=== PATIENT | female | born 1935 | race African-American/Black ===

== ENCOUNTER 2019-04-08 19:20 | Inpatient (IN) | payer MEDICARE, MEDICAID ==
[~2019-04-08] VITALS: Ht 162.6 cm; Wt 68.9 kg
[2019-04-08] MEDS ORDERED: Azithromycin 500 MG in D5W 275 ML IVPB ONE (19:30)
[2019-04-08] MEDS ORDERED: Vancomycin 1.25gm/NS Premix 275 ML IVPB SCH (19:30)
[2019-04-08 19:45] VITALS: BP 149/87
[2019-04-08 20:19] LABS: APPEARANCE,URINE SLIGHTLY CLOUDY; BILIRUBIN, URINE 1+ (NEGATIVE); GLUCOSE, URINE (UA) NEGATIVE (NEGATIVE); HEMATOCRIT 39.5 % (37.0-47.0); HEMOGLOBIN 12.3 G/DL (12.0-16.0); KETONES,URINE NEGATIVE (NEGATIVE); LEUKOCYTE ESTERASE ,URINE 1+ (NEGATIVE); MEAN CORPUSCULAR VOLUME 70 FL (80-99); NITRITE,URINE NEGATIVE (NEGATIVE); PH,URINE 5 (4.5-8.0); PLATELET COUNT 131 K/UL (150-450); PROTEIN,URINE 3+ (NEGATIVE); RED BLOOD COUNT 5.62 M/UL (4.20-5.40); RED CELL DISTRIBUTION WIDTH 14.2 % (11.6-14.8); UROBILINOGEN,URINE 4 MG/DL (0.0-1.0); WHITE BLOOD COUNT 17.7 K/UL (4.8-10.8)
[2019-04-08 20:20] LABS: COLOR,URINE AMBER
[2019-04-08 20:29] LABS: ANION GAP 7 mmol/L (5-15); BLOOD UREA NITROGEN 37 mg/dL (7-18); CALCIUM 8.3 MG/DL (8.5-10.1); CARBON DIOXIDE 27 MMOL/L (21-32); CHLORIDE 102 MMOL/L (98-107); CREATININE 1.6 MG/DL (0.55-1.30); POTASSIUM 3.7 MMOL/L (3.5-5.1); SODIUM 136 MMOL/L (136-145)
[2019-04-08] MEDS ORDERED: ALBUTEROL SULF8.5 GM INH (20:38)
[2019-04-08] MEDS ORDERED: DIPHENHYDRAMINE25 M1 ORAL (20:39)
[2019-04-08] MEDS ORDERED: DEPAKOTE250 MG PO (20:39)
[2019-04-08] MEDS ORDERED: METOPROLOL TART25 MG ORAL (20:40)
[2019-04-08] MEDS ORDERED: HYDRALAZINE HCL25 M1 ORAL (20:40)
[2019-04-08] MEDS ORDERED: FUROSEMIDE20 M1 ORAL (20:40)
[2019-04-08 20:42] LABS: ALANINE AMINOTRANSFERASE 43 U/L (12-78); ALBUMIN 2.6 G/DL (3.4-5.0); ALBUMIN/GLOBULIN RATIO 0.5 (1.0-2.7); ALKALINE PHOSPHATASE 86 U/L (46-116); ASPARTATE AMINO TRANSFERASE 70 U/L (15-37); CKMB < 0.5 NG/ML (0.0-3.6)
[2019-04-08] MEDS ORDERED: TRAMADOL HCL50 MG ORAL (20:42)
[2019-04-08] MEDS ORDERED: TYLENOL325 MG ORAL (20:42)
[2019-04-08] MEDS ORDERED: Pantoprazole Inj IVP ONE (20:45)
--- NOTE | 2019-04-08 20:54 | Emergency Room Report ---
History of Present Illness General Chief Complaint: Fever Present Illness HPI patient is an 84-year-old female presents after increased fever from senior living. Patient had prior history of dementia as well as increased debilitation. Patient had been given antipyretic at her facility. Patient was noted to have increased work of breathing as well as increased confusion compared to baseline. Patient had been sent in for further evaluation of fever. She had previous episodes of GI bleeding in the past. Patient was sent by Dr. Mchugh Allergies: Coded Allergies: PENICILLINS (Verified Allergy, Unknown, 04/08/19) Patient History Past Medical History: see triage record Reviewed Nursing Documentation: PMH: Agreed; PSxH: Agreed Review of Systems All Other Systems: negative except mentioned in HPI Physical Exam Vital Signs Date Time Temp Pulse Resp B/P (MAP) Pulse Ox O2 Delivery O2 Flow Rate FiO2 04/08/19 19:16 99.7 155 18 149/87 (107) 94 Room Air Sp02 EP Interpretation: reviewed, normal General Appearance: normal inspection, no apparent distress, non-toxic Head: atraumatic ENT: normal ENT inspection, hearing grossly normal, normal voice Neck: normal inspection, full range of motion, supple, no bony tend Respiratory: normal inspection, lungs clear, normal breath sounds, no respiratory distress, no retraction, no wheezing Cardiovascular #1: regular rate, rhythm, no edema Gastrointestinal: normal inspection, normal bowel sounds, non tender, soft, no guarding, no hernia Genitourinary: no CVA tenderness Musculoskeletal: normal inspection, back normal, normal range of motion Neurologic: normal inspection, alert, responsive, speech normal Psychiatric: normal inspection, judgement/insight normal, mood/affect normal Medical Decision Making Diagnostic Impression: Primary Impression: Severe sepsis Additional Impression: Urinary tract infection ER Course Patient presented for increased generalized weakness and fever. Differential diagnosis include was not limited to pneumonia, urinary tract infection, dehydration, among others. Because of complexity of patient's case laboratory tests and imaging studies were ordered. Patient was noted to have compos medical condition and appears to have some evidence of severe sepsis as she is markedly tachycardic. Left her testing showed elevated white blood count as well as elevated lactic acid level. Patient was empirically started on IV antibiotics as well as IV fluids. Per discussion with the patient's family as well as the patient's pulse patient is a DNR. She was noted to have some improvement in tachycardia after IV hydration. Dr. Braydon Mchugh was contacted for inpatient management. Labs Test 04/08/19 19:55 White Blood Count 17.7 K/UL (4.8-10.8) Red Blood Count 5.62 M/UL (4.20-5.40) Hemoglobin 12.3 G/DL (12.0-16.0) Hematocrit 39.5 % (37.0-47.0) Mean Corpuscular Volume 70 FL (80-99) Mean Corpuscular Hemoglobin 21.9 PG (27.0-31.0) Mean Corpuscular Hemoglobin Concent 31.2 G/DL (32.0-36.0) Red Cell Distribution Width 14.2 % (11.6-14.8) Platelet Count 131 K/UL (150-450) Mean Platelet Volume 6.5 FL (6.5-10.1) Neutrophils (%) (Auto) % (45.0-75.0) Lymphocytes (%) (Auto) % (20.0-45.0) Monocytes (%) (Auto) % (1.0-10.0) Eosinophils (%) (Auto) % (0.0-3.0) Basophils (%) (Auto) % (0.0-2.0) Urine Color [place] Urine Appearance Slightly cloudy Urine pH 5 (4.5-8.0) Urine Specific [place] 1.020 (1.005-1.035) Urine Protein 3+ (NEGATIVE) Urine Glucose (UA) Negative (NEGATIVE) Urine Ketones Negative (NEGATIVE) Urine Blood 3+ (NEGATIVE) Urine Nitrite Negative (NEGATIVE) Urine Bilirubin 1+ (NEGATIVE) Urine Ictotest Negative (NEGATIVE) Urine Urobilinogen 4 MG/DL (0.0-1.0) Urine Leukocyte Esterase 1+ (NEGATIVE) Urine RBC 10-15 /HPF (0 - 2) Urine WBC 5-10 /HPF (0 - 2) Urine Squamous Epithelial Cells Many /LPF (NONE/OCC) Urine Bacteria Moderate /HPF (NONE) Sodium Level 136 MMOL/L (136-145) Potassium Level 3.7 MMOL/L (3.5-5.1) Chloride Level 102 MMOL/L (98-107) Carbon Dioxide Level 27 MMOL/L (21-32) Anion Gap 7 mmol/L (5-15) Blood Urea Nitrogen 37 mg/dL (7-18) Creatinine 1.6 MG/DL (0.55-1.30) Estimat Glomerular Filtration Rate mL/min (>60) Glucose Level 108 MG/DL (74-106) Lactic Acid Level 3.30 mmol/L (0.4-2.0) Calcium Level 8.3 MG/DL (8.5-10.1) Aspartate Amino Transf (AST/SGOT) 70 U/L (15-37) Alanine Aminotransferase (ALT/SGPT) 43 U/L (12-78) Alkaline Phosphatase 86 U/L (46-116) Creatine Kinase MB < 0.5 NG/ML (0.0-3.6) Troponin I 0.037 ng/mL (0.000-0.056) Total Protein 8.0 G/DL (6.4-8.2) Albumin 2.6 G/DL (3.4-5.0) Globulin 5.4 g/dL Albumin/Globulin Ratio 0.5 (1.0-2.7) EKG Diagnostic Results Rate: tachycardiac Rhythm: NSR ST Segments: no acute changes Reevaluation Time: 20:52 Last Vital Signs Date Time Temp Pulse Resp B/P (MAP) Pulse Ox O2 Delivery O2 Flow Rate FiO2 04/08/19 19:45 155 18 Room Air 04/08/19 19:45 99.7 149/87 94 Status: unchanged Reevaluation Impression Slightly improved heart rate as well as mental status. Patient's tachycardia had somewhat improved. Continued respiratory difficulty. Disposition: ADMITTED INPATIENT Condition: Serious Lionel Zepeda MD Apr 08, 2019 20:54
[2019-04-08 21:04] LABS: BILIRUBIN,DIRECT 0.8 MG/DL (0.0-0.3)
[2019-04-08] MEDS ORDERED: Vancomycin 1 GM in NS 275 ML IVPB ONE (21:15)
[2019-04-08] MEDS ORDERED: Acetaminophen 650 MG SUPP RECTAL ONE (21:45)
[2019-04-08] MEDS ORDERED: D5 1/2NS 1,000 ML IV SCH (23:30)
[2019-04-08] MEDS ORDERED: Albuterol/Ipratropium 3ml neb HHN PRN (23:30)
[2019-04-09] VITALS: BP 130/57
[2019-04-09 04:00] VITALS: BP 158/76
[2019-04-09] MEDS ORDERED: traMADol 50mg tab ORAL PRN (04:00)
[2019-04-09 05:46] LABS: HEMATOCRIT 37.2 % (37.0-47.0); HEMOGLOBIN 11.7 G/DL (12.0-16.0); MEAN CORPUSCULAR VOLUME 71 FL (80-99); PLATELET COUNT 113 K/UL (150-450); RED BLOOD COUNT 5.23 M/UL (4.20-5.40); RED CELL DISTRIBUTION WIDTH 16.2 % (11.6-14.8)
[2019-04-09 05:56] LABS: WHITE BLOOD COUNT 25.9 K/UL (4.8-10.8)
[2019-04-09] MEDS ORDERED: Metoprolol Succinate XL 50mg tab ORAL SCH (06:30)
[2019-04-09] MEDS ORDERED: TRAMADOL HCL50 MG ORAL (07:51)
[2019-04-09] MEDS ORDERED: ACETAMINOPHEN325 M1 ORAL (07:51)
[2019-04-09] MEDS ORDERED: HYDRALAZINE HCL25 M1 ORAL (07:51)
[2019-04-09] MEDS ORDERED: MELATONIN3 MG ORAL (07:51)
[2019-04-09] MEDS ORDERED: COLACE100 MG ORAL (07:51)
[2019-04-09] MEDS ORDERED: DEPAKOTE250 MG PO (07:51)
[2019-04-09 09:00] VITALS: BP 134/76
[2019-04-09] MEDS ORDERED: Docusate 100mg cap ORAL SCH (09:00)
[2019-04-09] MEDS ORDERED: Depakote 500mg tab ORAL SCH (09:00)
[2019-04-09] MEDS ORDERED: Heparin 5000 units/ml inj SUBQ SCH (09:00)
[2019-04-09] MEDS: Heparin 5000 units/ml inj SUBQ SCH ×2 (09:35→21:00)
[2019-04-09] MEDS: D5 1/2NS 1,000 ML IV SCH ×2 (09:36→19:13)
--- NOTE | 2019-04-09 09:58 | Consultation ---
Consult Note Assessment/Plan HPI: 84yo woman with PMH below [facility], worsened confusion, refusal to eat, vomiting. [facility] 102 [facility]. Per [facility] staff, pt was vomiting for one day. Pt currently unable to provide history. She states yes to every question. Cannot follow commands. ID consulted for fever. ROS: per HPI PMH: HTN Dementia Seizure HF Anxiety Anemia MDD Hearing loss COPD Asthma GERD OA Hep C Meds: reviewed All: PCN SHx: [facility] resident FHx: noncontributory VS: reviewed Gen: NAD HEENT: anicteric sclera CV: RRR Resp: RRR. no wheezes Abd: normoactive Bs+. Soft. no TTP Ext: no LE edema Labs: reviewed Assessment: Tmax 102 [facility] Leukocytosis, uptrending Lactic acidosis Influenza flu A positive On 2L NC CXR: No definite infiltrate or pulmonary vascular congestion identified. The heart is borderline enlarged. The aorta is mildly enlarged consistent with atherosclerotic vascular disease. The bones are osteopenic. r/o bacteremia 04/08 BCx: P Possible UTI UA 5-10WBC UCx: P 03/25/19 HIV Abt negative Plan: Oseltamivir #1 Continue Azithromycin #2 04/08 SP Vancomycin and Azithromycin #1 f/u bcx f/u ucx elevate HOB, aspiration precaution Thank you for this consult. [facility] will continue to follow the patient with you. Tana Steinberg MD Apr 09, 2019 09:58
[2019-04-09 10:18] LABS: HEMATOCRIT 31.9 % (37.0-47.0); MEAN CORPUSCULAR VOLUME 71 FL (80-99); PLATELET COUNT 100 K/UL (150-450); RED BLOOD COUNT 4.51 M/UL (4.20-5.40); RED CELL DISTRIBUTION WIDTH 14.3 % (11.6-14.8)
[2019-04-09 10:23] LABS: WHITE BLOOD COUNT 23.9 K/UL (4.8-10.8)
[2019-04-09 10:29] LABS: ANION GAP 7 mmol/L (5-15); BLOOD UREA NITROGEN 42 mg/dL (7-18); CALCIUM 7.5 MG/DL (8.5-10.1); CARBON DIOXIDE 23 MMOL/L (21-32); CHLORIDE 104 MMOL/L (98-107); CREATININE 1.8 MG/DL (0.55-1.30); POTASSIUM 4.3 MMOL/L (3.5-5.1); SODIUM 134 MMOL/L (136-145)
--- NOTE | 2019-04-09 11:01 | Diagnostic Imaging Report ---
Indication: Dyspnea Comparison: None A single view chest radiograph was obtained. Findings: No definite infiltrate or pulmonary vascular congestion identified. The heart is borderline enlarged. The aorta is mildly enlarged consistent with atherosclerotic vascular disease. The bones are osteopenic. Impression: No acute disease
--- NOTE | 2019-04-09 11:23 | General Progress Note ---
Progress Note Progress Note [id number] full consult dictated Yael Giang MD Apr 09, 2019 11:23
[2019-04-09 11:26] LABS: APPEARANCE,URINE SLIGHTLY CLOUDY; BILIRUBIN, URINE 1+ (NEGATIVE); COLOR,URINE BROWN; GLUCOSE, URINE (UA) NEGATIVE (NEGATIVE); KETONES,URINE 1+ (NEGATIVE); LEUKOCYTE ESTERASE ,URINE 1+ (NEGATIVE); NITRITE,URINE NEGATIVE (NEGATIVE); PH,URINE 5 (4.5-8.0); PROTEIN,URINE 2+ (NEGATIVE); UROBILINOGEN,URINE 4 MG/DL (0.0-1.0)
[2019-04-09 12:00] VITALS: BP 138/70
[2019-04-09] MEDS: Azithromycin 250mg tab ORAL SCH (12:57)
--- NOTE | 2019-04-09 15:09 | Cardiology Report ---
APPROVED REPORT EXAM: Two-dimensional and M-mode echocardiogram with Doppler and color Doppler. INDICATION Other M-Mode DIMENSIONS IVSd1.4 (0.7-1.1cm)Left Atrium (MM)3.3 (1.6-4.0cm) LVDd3.9 (3.5-5.6cm)Aortic Root2.7 (2.0-3.7cm) PWd1.2 (0.7-1.1cm)Aortic Cusp Exc.1.6 (1.5-2.0cm) LVDs2.0 (2.5-4.0cm) PWs1.3 cm Normal left ventricular chamber size and systolic function. Dyskinetic septal motion. Left ventricular ejection fraction estimated to be 55-60 %. Mild left ventricular hypertrophy. Anterior Echo-free space, may be due to pericardial fat or effusion. All other cardiac chamber sizes are within normal limits. Focal aortic valve sclerosis with adequate cusp excursion. Thickened mitral valve leaflets with normal excursion. Mild mitral annulus and aortic root calcification. Pulmonic valve not well visualized. Normal tricuspid valve structure. IVC is normal in size without physiological collapse. A color flow and spectral Doppler study was performed and revealed: No aortic regurgitation. Mild mitral regurgitation. Mitral diastolic velocities suggest mild left ventricular diastolic dysfunction (Grade I). Mild tricuspid regurgitation. Tricuspid systolic velocities suggests peak right ventricular systolic pressure of 43 mmHg, consistent with mild pulmonary hypertension. No pulmonic regurgitation present.
--- NOTE | 2019-04-09 15:45 | History and Physical Report ---
DATE OF ADMISSION: 04/08/2019 DATE AND TIME SEEN: 04/09/2019 at 9 a.m. CONSULTANTS: 1. Brennan Barnett M.D. 2. Yael Giang M.D. 3. Maikel Garrett M.D. 4. Ferny Lawton M.D. 5. Richie Payne M.D. CHIEF COMPLAINT: UTI, sepsis, tachycardia, confusion. BRIEF HISTORY: This is an 84-year-old female from [facility], who presented with above-mentioned diagnoses, admitted to step-down for further care. Currently, O2 NC, slight short of breath in bed. Not talking much. REVIEW OF SYSTEMS: Unavailable due to confusion. PAST MEDICAL HISTORY: Include confusion, renal insufficiency. PAST SURGICAL HISTORY: Unknown. ALLERGIES: Penicillin. MEDICATIONS: Include mirtazapine, heparin, furosemide, divalproex, Tylenol, hydralazine, tramadol, albuterol, magnesium, vancomycin, and . SOCIAL HISTORY: Unable to obtain secondary to the patient's condition. PHYSICAL EXAMINATION: GENERAL: Calm, O2 NC, slight short of breath in bed. Disoriented x3, in no acute distress. VITAL SIGNS: Temperature is 99, pulse 107, respirations 22, and blood pressure 134/76. CARDIOVASCULAR: No murmur. LUNGS: Poor air exchange. ABDOMEN: Bowel sounds distant. EXTREMITIES: No cyanosis, clubbing, or edema. NEUROLOGIC: The patient moves all extremities, slightly weak. LABORATORY AND DIAGNOSTIC DATA: Labs at this time show white count 25, H and H 11/37, and platelets 113,000. BMP shows BUN and creatinine 37/1.6. Lactic acid 3.3. Troponin 0.037. Albumin 2.6. Urinalysis showed 1+ leukocyte esterase. ASSESSMENT: 1. Urinary tract infection. 2. Sepsis. 3. Tachycardia. 4. Renal insufficiency. 5. Malnutrition. 6. Confusion. PLAN: 1. O2 and pulmonary treatment. 2. Antibiotics per Infectious Disease. 3. PT and dietary evaluation. 4. Resume home medications. 5. CBC and BMP in the morning. Braydon Mchugh D.O. DR: CRISTHIAN JOB#: [id number] CC:
[2019-04-09 16:00] VITALS: BP 140/89
--- NOTE | 2019-04-09 17:00 | Consultation ---
DATE OF CONSULTATION: 04/09/2019 NEPHROLOGY CONSULTATION CONSULTING PHYSICIAN: Yael Giang M.D. REFERRING PHYSICIAN: Braydon Mchugh M.D. REASON FOR CONSULTATION: Acute renal failure. HISTORY OF PRESENT ILLNESS: The patient is an 84-year-old female with extensive medical history including COPD, hypertension, history of dementia, schizophrenia who found to have fever of 102 at [facility]. Subsequently, the patient was sent to ER. In the ER, the patient found to be severely dehydrated, hypotensive. Upon ER evaluation, the patient received multiple doses of . The patient did not have any urine output this morning. A Hansen catheter was placed and the patient had more than 500 mL of of urine via Hansen catheter. The patient found to have an acute renal failure. I was called for management of renal disease and electrolyte imbalance. PAST MEDICAL HISTORY: 1. Hypertension. 2. COPD. 3. GERD. 4. Hepatitis C. 5. Dementia. 6. Schizophrenia. ALLERGIES: She is allergic to penicillin. MEDICATIONS: List was reviewed. REVIEW OF SYSTEMS: Unable to obtain due to patient's condition. The patient opened her eyes with verbal stimuli and not following commands. PHYSICAL EXAMINATION: VITAL SIGNS: The patient has a temperature of 99.7, pulse rate of 107, blood pressure 134/76, and respiratory rate of 22. HEAD AND NECK: Bitemporal wasting. Extraocular movement intact. Pupils are reactive to light and accommodation. Very dry mucous membranes. LUNGS: Clear to auscultation. CARDIAC: Regular rate and rhythm. S1 and S2 normal. No rub. ABDOMEN: Soft, nontender, and nondistended. EXTREMITIES: A 2+ edema. No clubbing. No cyanosis. LABORATORY AND DIAGNOSTIC DATA: Sodium 136, potassium 3.7, chloride 102, bicarb 24, BUN 36, creatinine 1.6, glucose of 108, calcium of 8.3. Total bilirubin of 2, AST of 70, ALT of 43. Troponin is less than 0.5. Total protein of 8 and albumin of 2.6. UA revealed specific gravity of 1.020, protein 3+, blood 3+, leukocyte esterase 1, wbc's count of 5 to 10, rbc's 10 to 15, bacteria many. CBC revealed WBC count of 23,000, hemoglobin of 10, hematocrit of 31, and platelet count of 100. ASSESSMENT: 1. Acute renal failure, the etiology of acute renal failure is ATN due to unstable hemodynamics. 2. Hypocalcemia, correct for albumin. The patient may have normal albumin. 3. Failure to thrive. 4. Fever. 5. Urinary tract infection. 6. Hematuria. PLAN: 1. We will obtain UA. 2. Check the random urine sodium and creatinine to calculate fractional excretion of sodium. 3. Check proteinuria. 4. Check microalbuminuria. 5. Ultrasound of the kidney. 6. IV hydration. 7. Check prealbumin level for evaluation of nutritional status. 8. Check vitamin D level for hypocalcemia. At the end, I would like to thank, Dr. Braydon Mchugh, for allowing me to participate in the care of this patient. Yael Giang M.D. DR: Lele JOB#: [id number] CC:
--- NOTE | 2019-04-09 18:01 | Consultation ---
DATE OF CONSULTATION: 04/09/2019 NOTE: CANCELED DICTATION HISTORY OF PRESENT ILLNESS: The patient is an 84-year-old female. This is a female patient who came into the hospital should she . Wyatt Payne M.D. DR: RICHMOND JOB#: [id number] CC:
--- NOTE | 2019-04-09 18:30 | Consultation ---
DATE OF CONSULTATION: 04/09/2019 INITIAL PSYCHIATRIC CONSULTATION CONSULTING PHYSICIAN: Wyatt Payne M.D. HISTORY OF PRESENT ILLNESS: This is an 84-year-old female patient. She was admitted to the hospital because she had [facility] affect, but she also has increased altered mental status, confusion, decline in cognition below baseline. She has got feelings of helplessness, hopelessness, low energy, poor appetite, loss of interest in activity. She has got dehydration and that is why she does require inpatient treatment at this time. at bedside, very confused, disorganized, poor historian. MEDICAL HISTORY: This patient has a medical history significant for sepsis and some problems breathing before and also she has hypertension as well for. ALLERGIES: To penicillin. PSYCHOTROPIC MEDICATIONS ON ADMISSION: The patient takes Depakote 500 mg daily per chart. SUBSTANCE ABUSE HISTORY: No history of any drug and alcohol use. FAMILY PSYCHIATRIC HISTORY: Denies. PAIN ASSESSMENT: 08/02 pain. DEVELOPMENTAL PROBLEMS: Denies. SOCIAL HISTORY: This patient is financially supported by [employer] and Medicare. . PSYCHIATRIC HISTORY: History of major depression with psychotic features, rule out dementia with psychosis. STRENGTHS: She is motivated to get better, has a place to live. WEAKNESSES: Minimal support system. MENTAL STATUS EXAMINATION: This is an 84-year-old female. Appearance is disheveled. Attitude, irritable and agitated. Affect, guarded and restricted. Intellect poor, she does not know current events, does not know last four presidents. Mood, depressed and anxious. Motor activity, psychomotor agitation. Attention span is poor because she cannot do serial sevens or spell world backwards. Orientation x2. She is oriented to person and place, not to time and situation. Speech is low volume and slurred. Thought process, disorganized and illogical. Thought content, auditory hallucinations and paranoia. Perception is poor because she has perceptual disturbances such as auditory hallucinations and paranoid delusions. Abstract reasoning is poor because she does not understand proverbs, only has concrete thinking. Insight is poor because she does not recognize having psych disorder. Judgment is poor because she does not accept consequences to her actions. She is not able to make clear decisions for herself. Short-term memory 0/3 of a 3-word recall. Long-term memory is poor because she has difficulty to recall any long-term events in her life such as high school that she went to. DIAGNOSES: 1. Major depressive disorder, mild, recurrent with psychotic features, rule out dementia with psychosis. 2. No secondary. 3. Medical, sepsis and fever. 4. Psychosocial stressors financial. 5. Function impairment is mild. PLAN: For this patient is, I am going to start the patient on Namenda at a dose of 5 mg daily to prevent any further decline in cognition. She will continue to be followed by Psychiatry throughout hospital course. 20 minutes of insight-oriented psychotherapy was provided to help this patient recognize her psychiatric symptoms and cognitive deficits, so she has better understanding and good impulse control on the unit. 20 minutes of supportive psychotherapy. Chart reviewed. Discussed with staff. The patient is seen and assessed at bedside. I would like to thank, Dr. Braydon Mchugh, for this interesting consultation. Wyatt Payne M.D. DR: GENE JOB#: [id number] CC:
--- NOTE | 2019-04-09 18:45 | Consultation ---
DATE OF CONSULTATION: 04/09/2019 NEPHROLOGY CONSULTATION CONSULTING PHYSICIAN: Yael Giang M.D. REFERRING PHYSICIAN: Braydon Mchugh M.D. REASON FOR CONSULTATION: Acute renal failure. HISTORY OF PRESENT ILLNESS: The patient is an 84-year-old female with extensive medical history including COPD, hypertension, history of dementia, schizophrenia who found to have a fever [facility] 102 [facility] the [facility]. Subsequently, the patient was sent to ER. In the ER, the patient found to be severely dehydrated, hypotensive. Upon ER evaluation, the patient received multiple doses of bolus . The patient did not have any urine output this morning. A Hansen catheter was placed and the patient had more than 500 mL of of urine via Hansen catheter. The patient found to have an acute renal failure. I was called for management of renal disease and electrolyte imbalance. PAST MEDICAL HISTORY: 1. Hypertension. 2. COPD. 3. GERD. 4. Hepatitis C. 5. Dementia. 6. Schizophrenia. ALLERGIES: She is allergic to penicillin. MEDICATIONS: List was reviewed. REVIEW OF SYSTEMS: Unable to obtain due to patient's condition. The patient opened her eyes with verbal stimuli and not following commands. PHYSICAL EXAMINATION: VITAL SIGNS: The patient has a temperature of 99.7, pulse rate of 107, blood pressure 134/76, and respiratory rate of 22. HEAD AND NECK: Bitemporal wasting. Extraocular movement intact. Pupils are reactive to light and accommodation. Very dry mucous membranes. LUNGS: Clear to auscultation. CARDIAC: Regular rate and rhythm. S1 and S2. No murmur. No rub. ABDOMEN: Soft, nontender, and nondistended. EXTREMITIES: A 2+ edema. No clubbing. No cyanosis. LABORATORY AND DIAGNOSTIC DATA: Sodium 136, potassium 3.7, chloride 102, bicarb 24, BUN 36, creatinine 1.6, glucose of 108, calcium of 8.3. Total bilirubin of 2, AST of 70, ALT of 43. Troponin is less than 0.5. Total protein of 8 and albumin of 2.6. UA revealed specific gravity of 1.020, protein 3+, blood 3+, leukocyte esterase 1, wbc count of 5 to 10, rbc's 10 to 15, bacteria many. CBC revealed WBC count of 23,000, hemoglobin of 10, hematocrit of 31, and platelet count of 100. ASSESSMENT: 1. Acute renal failure, the etiology of acute renal failure is ATN due to unstable hemodynamics. 2. Hypocalcemia, correct hypocalcemia for albumin. The patient may have normal albumin. 3. Failure to thrive. 4. Fever. 5. Urinary tract infection. 6. Hematuria. PLAN: 1. We will obtain UA. 2. Check the random urine sodium and creatinine to calculate fractional excretion of sodium. 3. Check proteinuria. 4. Check microalbuminuria. 5. Ultrasound of the kidney. 6. IV hydration. 7. Check prealbumin level for evaluation of nutritional status. 8. Check vitamin D level for hypocalcemia. At the end, I would like to thank, Dr. Braydon Mchugh, for allowing me to participate in the care of this patient. Yael Giang M.D. DR: Lele JOB#: [id number] CC:
[2019-04-09 20:00] VITALS: BP 126/72
--- NOTE | 2019-04-09 22:15 | Consultation ---
DATE OF CONSULTATION: 04/09/2019 PULMONARY CONSULTATION CONSULTING PHYSICIAN: Ferny Lawton M.D. REFERRING PHYSICIAN: Braydon Mchugh D.O. HISTORY OF PRESENT ILLNESS: This is an 84-year-old female, who was brought to the hospital with fever. She is a longterm resident with dementia. She was also found to be short of breath. The patient reports a previous history of GI bleeding. This is per review of medical records. PAST MEDICAL HISTORY: Notable for hypertension, dementia, seizure disorder, anxiety, anemia, hearing loss, COPD, GERD, and hep C. ALLERGIES: Penicillin. HOME MEDICATIONS: Reviewed and reconciled in the chart. REVIEW OF SYSTEMS: . PHYSICAL EXAMINATION: GENERAL: Reveals an elderly female. VITAL SIGNS: Blood pressure is 110/70, heart rate is 94, T-max 99.1, previously was 100. HEENT: Unremarkable. LUNGS: Clear breath sounds. ABDOMEN: Soft. EXTREMITIES: There is no edema. NEUROLOGIC: Nonfocal. LABORATORY DATA: Lab testing shows white count 23,000, hemoglobin of 10, creatinine 1.8. Urinalysis shows few wbc's, serology is negative. So far, blood cultures are negative. Urine culture, no growth. IMAGING STUDIES: The patient underwent a chest x-ray yesterday, which showed . IMPRESSION: 1. Sepsis, source unknown. 2. Hypertension. 3. COPD. 4. Dementia. 5. . DISCUSSION: Agree with admission and care. The patient has been started on broad-spectrum antibiotics, with which I concur. We will order pulmonary hygiene and oxygen. We will follow as apron operator. Ferny Lawton M.D. DR: TRACY JOB#: [id number] CC:
[2019-04-10] VITALS: BP 136/58
[2019-04-10 04:00] VITALS: BP 143/53
[2019-04-10] MEDS: D5 1/2NS 1,000 ML IV SCH ×2 (05:14→13:32)
[2019-04-10 06:03] LABS: HEMATOCRIT 31.4 % (37.0-47.0); HEMOGLOBIN 9.7 G/DL (12.0-16.0); MEAN CORPUSCULAR VOLUME 71 FL (80-99); PLATELET COUNT 106 K/UL (150-450); RED BLOOD COUNT 4.39 M/UL (4.20-5.40); RED CELL DISTRIBUTION WIDTH 17.4 % (11.6-14.8)
[2019-04-10 06:10] LABS: WHITE BLOOD COUNT 22.5 K/UL (4.8-10.8)
--- NOTE | 2019-04-10 06:58 | Pulmonology Progress Note ---
Assessment/Plan Assessment/Plan IMPRESSION: 1. Sepsis, source unknown. 2. Hypertension. 3. COPD. 4. Dementia. DISCUSSION: Agree with admission and care. Continue abx. Continue pulmonary hygiene and oxygen. I will follow as hosted services analyst. Subjective Interval Events: WBC high (26K); no new complaints Constitutional: Reports: no symptoms HEENT: Repors: no symptoms Respiratory: Reports: no symptoms Cardiovascular: Reports: no symptoms Gastrointestinal/Abdominal: Reports: no symptoms Genitourinary: Reports: no symptoms Allergies: Coded Allergies: PENICILLINS (Verified Allergy, Unknown, 04/08/19) Objective Last 24 Hour Vital Signs Date Time Temp Pulse Resp B/P (MAP) Pulse Ox O2 Delivery O2 Flow Rate FiO2 04/10/19 04:00 98.7 92 19 143/53 (83) 98 04/10/19 04:00 Nasal Cannula 2.0 04/10/19 04:00 2.0 04/10/19 03:41 103 04/10/19 00:00 98.8 93 20 136/58 (84) 98 04/10/19 00:00 Nasal Cannula 2.0 04/09/19 23:56 86 04/09/19 20:00 100.8 98 18 126/72 (90) 98 04/09/19 20:00 2.0 04/09/19 20:00 Nasal Cannula 2.0 04/09/19 19:23 87 04/09/19 17:20 98.6 04/09/19 16:00 2.0 04/09/19 16:00 100.9 94 20 140/89 (106) 99 04/09/19 16:00 99 04/09/19 16:00 Nasal Cannula 2.0 04/09/19 12:00 94 04/09/19 12:00 Nasal Cannula 2.0 04/09/19 12:00 100.4 95 20 138/70 (92) 99 04/09/19 12:00 2.0 04/09/19 10:30 Nasal Cannula 2.0 04/09/19 09:00 99.1 107 22 134/76 (95) 100 04/09/19 08:00 Nasal Cannula 2.0 04/09/19 08:00 2.0 04/09/19 08:00 133 04/09/19 07:45 115 20 95 Nasal Cannula 2.0 28 04/09/19 07:40 95 Nasal Cannula 2.0 28 Intake and Output 04/09/19 04/10/19 19:00 07:00 Intake Total 1068 ml 1019.999 ml Output Total 250 ml 300 ml Balance 818 ml 719.999 ml Intake Oral 50 ml 15 ml IV Total 1018 ml 1004.999 ml Output Urine Total 250 ml 300 ml General Appearance: no acute distress HEENT: normocephalic Respiratory/Chest: chest wall non-tender, lungs clear Cardiovascular: normal peripheral pulses Abdomen: normal bowel sounds Microbiology Date/Time Source Procedure Growth Status 04/08/19 19:45 Blood Blood Culture - Preliminary NO GROWTH AFTER 24 HOURS Resulted 04/08/19 19:40 Blood Blood Culture - Preliminary NO GROWTH AFTER 24 HOURS Resulted 04/09/19 10:00 Nose - Final Complete 04/09/19 10:00 Nose - Final Complete 04/09/19 10:00 Indwelling Cath Urine Culture - Preliminary NO GROWTH Resulted 04/08/19 19:55 Urine,Clean Catch Urine Culture - Preliminary NO GROWTH AFTER 24 HOURS Resulted Laboratory Tests 04/09/19 08:20: Lactic Acid Level 2.80H 04/09/19 09:40: White Blood Count 23.9*H, Red Blood Count 4.51, Hemoglobin 10.0L, Hematocrit 31.9L, Mean Corpuscular Volume 71L, Mean Corpuscular Hemoglobin 22.1L, Mean Corpuscular Hemoglobin Concent 31.3L, Red Cell Distribution Width 14.3, Platelet Count 100L, Mean Platelet Volume 7.5, Neutrophils (%) (Auto) , Lymphocytes (%) (Auto) , Monocytes (%) (Auto) , Eosinophils (%) (Auto) , Basophils (%) (Auto) , Differential Total Cells Counted 100, Neutrophils % ( Manual) 84H, Lymphocytes % (Manual) 2L, Monocytes % (Manual) 3, Eosinophils % ( Manual) 0, Basophils % (Manual) 0, Band Neutrophils 11H, Platelet Estimate DecreasedL, Platelet Morphology Normal, Sodium Level 134L, Potassium Level 4.3, Chloride Level 104, Carbon Dioxide Level 23, Anion Gap 7, Blood Urea Nitrogen 42H, Creatinine 1.8H, Estimat Glomerular Filtration Rate , Glucose Level 80, Calcium Level 7.5L, Magnesium Level 1.8, Troponin I 0.040 04/09/19 10:00: Urine Color Brown, Urine Appearance Slightly cloudy, Urine pH 5, Urine Specific [place] 1.020, Urine Protein 2+H, Urine Glucose (UA) Negative, Urine Ketones 1+H , Urine Blood 2+H, Urine Nitrite Negative, Urine Bilirubin 1+H, Urine Ictotest Negative, Urine Urobilinogen 4H, Urine Leukocyte Esterase 1+H, Urine RBC 5-10H, Urine WBC 0-2, Urine Squamous Epithelial Cells Occasional, Urine Amorphous Sediment ModerateH, Urine Bacteria Few, Urine Mucus FewH, Urine Eosinophils None seen, Urine Random Creatinine [Pending], Urine Random Microalbumin [Pending ], Urine Random Total Protein 82H, Urine Creatinine 198.7H, Urine Microalbumin/ Creatinine Ratio [Pending], Urine Legionella Antigen [Pending] 04/09/19 14:05: Lactic Acid Level 1.90 04/10/19 03:40: White Blood Count 22.5*H, Red Blood Count 4.39, Hemoglobin 9.7L, Hematocrit 31.4L, Mean Corpuscular Volume 71L, Mean Corpuscular Hemoglobin 22.2L, Mean Corpuscular Hemoglobin Concent 31.0L, Red Cell Distribution Width 17.4H, Platelet Count 106L, Mean Platelet Volume 9.3, Neutrophils (%) (Auto) , Lymphocytes (%) (Auto) , Monocytes (%) (Auto) , Eosinophils (%) (Auto) , Basophils (%) (Auto) , Neutrophils % (Manual) [Pending], Lymphocytes % (Manual) [Pending], Platelet Estimate [Pending], Platelet Morphology [Pending], Sodium Level [Pending], Potassium Level [Pending], Chloride Level [Pending], Carbon Dioxide Level [Pending], Blood Urea Nitrogen [Pending], Creatinine [Pending], Estimat Glomerular Filtration Rate [Pending], Glucose Level [Pending], Calcium Level [Pending] Current Medications Medications (Trade) Dose Ordered Sig/Brady Route PRN Reason Start Time Stop Time Status Last Admin Dose Admin Acetaminophen (Tylenol) 650 mg Q4H PRN RECTAL Mild Pain (Pain Scale 1-3) 04/08/19 23:30 05/08/19 23:29 Acetaminophen (Tylenol) 650 mg Q6H PRN ORAL Mild Pain/Temp > 100.5 04/09/19 04:00 05/09/19 03:59 04/09/19 16:19 Albuterol/ Ipratropium (Albuterol/ Ipratropium) 3 ml Q6H PRN HHN Shortness of Breath 04/08/19 23:30 04/13/19 23:29 Azithromycin (Zithromax) 250 mg DAILY ORAL 04/09/19 12:00 04/16/19 11:59 04/09/19 12:57 Dextrose/Sodium Chloride 1,000 ml @ 100 mls/hr Q10H IV 04/09/19 10:00 05/09/19 09:59 04/10/19 05:14 Divalproex Sodium (Depakote Sprinkles) 125 mg EVERY 6 HOURS ORAL 04/10/19 12:00 05/10/19 11:59 Docusate Sodium (Colace) 100 mg DAILY ORAL 04/10/19 09:00 05/09/19 08:59 Furosemide (Lasix) 20 mg DAILY ORAL 04/09/19 09:00 05/09/19 08:59 04/09/19 09:33 Heparin Sodium (Porcine) (Heparin 5000 units/ml) 5,000 units EVERY 12 HOURS SUBQ 04/09/19 09:30 05/09/19 09:29 04/09/19 09:35 Hydralazine HCl (Apresoline) 25 mg Q6H PRN ORAL For High Blood Pressure 04/09/19 04:00 05/09/19 03:59 Oseltamivir Phosphate (Tamiflu) 30 mg DAILY ORAL 04/09/19 13:00 04/14/19 12:59 04/09/19 13:03 Tramadol HCl (Ultram) 50 mg Q8H PRN ORAL Severe Pain (Pain Scale 7-10) 04/09/19 04:00 04/16/19 03:59 Ferny Lawton MD Apr 10, 2019 06:58
[2019-04-10 07:22] LABS: ANION GAP 12 mmol/L (5-15); BLOOD UREA NITROGEN 47 mg/dL (7-18); CALCIUM 7.7 MG/DL (8.5-10.1); CARBON DIOXIDE 22 MMOL/L (21-32); CHLORIDE 108 MMOL/L (98-107); CREATININE 1.7 MG/DL (0.55-1.30); POTASSIUM 3.9 MMOL/L (3.5-5.1); SODIUM 142 MMOL/L (136-145)
[2019-04-10 08:00] VITALS: BP 129/60
[2019-04-10] MEDS: Heparin 5000 units/ml inj SUBQ SCH ×2 (09:00→20:14)
[2019-04-10] MEDS: Docusate 100mg/10ml Liq ORAL SCH (09:24)
[2019-04-10] MEDS: Azithromycin 250mg tab ORAL SCH (09:25)
--- NOTE | 2019-04-10 10:11 | General Progress Note ---
Assessment/Plan Problem List: (1) Malnutrition ICD Codes: E46 - Unspecified protein-calorie malnutrition SNOMED: 08308054 (2) Confusion ICD Codes: R41.0 - Disorientation, unspecified SNOMED: 262523518 (3) Renal insufficiency ICD Codes: N28.9 - Disorder of kidney and ureter, unspecified SNOMED: 099179614, 002156678 (4) Urinary tract infection ICD Codes: N39.0 - Urinary tract infection, site not specified SNOMED: 42012254 (5) Severe sepsis ICD Codes: A41.9 - Sepsis, unspecified organism; R65.20 - Severe sepsis without septic shock SNOMED: 31942793 Status: unchanged Assessment/Plan: o2 pulm tx abx pt diet eval cbc bmp am ltach eval Subjective Constitutional: Reports: weakness Allergies: Coded Allergies: PENICILLINS (Verified Allergy, Unknown, 04/08/19) All Systems: reviewed and negative except above Subjective o2nc sleepy Objective Last 24 Hour Vital Signs Date Time Temp Pulse Resp B/P (MAP) Pulse Ox O2 Delivery O2 Flow Rate FiO2 04/10/19 04:00 98.7 92 19 143/53 (83) 98 04/10/19 04:00 Nasal Cannula 2.0 04/10/19 04:00 2.0 04/10/19 03:41 103 04/10/19 00:00 98.8 93 20 136/58 (84) 98 04/10/19 00:00 Nasal Cannula 2.0 04/09/19 23:56 86 04/09/19 20:00 100.8 98 18 126/72 (90) 98 04/09/19 20:00 2.0 04/09/19 20:00 Nasal Cannula 2.0 04/09/19 19:23 87 04/09/19 17:20 98.6 04/09/19 16:00 2.0 04/09/19 16:00 100.9 94 20 140/89 (106) 99 04/09/19 16:00 99 04/09/19 16:00 Nasal Cannula 2.0 04/09/19 12:00 94 04/09/19 12:00 Nasal Cannula 2.0 04/09/19 12:00 100.4 95 20 138/70 (92) 99 04/09/19 12:00 2.0 04/09/19 10:30 Nasal Cannula 2.0 Intake and Output 04/09/19 04/10/19 18:59 06:59 Intake Total 1128 ml 1019.999 ml Output Total 250 ml 300 ml Balance 878 ml 719.999 ml Intake Oral 50 ml 15 ml IV Total 1078 ml 1004.999 ml Output Urine Total 250 ml 300 ml Laboratory Tests 04/09/19 14:05: Lactic Acid Level 1.90 04/10/19 03:40: White Blood Count 22.5*H, Red Blood Count 4.39, Hemoglobin 9.7L, Hematocrit 31.4L, Mean Corpuscular Volume 71L, Mean Corpuscular Hemoglobin 22.2L, Mean Corpuscular Hemoglobin Concent 31.0L, Red Cell Distribution Width 17.4H, Platelet Count 106L, Mean Platelet Volume 9.3, Neutrophils (%) (Auto) , Lymphocytes (%) (Auto) , Monocytes (%) (Auto) , Eosinophils (%) (Auto) , Basophils (%) (Auto) , Neutrophils % (Manual) [Pending], Lymphocytes % (Manual) [Pending], Platelet Estimate [Pending], Platelet Morphology [Pending], Sodium Level 142, Potassium Level 3.9, Chloride Level 108H, Carbon Dioxide Level 22, Anion Gap 12, Blood Urea Nitrogen 47H, Creatinine 1.7H, Estimat Glomerular Filtration Rate , Glucose Level 79, Calcium Level 7.7L Height (Feet): 5 Height (Inches): 4.00 Weight (Pounds): 126 General Appearance: lethargic EENT: normal ENT inspection Neck: normal alignment Cardiovascular: normal peripheral pulses, normal rate, regular rhythm Respiratory/Chest: chest wall non-tender, lungs clear, normal breath sounds Abdomen: normal bowel sounds, non tender, soft Extremities: normal inspection Edema: no edema noted Arm (L), no edema noted Arm (R), no edema noted Leg (L), no edema noted Leg (R), no edema noted Pedal (L), no edema noted Pedal (R), no edema noted Generalized Neurologic: motor weakness Skin: normal pigmentation, warm/dry Braydon Mchugh DO Apr 10, 2019 10:11
[2019-04-10 12:00] VITALS: BP 139/66
[2019-04-10] MEDS: Depakote 125mg Sprinkles ORAL SCH ×3 (12:42→23:18)
--- NOTE | 2019-04-10 14:46 | Nephrology Progress Note ---
Assessment/Plan Assessment 1. Hypertension. 2. COPD. 3. GERD. 4. Hepatitis C. 5. Dementia. 6. Schizophrenia. 7.positive flu Plan plan continue current iv check vit d nutritional support monitoring renal function avoid NSAID Replace electrolyte as need it Subjective Constitutional: Reports: no symptoms HEENT: Reports: no symptoms Genitourinary: Reports: no symptoms Neurologic/Psychiatric: Reports: no symptoms Objective Objective Last 24 Hour Vital Signs Date Time Temp Pulse Resp B/P (MAP) Pulse Ox O2 Delivery O2 Flow Rate FiO2 04/10/19 12:00 Nasal Cannula 2.0 04/10/19 12:00 117 04/10/19 12:00 2.0 04/10/19 12:00 98.6 116 24 139/66 (90) 94 04/10/19 08:00 Nasal Cannula 2.0 04/10/19 08:00 101 04/10/19 08:00 2.0 04/10/19 08:00 99.3 110 20 129/60 (83) 99 04/10/19 04:00 98.7 92 19 143/53 (83) 98 04/10/19 04:00 Nasal Cannula 2.0 04/10/19 04:00 2.0 04/10/19 03:41 103 04/10/19 00:00 98.8 93 20 136/58 (84) 98 04/10/19 00:00 Nasal Cannula 2.0 04/09/19 23:56 86 04/09/19 20:00 100.8 98 18 126/72 (90) 98 04/09/19 20:00 2.0 04/09/19 20:00 Nasal Cannula 2.0 04/09/19 19:23 87 04/09/19 17:20 98.6 04/09/19 16:00 2.0 04/09/19 16:00 100.9 94 20 140/89 (106) 99 04/09/19 16:00 99 04/09/19 16:00 Nasal Cannula 2.0 Intake and Output 04/09/19 04/10/19 19:00 07:00 Intake Total 1068 ml 1119.999 ml Output Total 250 ml 300 ml Balance 818 ml 819.999 ml Intake Oral 50 ml 15 ml IV Total 1018 ml 1104.999 ml Output Urine Total 250 ml 300 ml Laboratory Tests 04/10/19 03:40: White Blood Count 22.5*H, Red Blood Count 4.39, Hemoglobin 9.7L, Hematocrit 31.4L, Mean Corpuscular Volume 71L, Mean Corpuscular Hemoglobin 22.2L, Mean Corpuscular Hemoglobin Concent 31.0L, Red Cell Distribution Width 17.4H, Platelet Count 106L, Mean Platelet Volume 9.3, Neutrophils (%) (Auto) , Lymphocytes (%) (Auto) , Monocytes (%) (Auto) , Eosinophils (%) (Auto) , Basophils (%) (Auto) , Differential Total Cells Counted 100, Neutrophils % ( Manual) 77H, Lymphocytes % (Manual) 4L, Monocytes % (Manual) 7, Eosinophils % ( Manual) 0, Basophils % (Manual) 0, Band Neutrophils 12H, Platelet Estimate DecreasedL, Platelet Morphology Normal, Polychromasia 1+, Hypochromasia 1+, Anisocytosis 1+, Microcytosis 1+, Sodium Level 142, Potassium Level 3.9, Chloride Level 108H, Carbon Dioxide Level 22, Anion Gap 12, Blood Urea Nitrogen 47H, Creatinine 1.7H, Estimat Glomerular Filtration Rate , Glucose Level 79, Calcium Level 7.7L Height (Feet): 5 Height (Inches): 4.00 Weight (Pounds): 126 Objective HEAD AND NECK: Bitemporal wasting. Extraocular movement intact. Pupils are reactive to light and accommodation. Very dry mucous membranes. LUNGS: Clear to auscultation. CARDIAC: Regular rate and rhythm. S1 and S2. No murmur. No rub. ABDOMEN: Soft, nontender, and nondistended. EXTREMITIES: A 2+ edema. No clubbing. No cyanosis. Yael Giang MD Apr 10, 2019 14:46
--- NOTE | 2019-04-10 14:55 | Cardiology Report ---
APPROVED REPORT EKG Measurement Heart [id number] MS 130P12 [id number] Sinus tachycardia with PACs Minimal voltage criteria for LVH, may be normal variant Nonspecific ST and T wave abnormality Abnormal ECG
[2019-04-10 16:00] VITALS: BP 133/71
--- NOTE | 2019-04-10 16:00 | Consultation ---
DATE OF CONSULTATION: 04/09/2019 CARDIOLOGY CONSULTATION CONSULTING PHYSICIAN: Maikel Garrett M.D. REFERRING PHYSICIAN: Braydon Mchugh D.O. REASON FOR CONSULTATION: Management of hypotension, management of tachycardia. HISTORY OF PRESENT ILLNESS: The patient is a very unfortunate 84-year-old female, who is a resident of a nursing facility and was brought in to the [facility] Emergency Department with increased debilitation, fever, and altered mental status. The patient also was noted to have increased work of breathing. The patient was sent to this facility at the request of Dr. Mchugh, the primary care physician. At the time of arrival to this facility, the patient's blood pressure was 149/87 mmHg and heart rate was 155. A 12-lead electrocardiogram showed sinus tachycardia with no acute ischemic features. Initial white blood cell obtained in the emergency department was 17.7, with evidence of UTI. BUN and creatinine was 37 and 1.6 respectively. Troponin I level was within normal limits at 0.037. The patient was admitted to [facility] for further evaluation and management of sepsis/UTI. Cardiology consultation was made for evaluation and management of tachycardia. PAST MEDICAL HISTORY: History of hypertension, history of chronic obstructive pulmonary disease, history of gastroesophageal reflux disease, history of hepatitis C virus infection, history of dementia, history of schizophrenia, and history of GI bleed in the past. ALLERGIES: Penicillin. MEDICATIONS: List of medications in the nursing facility includes acetaminophen 650 q.6 hours p.r.n. pain, albuterol two puff inhaler every 4 to 6 hours as needed, Benadryl 25 mg q.6 hours p.r.n. pruritus, Depakote 500 mg daily, Colace 100 mg daily, Lasix 20 mg p.o. daily, hydralazine 25 mg q.6 hours p.r.n. blood pressure above 160, melatonin 3 mg nightly, metoprolol 25 mg twice daily, and Ultram 50 mg q.8 hours p.r.n. pain. PAST SURGICAL HISTORY: None. FAMILY HISTORY: No premature coronary artery disease in first-degree relatives. HABITS: No history of tobacco, alcohol, or illicit drug use. REVIEW OF SYSTEMS: HEENT: Denies any headache, diplopia, or blurred vision. CONSTITUTIONAL: Positive for fever and generalized weakness. CARDIOVASCULAR: Denies any chest pain, PND, orthopnea, leg swelling, or syncope. PULMONARY: Denies any cough, hemoptysis, or wheezing. Positive for shortness of breath. GASTROINTESTINAL: Denies any nausea, vomiting, diarrhea, constipation, abdominal pain, or GI bleed. GENITOURINARY: Denies any hematuria, dysuria, or incontinence. NEUROLOGIC: Altered mental status, but no signs of lateralization. PHYSICAL EXAMINATION: VITAL SIGNS: Blood pressure is 149/87, pulse of 155, respiration of 18, temperature 99.7 degrees Fahrenheit, and O2 saturation 94% on room air. GENERAL: The patient is a very unfortunate 84-year-old female, in no apparent respiratory distress. HEENT: Atraumatic and normocephalic. Anicteric. Pupils are equal, round, and reactive to light and accommodation. Extraocular muscles intact. NECK: JVP less than 5 cm. No carotid bruit. Carotid upstrokes 2+ bilaterally. CARDIOVASCULAR SYSTEM: Normal S1 and S2. Regular rate and rhythm. Tachycardic. No murmurs, gallops, or rubs. LUNGS: Clear to auscultation bilaterally. ABDOMEN: Soft, nontender, and nondistended. No hepatosplenomegaly. Positive bowel sounds. EXTREMITIES: No evidence of edema, clubbing, or cyanosis. LABORATORY FINDINGS: WBC was 17.7, hemoglobin was 12.3, hematocrit of 39.5, and platelet count is 131,000 with left shift; neutrophils 81% and 11% bandemia. Chemistry showed sodium 136, potassium 3.7, chloride 102, bicarbonate 27, BUN 37, creatinine 1.6, and glucose is 108. Lactic acid 3.3. Calcium is 8.3. Troponin I was 0.037. Albumin is 2.6. Magnesium 1.8. Chest x-ray showed no infiltration or pulmonary edema, borderline cardiomegaly, mildly enlarged aorta with atherosclerotic vascular disease, and osteopenic bones. A 2D echocardiography was done, which showed normal LV systolic function with LVEF of approximately 55% to 60%, mild LVH, mild mitral regurgitation, grade 1 LV diastolic dysfunction, mild tricuspid regurgitation with right ventricular systolic pressure calculated at 43 mmHg consistent with mild pulmonary hypertension. ASSESSMENT AND PLAN: The patient is a very unfortunate 84-year-old female, who was seen in Cardiology consultation. 1. Sinus tachycardia. This is most likely due to sepsis. The patient was seen by Infectious Disease and is on IV antibiotics. I would suggest to continue increasing the IV fluid to 75 mL per hour. A Hansen catheter was instructed to the nurse to be placed as she had 250 mL of urine in the bladder. 2D echocardiography had shown normal LV systolic function with normal intracardiac filling pressure. Therefore, there is no risk for congestive heart failure by giving fluid to this patient. 2. Acute kidney injury, most likely prerenal azotemia. The patient will be continued on IV fluid. 3. History of GI bleeding in the past. 4. History of hypertension. I would like to put a hold on all the blood pressure medication. We will use the hydralazine as needed. I would discontinue furosemide. 5. Mild pulmonary hypertension. The right ventricular systolic pressure measured at 43 mmHg. I would like to thank, Dr. Mchugh, for allowing me to participate in the care of this patient. Maikel Garrett M.D. DR: Kalin JOB#: [id number] CC:
--- NOTE | 2019-04-10 16:15 | Progress Note ---
DATE: 04/10/2019 SUBJECTIVE: This is a female patient who is 84 years old. She has increased altered mental status and confusion worsened by stress of her medical illness, sepsis, and fever as well. That is why, she does require inpatient treatment at this time, as she has altered mental status as a result. DIAGNOSIS: Major depressive disorder, mild, recurrent with psychotic features, rule out dementia with psychosis. PLAN: Treat her with a medication regimen of Namenda 5 mg daily. A 20 minutes of reality-based supportive psychotherapy provided. Chart reviewed. Discussed with staff. Seen and assessed at bedside. Wyatt Payne M.D. DR: STEPHEN JOB#: [id number] CC:
[2019-04-10] MEDS: Metoprolol 25mg tab ORAL SCH (18:17)
[2019-04-10 20:00] VITALS: BP 149/72
[2019-04-10] MEDS ORDERED: Digoxin 0.5mg/2ml Inj IVP SCH (20:45)
[2019-04-10] MEDS ORDERED: QUETIAPINE FUM100 MG ORAL (22:27)
[2019-04-10] MEDS ORDERED: CRANBERRY450 M4 PO (22:27)
[2019-04-10] MEDS ORDERED: ATIVAN1 MG ORAL (22:27)
[2019-04-10] MEDS ORDERED: QUETIAPINE FUMA50 MG ORAL (22:27)
--- NOTE | 2019-04-10 23:51 | Cardiology Progress Note ---
Assessment/Plan Assessment/Plan 1. Sinus tachycardia. This is most likely due to sepsis. Treat with IV ABx and hydration. 2D echocardiography had shown normal LV systolic function with normal intracardiac filling pressure. 2. Acute kidney injury, most likely prerenal azotemia, continue on IV fluid. 3. History of GI bleeding in the past. 4. History of hypertension. 5. Mild pulmonary hypertension. Subjective Subjective Sinus tachycardia at rate of 105, with frequent APCs and VPCs. Objective Last 24 Hour Vital Signs Date Time Temp Pulse Resp B/P (MAP) Pulse Ox O2 Delivery O2 Flow Rate FiO2 04/10/19 20:59 105 04/10/19 20:00 Nasal Cannula 2.0 04/10/19 20:00 2.0 04/10/19 20:00 98.6 110 20 149/72 (97) 100 04/10/19 20:00 120 04/10/19 19:54 94 Nasal Cannula 2.0 28 04/10/19 19:30 120 18 93 Nasal Cannula 2.0 28 04/10/19 18:17 130 133/71 04/10/19 18:12 99.0 04/10/19 16:43 100.9 04/10/19 16:00 Nasal Cannula 2.0 04/10/19 16:00 139 04/10/19 16:00 2.0 04/10/19 16:00 101.8 120 20 133/71 (91) 96 04/10/19 12:00 Nasal Cannula 2.0 04/10/19 12:00 117 04/10/19 12:00 2.0 04/10/19 12:00 98.6 116 24 139/66 (90) 94 04/10/19 08:00 Nasal Cannula 2.0 04/10/19 08:00 101 04/10/19 08:00 2.0 04/10/19 08:00 99.3 110 20 129/60 (83) 99 04/10/19 04:00 98.7 92 19 143/53 (83) 98 04/10/19 04:00 Nasal Cannula 2.0 04/10/19 04:00 2.0 04/10/19 03:41 103 04/10/19 00:00 98.8 93 20 136/58 (84) 98 04/10/19 00:00 Nasal Cannula 2.0 04/09/19 23:56 86 Intake and Output 04/09/19 04/10/19 19:00 07:00 Intake Total 1068 ml 1119.999 ml Output Total 250 ml 300 ml Balance 818 ml 819.999 ml Intake Oral 50 ml 15 ml IV Total 1018 ml 1104.999 ml Output Urine Total 250 ml 300 ml 2D Echo: LVEF 55-60%, MIld LVH, Grade LVDD, Mild MR, RVSP 43 mmHg Laboratory Tests Test 04/10/19 03:40 White Blood Count 22.5 K/UL (4.8-10.8) *H Red Blood Count 4.39 M/UL (4.20-5.40) Hemoglobin 9.7 G/DL (12.0-16.0) L Hematocrit 31.4 % (37.0-47.0) L Mean Corpuscular Volume 71 FL (80-99) L Mean Corpuscular Hemoglobin 22.2 PG (27.0-31.0) L Mean Corpuscular Hemoglobin Concent 31.0 G/DL (32.0-36.0) L Red Cell Distribution Width 17.4 % (11.6-14.8) H Platelet Count 106 K/UL (150-450) L Mean Platelet Volume 9.3 FL (6.5-10.1) Neutrophils (%) (Auto) % (45.0-75.0) Lymphocytes (%) (Auto) % (20.0-45.0) Monocytes (%) (Auto) % (1.0-10.0) Eosinophils (%) (Auto) % (0.0-3.0) Basophils (%) (Auto) % (0.0-2.0) Differential Total Cells Counted 100 Neutrophils % (Manual) 77 % (45-75) H Lymphocytes % (Manual) 4 % (20-45) L Monocytes % (Manual) 7 % (1-10) Eosinophils % (Manual) 0 % (0-3) Basophils % (Manual) 0 % (0-2) Band Neutrophils 12 % (0-8) H Platelet Estimate Decreased L Platelet Morphology Normal Polychromasia 1+ Hypochromasia 1+ Anisocytosis 1+ Microcytosis 1+ Sodium Level 142 MMOL/L (136-145) Potassium Level 3.9 MMOL/L (3.5-5.1) Chloride Level 108 MMOL/L (98-107) H Carbon Dioxide Level 22 MMOL/L (21-32) Anion Gap 12 mmol/L (5-15) Blood Urea Nitrogen 47 mg/dL (7-18) H Creatinine 1.7 MG/DL (0.55-1.30) H Estimat Glomerular Filtration Rate mL/min (>60) Glucose Level 79 MG/DL (74-106) Calcium Level 7.7 MG/DL (8.5-10.1) L Microbiology Date/Time Source Procedure Growth Status 04/08/19 19:45 Blood Blood Culture - Preliminary NO GROWTH AFTER 24 HOURS Resulted 04/08/19 19:40 Blood Blood Culture - Preliminary NO GROWTH AFTER 24 HOURS Resulted 04/09/19 10:00 Nose - Final Complete 04/09/19 10:00 Nose - Final Complete 04/09/19 10:00 Indwelling Cath Urine Culture - Preliminary NO GROWTH Resulted 04/08/19 19:55 Urine,Clean Catch Urine Culture - Preliminary NO GROWTH AFTER 24 HOURS Resulted Objective HEENT: Atraumatic and normocephalic. Anicteric. Pupils are equal, round, and reactive to light and accommodation. Extraocular muscles intact. NECK: JVP less than 5 cm. No carotid bruit. Carotid upstrokes 2+ bilaterally. CARDIOVASCULAR SYSTEM: Normal S1 and S2. Regular rate and rhythm. Tachycardic. No murmurs, gallops, or rubs. LUNGS: Clear to auscultation bilaterally. ABDOMEN: Soft, nontender, and nondistended. No hepatosplenomegaly. Positive bowel sounds. EXTREMITIES: No evidence of edema, clubbing, or cyanosis. Maikel Garrett MD Apr 10, 2019 23:51
[2019-04-11] VITALS: BP 148/76
[2019-04-11] MEDS: D5 1/2NS 1,000 ML IV SCH ×3 (02:59→23:41)
[2019-04-11 04:00] VITALS: BP 134/64
[2019-04-11] MEDS: Depakote 125mg Sprinkles ORAL SCH ×4 (05:45→23:22)
--- NOTE | 2019-04-11 07:53 | Infectious Diseases Prog Note ---
Assessment/Plan Assessment/Plan 84yo woman with PMH below presents from detention with fever, worsened confusion, refusal to eat, vomiting. Temp 102 at detention. Per detention staff, pt was vomiting for one day. Pt currently unable to provide history. She states yes to every question. Cannot follow commands. ID consulted for fever. Tmax 102 at detention Leukocytosis, improving Lactic acidosis Influenza flu A positive On 2L NC CXR: No definite infiltrate or pulmonary vascular congestion identified. The heart is borderline enlarged. The aorta is mildly enlarged consistent with atherosclerotic vascular disease. The bones are osteopenic. r/o bacteremia 04/08 BCx: ngtd Possible UTI UA 5-10WBC UCx: NG 03/25/19 HIV Abt negative PCN Allergy has tolerated Ceftriaxone and Cefepime in the past per detention records Plan: Oseltamivir #3/10 Continue Azithromycin #4 04/08 SP Vancomycin and Azithromycin #1 f/u bcx f/u ucx elevate HOB, aspiration precaution discussed with RN Thank you for this consult. [facility] will continue to follow the patient with you. Subjective Allergies: Coded Allergies: PENICILLINS (Verified Allergy, Unknown, 04/08/19) Subjective Tmax 101.8 Tachycardia better Stable on 2L Confused Very good appetite Objective Vital Signs Last 24 Hour Vital Signs Date Time Temp Pulse Resp B/P (MAP) Pulse Ox O2 Delivery O2 Flow Rate FiO2 04/11/19 04:00 2.0 04/11/19 04:00 97.9 73 18 134/64 (87) 99 04/11/19 04:00 74 04/11/19 04:00 Nasal Cannula 2.0 04/11/19 00:00 2.0 04/11/19 00:00 Nasal Cannula 2.0 04/11/19 00:00 79 04/11/19 00:00 97.8 73 20 148/76 (100) 100 04/10/19 20:59 105 04/10/19 20:00 Nasal Cannula 2.0 04/10/19 20:00 2.0 04/10/19 20:00 98.6 110 20 149/72 (97) 100 04/10/19 20:00 120 04/10/19 19:54 94 Nasal Cannula 2.0 28 04/10/19 19:30 120 18 93 Nasal Cannula 2.0 28 04/10/19 18:17 130 133/71 04/10/19 18:12 99.0 04/10/19 16:43 100.9 04/10/19 16:00 Nasal Cannula 2.0 04/10/19 16:00 139 04/10/19 16:00 2.0 04/10/19 16:00 101.8 120 20 133/71 (91) 96 04/10/19 12:00 Nasal Cannula 2.0 04/10/19 12:00 117 04/10/19 12:00 2.0 04/10/19 12:00 98.6 116 24 139/66 (90) 94 04/10/19 08:00 Nasal Cannula 2.0 04/10/19 08:00 101 04/10/19 08:00 2.0 04/10/19 08:00 99.3 110 20 129/60 (83) 99 Height (Feet): 5 Height (Inches): 4.00 Weight (Pounds): 126 Objective Gen: NAD HEENT: anicteric sclera CV: RRR Resp: RRR. no wheezes Abd: normoactive Bs+. Soft. no TTP Ext: no LE edema Microbiology Date/Time Source Procedure Growth Status 04/08/19 19:45 Blood Blood Culture - Preliminary NO GROWTH AFTER 48 HOURS Resulted 04/08/19 19:40 Blood Blood Culture - Preliminary NO GROWTH AFTER 48 HOURS Resulted 04/09/19 10:00 Nose - Final Complete 04/09/19 10:00 Nose - Final Complete 04/09/19 10:00 Indwelling Cath Urine Culture - Preliminary NO GROWTH Resulted 04/08/19 19:55 Urine,Clean Catch Urine Culture - Final NO GROWTH AFTER 48 HOURS Complete 04/08/19 20:50 Rectum - Final NO CARBAPENEM-RESISTANT ENTEROBACTERI... Complete 04/08/19 20:50 Rectum VRE Culture - Final NO VANCOMYCIN RESISTANT ENTEROCOCCUS ... Complete Current Medications Medications (Trade) Dose Ordered Sig/Brady Route PRN Reason Start Time Stop Time Status Last Admin Dose Admin Acetaminophen (Tylenol) 650 mg Q4H PRN RECTAL Mild Pain (Pain Scale 1-3) 04/08/19 23:30 05/08/19 23:29 Acetaminophen (Tylenol) 650 mg Q6H PRN ORAL Mild Pain/Temp > 100.5 04/09/19 04:00 05/09/19 03:59 04/10/19 16:01 Albuterol/ Ipratropium (Albuterol/ Ipratropium) 3 ml Q6H PRN HHN Shortness of Breath 04/08/19 23:30 04/13/19 23:29 Azithromycin (Zithromax) 250 mg DAILY ORAL 04/09/19 12:00 04/16/19 11:59 04/10/19 09:25 Dextrose/Sodium Chloride 1,000 ml @ 75 mls/hr [id number] IV 04/10/19 13:28 05/10/19 13:27 04/11/19 02:59 Divalproex Sodium (Depakote Sprinkles) 125 mg EVERY 6 HOURS ORAL 04/10/19 12:00 05/10/19 11:59 04/11/19 05:45 Docusate Sodium (Colace) 100 mg DAILY ORAL 04/10/19 09:00 05/09/19 08:59 04/10/19 09:24 Heparin Sodium (Porcine) (Heparin 5000 units/ml) 5,000 units EVERY 12 HOURS SUBQ 04/09/19 09:30 05/09/19 09:29 04/09/19 09:35 Hydralazine HCl (Apresoline) 25 mg Q6H PRN ORAL For High Blood Pressure 04/09/19 04:00 05/09/19 03:59 Metoprolol Tartrate (Lopressor) 25 mg BID ORAL 04/10/19 18:15 05/10/19 18:14 04/10/19 18:17 Oseltamivir Phosphate (Tamiflu) 30 mg DAILY ORAL 04/09/19 13:00 04/14/19 12:59 04/10/19 09:25 Tramadol HCl (Ultram) 50 mg Q8H PRN ORAL Severe Pain (Pain Scale 7-10) 04/09/19 04:00 04/16/19 03:59 04/10/19 17:19 Tana Steinberg MD Apr 11, 2019 07:53
[2019-04-11 08:00] VITALS: BP 153/62
[2019-04-11] MEDS: Docusate 100mg/10ml Liq ORAL SCH (08:33)
[2019-04-11] MEDS: Azithromycin 250mg tab ORAL SCH (08:33)
[2019-04-11] MEDS: Metoprolol 25mg tab ORAL SCH ×2 (08:33→18:03)
[2019-04-11] MEDS: Heparin 5000 units/ml inj SUBQ SCH ×2 (08:34→21:00)
--- NOTE | 2019-04-11 09:02 | Pulmonology Progress Note ---
Assessment/Plan Assessment/Plan IMPRESSION: 1. Influenza. 2. Hypertension. 3. COPD. 4. Dementia. DISCUSSION: Agree with admission and care. Continue abx. Continue pulmonary hygiene and oxygen. 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 Npw DNR, DNI Subjective Interval Events: None new; now DNI Constitutional: Reports: no symptoms HEENT: Repors: no symptoms Respiratory: Reports: no symptoms Cardiovascular: Reports: no symptoms Gastrointestinal/Abdominal: Reports: no symptoms Allergies: Coded Allergies: PENICILLINS (Verified Allergy, Unknown, 04/08/19) Objective Last 24 Hour Vital Signs Date Time Temp Pulse Resp B/P (MAP) Pulse Ox O2 Delivery O2 Flow Rate FiO2 04/11/19 08:33 77 153/62 04/11/19 08:00 98.1 77 16 153/62 (92) 100 04/11/19 04:00 2.0 04/11/19 04:00 97.9 73 18 134/64 (87) 99 04/11/19 04:00 74 04/11/19 04:00 Nasal Cannula 2.0 04/11/19 00:00 2.0 04/11/19 00:00 Nasal Cannula 2.0 04/11/19 00:00 79 04/11/19 00:00 97.8 73 20 148/76 (100) 100 04/10/19 20:59 105 04/10/19 20:00 Nasal Cannula 2.0 04/10/19 20:00 2.0 04/10/19 20:00 98.6 110 20 149/72 (97) 100 04/10/19 20:00 120 04/10/19 19:54 94 Nasal Cannula 2.0 28 04/10/19 19:30 120 18 93 Nasal Cannula 2.0 28 04/10/19 18:17 130 133/71 04/10/19 18:12 99.0 04/10/19 16:43 100.9 04/10/19 16:00 Nasal Cannula 2.0 04/10/19 16:00 139 04/10/19 16:00 2.0 04/10/19 16:00 101.8 120 20 133/71 (91) 96 04/10/19 12:00 Nasal Cannula 2.0 04/10/19 12:00 117 04/10/19 12:00 2.0 04/10/19 12:00 98.6 116 24 139/66 (90) 94 Intake and Output 04/10/19 04/11/19 19:00 07:00 Intake Total 1860 ml 1020 ml Output Total 400 ml 400 ml Balance 1460 ml 620 ml Intake Oral 800 ml 120 ml IV Total 1060 ml 900 ml Output Urine Total 400 ml 400 ml # Bowel Movements 2 General Appearance: no acute distress HEENT: normocephalic Respiratory/Chest: chest wall non-tender, lungs clear Cardiovascular: normal peripheral pulses Microbiology Date/Time Source Procedure Growth Status 04/08/19 19:45 Blood Blood Culture - Preliminary NO GROWTH AFTER 48 HOURS Resulted 04/08/19 19:40 Blood Blood Culture - Preliminary NO GROWTH AFTER 48 HOURS Resulted 04/09/19 10:00 Nose - Final Complete 04/09/19 10:00 Nose - Final Complete 04/09/19 10:00 Indwelling Cath Urine Culture - Preliminary NO GROWTH AFTER 24 HOURS Resulted 04/08/19 19:55 Urine,Clean Catch Urine Culture - Final NO GROWTH AFTER 48 HOURS Complete 04/08/19 20:50 Rectum - Final NO CARBAPENEM-RESISTANT ENTEROBACTERI... Complete 04/08/19 20:50 Rectum VRE Culture - Final NO VANCOMYCIN RESISTANT ENTEROCOCCUS ... Complete Current Medications Medications (Trade) Dose Ordered Sig/Brady Route PRN Reason Start Time Stop Time Status Last Admin Dose Admin Acetaminophen (Tylenol) 650 mg Q4H PRN RECTAL Mild Pain (Pain Scale 1-3) 04/08/19 23:30 05/08/19 23:29 Acetaminophen (Tylenol) 650 mg Q6H PRN ORAL Mild Pain/Temp > 100.5 04/09/19 04:00 05/09/19 03:59 04/10/19 16:01 Albuterol/ Ipratropium (Albuterol/ Ipratropium) 3 ml Q6H PRN HHN Shortness of Breath 04/08/19 23:30 04/13/19 23:29 Azithromycin (Zithromax) 250 mg DAILY ORAL 04/09/19 12:00 04/16/19 11:59 04/11/19 08:33 Dextrose/Sodium Chloride 1,000 ml @ 75 mls/hr [id number] IV 04/10/19 13:28 05/10/19 13:27 04/11/19 02:59 Divalproex Sodium (Depakote Sprinkles) 125 mg EVERY 6 HOURS ORAL 04/10/19 12:00 05/10/19 11:59 04/11/19 05:45 Docusate Sodium (Colace) 100 mg DAILY ORAL 04/10/19 09:00 05/09/19 08:59 04/11/19 08:33 Heparin Sodium (Porcine) (Heparin 5000 units/ml) 5,000 units EVERY 12 HOURS SUBQ 04/09/19 09:30 05/09/19 09:29 04/09/19 09:35 Hydralazine HCl (Apresoline) 25 mg Q6H PRN ORAL For High Blood Pressure 04/09/19 04:00 05/09/19 03:59 Metoprolol Tartrate (Lopressor) 25 mg BID ORAL 04/10/19 18:15 05/10/19 18:14 04/11/19 08:33 Oseltamivir Phosphate (Tamiflu) 30 mg DAILY ORAL 04/09/19 13:00 04/14/19 12:59 04/11/19 08:33 Tramadol HCl (Ultram) 50 mg Q8H PRN ORAL Severe Pain (Pain Scale 7-10) 04/09/19 04:00 04/16/19 03:59 04/10/19 17:19 Ferny Lawton MD Apr 11, 2019 09:02
--- NOTE | 2019-04-11 09:05 | General Progress Note ---
Assessment/Plan Problem List: (1) Malnutrition ICD Codes: E46 - Unspecified protein-calorie malnutrition SNOMED: 16221554 (2) Confusion ICD Codes: R41.0 - Disorientation, unspecified SNOMED: 844332652 (3) Renal insufficiency ICD Codes: N28.9 - Disorder of kidney and ureter, unspecified SNOMED: 764530939, 602591652 (4) Urinary tract infection ICD Codes: N39.0 - Urinary tract infection, site not specified SNOMED: 26709975 (5) Severe sepsis ICD Codes: A41.9 - Sepsis, unspecified organism; R65.20 - Severe sepsis without septic shock SNOMED: 43985437 Status: unchanged Assessment/Plan: o2 pulm tx abx pt diet eval cbc bmp am ltach eval Subjective Constitutional: Reports: weakness Allergies: Coded Allergies: PENICILLINS (Verified Allergy, Unknown, 04/08/19) All Systems: reviewed and negative except above Subjective o2nc sleepy Objective Last 24 Hour Vital Signs Date Time Temp Pulse Resp B/P (MAP) Pulse Ox O2 Delivery O2 Flow Rate FiO2 04/11/19 08:33 77 153/62 04/11/19 08:00 98.1 77 16 153/62 (92) 100 04/11/19 04:00 2.0 04/11/19 04:00 97.9 73 18 134/64 (87) 99 04/11/19 04:00 74 04/11/19 04:00 Nasal Cannula 2.0 04/11/19 00:00 2.0 04/11/19 00:00 Nasal Cannula 2.0 04/11/19 00:00 79 04/11/19 00:00 97.8 73 20 148/76 (100) 100 04/10/19 20:59 105 04/10/19 20:00 Nasal Cannula 2.0 04/10/19 20:00 2.0 04/10/19 20:00 98.6 110 20 149/72 (97) 100 04/10/19 20:00 120 04/10/19 19:54 94 Nasal Cannula 2.0 28 04/10/19 19:30 120 18 93 Nasal Cannula 2.0 28 04/10/19 18:17 130 133/71 04/10/19 18:12 99.0 04/10/19 16:43 100.9 04/10/19 16:00 Nasal Cannula 2.0 04/10/19 16:00 139 04/10/19 16:00 2.0 04/10/19 16:00 101.8 120 20 133/71 (91) 96 04/10/19 12:00 Nasal Cannula 2.0 04/10/19 12:00 117 04/10/19 12:00 2.0 04/10/19 12:00 98.6 116 24 139/66 (90) 94 Intake and Output 04/10/19 04/11/19 19:00 07:00 Intake Total 1860 ml 1020 ml Output Total 400 ml 400 ml Balance 1460 ml 620 ml Intake Oral 800 ml 120 ml IV Total 1060 ml 900 ml Output Urine Total 400 ml 400 ml # Bowel Movements 2 Height (Feet): 5 Height (Inches): 4.00 Weight (Pounds): 126 General Appearance: lethargic EENT: normal ENT inspection Neck: normal alignment Cardiovascular: normal peripheral pulses, normal rate, regular rhythm Respiratory/Chest: chest wall non-tender, lungs clear, normal breath sounds Abdomen: normal bowel sounds, non tender, soft Extremities: normal inspection Edema: no edema noted Arm (L), no edema noted Arm (R), no edema noted Leg (L), no edema noted Leg (R), no edema noted Pedal (L), no edema noted Pedal (R), no edema noted Generalized Neurologic: motor weakness Skin: normal pigmentation, warm/dry Braydon Mchugh DO Apr 11, 2019 09:05
[2019-04-11 09:30] LABS: HEMATOCRIT 27.7 % (37.0-47.0); HEMOGLOBIN 8.6 G/DL (12.0-16.0); MEAN CORPUSCULAR VOLUME 71 FL (80-99); PLATELET COUNT 98 K/UL (150-450); RED BLOOD COUNT 3.92 M/UL (4.20-5.40); RED CELL DISTRIBUTION WIDTH 16.7 % (11.6-14.8); WHITE BLOOD COUNT 18.4 K/UL (4.8-10.8)
[2019-04-11 09:58] LABS: ANION GAP 7 mmol/L (5-15); BLOOD UREA NITROGEN 39 mg/dL (7-18); CALCIUM 7.5 MG/DL (8.5-10.1); CARBON DIOXIDE 25 MMOL/L (21-32); CHLORIDE 108 MMOL/L (98-107); CREATININE 1.2 MG/DL (0.55-1.30); POTASSIUM 4.3 MMOL/L (3.5-5.1); SODIUM 140 MMOL/L (136-145)
[2019-04-11] MEDS ORDERED: NS 275ml ONE (10:02)
[2019-04-11] MEDS ORDERED: D5 1/2NS 1000ml IV ONE (10:02)
--- NOTE | 2019-04-11 10:45 | Progress Note ---
DATE: 04/11/2019 SUBJECTIVE: This patient is an 84-year-old female patient. The patient still has some confusion, disorganized thought process, and mood lability. That is why, she does require daily psychiatric consultation. DIAGNOSIS: Major depressive disorder, mild, recurrent with psychotic features, rule out dementia with psychosis. PLAN: Treat her with Namenda 5 mg daily. A 20 minutes of reality-based supportive psychotherapy. Chart reviewed. Discussed with staff. Seen and assessed at bedside. A 20 minutes of cognitive behavioral therapy will help identify automatic negative thoughts to convert negative thoughts to more positive thoughts to reduce depression, anxiety, mood lability and also to have a more adaptive behavioral pattern. Chart reviewed. Discussed with staff. Seen and assessed at bedside. Wyatt Payne M.D. DR: CADY JOB#: [id number] CC:
[2019-04-11 12:00] VITALS: BP 136/68
--- NOTE | 2019-04-11 13:49 | Nephrology Progress Note ---
Assessment/Plan Assessment 1. Hypertension. 2. COPD. 3. GERD. 4. Hepatitis C. 5. Dementia. 6. Schizophrenia. 7.positive flu Plan plan continue current iv check vit d nutritional support monitoring renal function avoid NSAID Replace electrolyte as need it Subjective ROS Limited/Unobtainable: Yes Constitutional: Reports: no symptoms HEENT: Reports: no symptoms Genitourinary: Reports: no symptoms Neurologic/Psychiatric: Reports: no symptoms Objective Objective Last 24 Hour Vital Signs Date Time Temp Pulse Resp B/P (MAP) Pulse Ox O2 Delivery O2 Flow Rate FiO2 04/11/19 12:00 Nasal Cannula 2.0 04/11/19 12:00 99.0 88 16 136/68 (90) 98 04/11/19 12:00 86 04/11/19 08:33 77 153/62 04/11/19 08:00 67 04/11/19 08:00 Nasal Cannula 2.0 04/11/19 08:00 98.1 77 16 153/62 (92) 100 04/11/19 04:00 2.0 04/11/19 04:00 97.9 73 18 134/64 (87) 99 04/11/19 04:00 74 04/11/19 04:00 Nasal Cannula 2.0 04/11/19 00:00 2.0 04/11/19 00:00 Nasal Cannula 2.0 04/11/19 00:00 79 04/11/19 00:00 97.8 73 20 148/76 (100) 100 04/10/19 20:59 105 04/10/19 20:00 Nasal Cannula 2.0 04/10/19 20:00 2.0 04/10/19 20:00 98.6 110 20 149/72 (97) 100 04/10/19 20:00 120 04/10/19 19:54 94 Nasal Cannula 2.0 28 04/10/19 19:30 120 18 93 Nasal Cannula 2.0 28 04/10/19 18:17 130 133/71 04/10/19 18:12 99.0 04/10/19 16:43 100.9 04/10/19 16:00 Nasal Cannula 2.0 04/10/19 16:00 139 04/10/19 16:00 2.0 04/10/19 16:00 101.8 120 20 133/71 (91) 96 Intake and Output 04/10/19 04/11/19 18:59 06:59 Intake Total 1925 ml 980 ml Output Total 400 ml 400 ml Balance 1525 ml 580 ml Intake Oral 800 ml 120 ml IV Total 1125 ml 860 ml Output Urine Total 400 ml 400 ml # Bowel Movements 2 Laboratory Tests 04/11/19 08:50: White Blood Count 18.4H, Red Blood Count 3.92L, Hemoglobin 8.6L, Hematocrit 27.7L, Mean Corpuscular Volume 71L, Mean Corpuscular Hemoglobin 22.0L, Mean Corpuscular Hemoglobin Concent 31.1L, Red Cell Distribution Width 16.7H, Platelet Count 98L, Mean Platelet Volume 8.4, Neutrophils (%) (Auto) , Lymphocytes (%) (Auto) , Monocytes (%) (Auto) , Eosinophils (%) (Auto) , Basophils (%) (Auto) , Differential Total Cells Counted 100, Neutrophils % ( Manual) 82H, Lymphocytes % (Manual) 9L, Monocytes % (Manual) 6, Eosinophils % ( Manual) 0, Basophils % (Manual) 0, Band Neutrophils 3, Platelet Estimate DecreasedL, Platelet Morphology Normal, Hypochromasia 1+, Anisocytosis 1+, Microcytosis 1+, Sodium Level 140, Potassium Level 4.3, Chloride Level 108H, Carbon Dioxide Level 25, Anion Gap 7, Blood Urea Nitrogen 39H, Creatinine 1.2, Estimat Glomerular Filtration Rate , Glucose Level 122H, Calcium Level 7.5L Height (Feet): 5 Height (Inches): 4.00 Weight (Pounds): 126 Objective HEAD AND NECK: Bitemporal wasting. Extraocular movement intact. Pupils are reactive to light and accommodation. Very dry mucous membranes. LUNGS: Clear to auscultation. CARDIAC: Regular rate and rhythm. S1 and S2. No murmur. No rub. ABDOMEN: Soft, nontender, and nondistended. EXTREMITIES: A 2+ edema. No clubbing. No cyanosis. Yael Giang MD Apr 11, 2019 13:49
[2019-04-11 16:00] VITALS: BP 152/71
--- NOTE | 2019-04-11 18:33 | Cardiology Progress Note ---
Assessment/Plan Assessment/Plan 1. Sinus tachycardia, resolved, most likely due to sepsis. Continue IV ABx and hydration. 2D echocardiography had shown normal LV systolic function with normal intracardiac filling pressure. 2. Acute kidney injury, most likely prerenal azotemia, continue on IV fluid. 3. History of GI bleeding in the past. 4. History of hypertension. 5. Mild pulmonary hypertension. Subjective Subjective Sinus rhythm at rate of 84, with frequent APCs and VPCs. Objective Last 24 Hour Vital Signs Date Time Temp Pulse Resp B/P (MAP) Pulse Ox O2 Delivery O2 Flow Rate FiO2 04/11/19 18:03 84 152/71 04/11/19 16:39 100.9 04/11/19 16:00 101.8 80 16 152/71 (98) 100 04/11/19 16:00 84 04/11/19 16:00 Nasal Cannula 2.0 04/11/19 12:00 Nasal Cannula 2.0 04/11/19 12:00 99.0 88 16 136/68 (90) 98 04/11/19 12:00 86 04/11/19 08:33 77 153/62 04/11/19 08:00 67 04/11/19 08:00 Nasal Cannula 2.0 04/11/19 08:00 98.1 77 16 153/62 (92) 100 04/11/19 04:00 2.0 04/11/19 04:00 97.9 73 18 134/64 (87) 99 04/11/19 04:00 74 04/11/19 04:00 Nasal Cannula 2.0 04/11/19 00:00 2.0 04/11/19 00:00 Nasal Cannula 2.0 04/11/19 00:00 79 04/11/19 00:00 97.8 73 20 148/76 (100) 100 04/10/19 20:59 105 04/10/19 20:00 Nasal Cannula 2.0 04/10/19 20:00 2.0 04/10/19 20:00 98.6 110 20 149/72 (97) 100 04/10/19 20:00 120 04/10/19 19:54 94 Nasal Cannula 2.0 28 04/10/19 19:30 120 18 93 Nasal Cannula 2.0 28 Intake and Output 04/10/19 04/11/19 19:00 07:00 Intake Total 1860 ml 1020 ml Output Total 400 ml 400 ml Balance 1460 ml 620 ml Intake Oral 800 ml 120 ml IV Total 1060 ml 900 ml Output Urine Total 400 ml 400 ml # Bowel Movements 2 2D Echo: LVEF 55-60%, MIld LVH, Grade LVDD, Mild MR, RVSP 43 mmHg Laboratory Tests Test 04/11/19 08:50 White Blood Count 18.4 K/UL (4.8-10.8) H Red Blood Count 3.92 M/UL (4.20-5.40) L Hemoglobin 8.6 G/DL (12.0-16.0) L Hematocrit 27.7 % (37.0-47.0) L Mean Corpuscular Volume 71 FL (80-99) L Mean Corpuscular Hemoglobin 22.0 PG (27.0-31.0) L Mean Corpuscular Hemoglobin Concent 31.1 G/DL (32.0-36.0) L Red Cell Distribution Width 16.7 % (11.6-14.8) H Platelet Count 98 K/UL (150-450) L Mean Platelet Volume 8.4 FL (6.5-10.1) Neutrophils (%) (Auto) % (45.0-75.0) Lymphocytes (%) (Auto) % (20.0-45.0) Monocytes (%) (Auto) % (1.0-10.0) Eosinophils (%) (Auto) % (0.0-3.0) Basophils (%) (Auto) % (0.0-2.0) Differential Total Cells Counted 100 Neutrophils % (Manual) 82 % (45-75) H Lymphocytes % (Manual) 9 % (20-45) L Monocytes % (Manual) 6 % (1-10) Eosinophils % (Manual) 0 % (0-3) Basophils % (Manual) 0 % (0-2) Band Neutrophils 3 % (0-8) Platelet Estimate Decreased L Platelet Morphology Normal Hypochromasia 1+ Anisocytosis 1+ Microcytosis 1+ Sodium Level 140 MMOL/L (136-145) Potassium Level 4.3 MMOL/L (3.5-5.1) Chloride Level 108 MMOL/L (98-107) H Carbon Dioxide Level 25 MMOL/L (21-32) Anion Gap 7 mmol/L (5-15) Blood Urea Nitrogen 39 mg/dL (7-18) H Creatinine 1.2 MG/DL (0.55-1.30) Estimat Glomerular Filtration Rate mL/min (>60) Glucose Level 122 MG/DL (74-106) H Calcium Level 7.5 MG/DL (8.5-10.1) L Microbiology Date/Time Source Procedure Growth Status 04/08/19 19:45 Blood Blood Culture - Preliminary NO GROWTH AFTER 48 HOURS Resulted 04/08/19 19:40 Blood Blood Culture - Preliminary NO GROWTH AFTER 48 HOURS Resulted 04/09/19 10:00 Nose - Final Complete 04/09/19 10:00 Nose - Final Complete 04/08/19 20:50 Nasal Nares MRSA Culture - Final NO METHICILLIN RESISTANT STAPH AUREUS... Complete 04/09/19 10:00 Indwelling Cath Urine Culture - Preliminary NO GROWTH AFTER 24 HOURS Resulted 04/08/19 19:55 Urine,Clean Catch Urine Culture - Final NO GROWTH AFTER 48 HOURS Complete 04/08/19 20:50 Rectum - Final NO CARBAPENEM-RESISTANT ENTEROBACTERI... Complete 04/08/19 20:50 Rectum VRE Culture - Final NO VANCOMYCIN RESISTANT ENTEROCOCCUS ... Complete Objective HEENT: Atraumatic and normocephalic. Anicteric. Pupils are equal, round, and reactive to light and accommodation. Extraocular muscles intact. NECK: JVP less than 5 cm. No carotid bruit. Carotid upstrokes 2+ bilaterally. CARDIOVASCULAR SYSTEM: Normal S1 and S2. Regular rate and rhythm. No murmurs, gallops, or rubs. LUNGS: Clear to auscultation bilaterally. ABDOMEN: Soft, nontender, and nondistended. No hepatosplenomegaly. Positive bowel sounds. EXTREMITIES: No evidence of edema, clubbing, or cyanosis. Maikel Garrett MD Apr 11, 2019 18:33
[2019-04-11 20:00] VITALS: BP 134/57
[2019-04-12] VITALS: BP 139/65
[2019-04-12 04:00] VITALS: BP 152/54
[2019-04-12 05:11] LABS: HEMATOCRIT 25.7 % (37.0-47.0); HEMOGLOBIN 8.2 G/DL (12.0-16.0); MEAN CORPUSCULAR VOLUME 70 FL (80-99); PLATELET COUNT 88 K/UL (150-450); RED BLOOD COUNT 3.69 M/UL (4.20-5.40); WHITE BLOOD COUNT 13.1 K/UL (4.8-10.8)
[2019-04-12] MEDS: Depakote 125mg Sprinkles ORAL SCH ×4 (05:26→23:53)
[2019-04-12 05:34] LABS: ANION GAP 7 mmol/L (5-15); BLOOD UREA NITROGEN 42 mg/dL (7-18); CALCIUM 8.1 MG/DL (8.5-10.1); CARBON DIOXIDE 25 MMOL/L (21-32); CHLORIDE 108 MMOL/L (98-107); CREATININE 1.2 MG/DL (0.55-1.30); POTASSIUM 4.3 MMOL/L (3.5-5.1); SODIUM 140 MMOL/L (136-145)
[2019-04-12 08:00] VITALS: BP 151/71
--- NOTE | 2019-04-12 08:06 | Infectious Diseases Prog Note ---
Assessment/Plan Assessment/Plan 84yo woman with PMH below [facility] with fever, worsened confusion, refusal to eat, vomiting. Temp 102 at [facility]. Per [facility] staff, pt was vomiting for one day. Pt currently unable to provide history. She states yes to every question. Cannot follow commands. ID consulted for fever. fever, persistent Leukocytosis, improving Lactic acidosis, SP Influenza flu A positive On 2L NC CXR: No definite infiltrate or pulmonary vascular congestion identified. The heart is borderline enlarged. The aorta is mildly enlarged consistent with atherosclerotic vascular disease. The bones are osteopenic. r/o bacteremia 04/08 BCx: ngtd Possible UTI UA 5-10WBC UCx: NG 03/25/19 HIV Abt negative PCN Allergy has tolerated Ceftriaxone and Cefepime in the past per [facility] records Plan: Oseltamivir #/ Levaquin #1 DC Azithromycin #5/5 04/08 SP Vancomycin and Azithromycin #1 f/u bcx f/u ucx elevate HOB, aspiration precaution discussed with RN Thank you for this consult. [facility] will continue to follow the patient with you. Subjective Allergies: Coded Allergies: PENICILLINS (Verified Allergy, Unknown, 04/08/19) Subjective tmax 101.8 2L NC WBC better Objective Vital Signs Last 24 Hour Vital Signs Date Time Temp Pulse Resp B/P (MAP) Pulse Ox O2 Delivery O2 Flow Rate FiO2 04/12/19 07:07 83 18 92 Nasal Cannula 2.0 28 04/12/19 07:07 92 Nasal Cannula 2.0 28 04/12/19 04:00 Nasal Cannula 2.0 04/12/19 04:00 98.2 88 19 152/54 (86) 100 04/12/19 03:28 94 04/12/19 00:00 98.4 100 18 139/65 (89) 100 04/12/19 00:00 Nasal Cannula 2.0 04/12/19 00:00 88 04/11/19 20:00 Nasal Cannula 2.0 04/11/19 20:00 99.3 92 17 134/57 (82) 100 04/11/19 19:53 81 18 99 Nasal Cannula 2.0 28 04/11/19 19:52 99 Nasal Cannula 2.0 28 04/11/19 19:45 83 20 100 Nasal Cannula 4.0 36 81 20 99 11/17/19 19:23 83 04/11/19 18:03 84 152/71 04/11/19 16:39 100.9 04/11/19 16:00 101.8 80 16 152/71 (98) 100 04/11/19 16:00 84 04/11/19 16:00 Nasal Cannula 2.0 04/11/19 12:00 Nasal Cannula 2.0 04/11/19 12:00 99.0 88 16 136/68 (90) 98 04/11/19 12:00 86 04/11/19 08:33 77 153/62 Height (Feet): 5 Height (Inches): 4.00 Weight (Pounds): 126 Objective Gen: NAD HEENT: anicteric sclera CV: RRR Resp: RRR. no wheezes Abd: normoactive Bs+. Soft. no TTP Ext: no LE edema Microbiology Date/Time Source Procedure Growth Status 04/09/19 10:00 Nose - Final Complete 04/09/19 10:00 Nose - Final Complete 04/09/19 10:00 Indwelling Cath Urine Culture - Final NO GROWTH AFTER 48 HOURS Complete Laboratory Tests Test 04/11/19 08:50 04/12/19 03:27 White Blood Count 18.4 K/UL (4.8-10.8) H 13.1 K/UL (4.8-10.8) H Red Blood Count 3.92 M/UL (4.20-5.40) L 3.69 M/UL (4.20-5.40) L Hemoglobin 8.6 G/DL (12.0-16.0) L 8.2 G/DL (12.0-16.0) L Hematocrit 27.7 % (37.0-47.0) L 25.7 % (37.0-47.0) L Mean Corpuscular Volume 71 FL (80-99) L 70 FL (80-99) L Mean Corpuscular Hemoglobin 22.0 PG (27.0-31.0) L 22.2 PG (27.0-31.0) L Mean Corpuscular Hemoglobin Concent 31.1 G/DL (32.0-36.0) L 31.9 G/DL (32.0-36.0) L Red Cell Distribution Width 16.7 % (11.6-14.8) H 14.0 % (11.6-14.8) Platelet Count 98 K/UL (150-450) L 88 K/UL (150-450) L Mean Platelet Volume 8.4 FL (6.5-10.1) 8.3 FL (6.5-10.1) Neutrophils (%) (Auto) % (45.0-75.0) % (45.0-75.0) Lymphocytes (%) (Auto) % (20.0-45.0) % (20.0-45.0) Monocytes (%) (Auto) % (1.0-10.0) % (1.0-10.0) Eosinophils (%) (Auto) % (0.0-3.0) % (0.0-3.0) Basophils (%) (Auto) % (0.0-2.0) % (0.0-2.0) Differential Total Cells Counted 100 Neutrophils % (Manual) 82 % (45-75) H Lymphocytes % (Manual) 9 % (20-45) L Monocytes % (Manual) 6 % (1-10) Eosinophils % (Manual) 0 % (0-3) Basophils % (Manual) 0 % (0-2) Band Neutrophils 3 % (0-8) Platelet Estimate Decreased L Platelet Morphology Normal Hypochromasia 1+ Anisocytosis 1+ Microcytosis 1+ Sodium Level 140 MMOL/L (136-145) 140 MMOL/L (136-145) Potassium Level 4.3 MMOL/L (3.5-5.1) 4.3 MMOL/L (3.5-5.1) Chloride Level 108 MMOL/L (98-107) H 108 MMOL/L (98-107) H Carbon Dioxide Level 25 MMOL/L (21-32) 25 MMOL/L (21-32) Anion Gap 7 mmol/L (5-15) 7 mmol/L (5-15) Blood Urea Nitrogen 39 mg/dL (7-18) H 42 mg/dL (7-18) H Creatinine 1.2 MG/DL (0.55-1.30) 1.2 MG/DL (0.55-1.30) Estimat Glomerular Filtration Rate mL/min (>60) mL/min (>60) Glucose Level 122 MG/DL (74-106) H 108 MG/DL (74-106) H Calcium Level 7.5 MG/DL (8.5-10.1) L 8.1 MG/DL (8.5-10.1) L Current Medications Medications (Trade) Dose Ordered Sig/Brady Route PRN Reason Start Time Stop Time Status Last Admin Dose Admin Acetaminophen (Tylenol) 650 mg Q4H PRN RECTAL Mild Pain (Pain Scale 1-3) 04/08/19 23:30 05/08/19 23:29 Acetaminophen (Tylenol) 650 mg Q6H PRN ORAL Mild Pain/Temp > 100.5 04/09/19 04:00 05/09/19 03:59 04/11/19 16:09 Albuterol/ Ipratropium (Albuterol/ Ipratropium) 3 ml Q6H PRN HHN Shortness of Breath 04/08/19 23:30 04/13/19 23:29 04/11/19 19:45 Azithromycin (Zithromax) 250 mg DAILY ORAL 04/09/19 12:00 04/16/19 11:59 04/11/19 08:33 Dextrose/Sodium Chloride 1,000 ml @ 75 mls/hr [id number] IV 04/10/19 13:28 05/10/19 13:27 04/11/19 23:41 Divalproex Sodium (Depakote Sprinkles) 125 mg EVERY 6 HOURS ORAL 04/10/19 12:00 05/10/19 11:59 04/12/19 05:26 Docusate Sodium (Colace) 100 mg DAILY ORAL 04/10/19 09:00 05/09/19 08:59 04/11/19 08:33 Heparin Sodium (Porcine) (Heparin 5000 units/ml) 5,000 units EVERY 12 HOURS SUBQ 04/09/19 09:30 05/09/19 09:29 04/09/19 09:35 Hydralazine HCl (Apresoline) 25 mg Q6H PRN ORAL For High Blood Pressure 04/09/19 04:00 05/09/19 03:59 Metoprolol Tartrate (Lopressor) 25 mg BID ORAL 04/10/19 18:15 05/10/19 18:14 04/11/19 18:03 Oseltamivir Phosphate (Tamiflu) 30 mg DAILY ORAL 04/09/19 13:00 04/14/19 12:59 04/11/19 08:33 Tramadol HCl (Ultram) 50 mg Q8H PRN ORAL Severe Pain (Pain Scale 7-10) 04/09/19 04:00 04/16/19 03:59 04/10/19 17:19 Tana Steinberg MD Apr 12, 2019 08:05
--- NOTE | 2019-04-12 08:33 | Nephrology Progress Note ---
Assessment/Plan Assessment 1. Hypertension. 2. COPD. 3. GERD. 4. Hepatitis C. 5. Dementia. 6. Schizophrenia. Plan plan continue current iv check vit d nutritional support monitoring renal function avoid NSAID Replace electrolyte as need it Subjective Constitutional: Reports: no symptoms HEENT: Reports: no symptoms Genitourinary: Reports: no symptoms Neurologic/Psychiatric: Reports: no symptoms Objective Objective Last 24 Hour Vital Signs Date Time Temp Pulse Resp B/P (MAP) Pulse Ox O2 Delivery O2 Flow Rate FiO2 04/12/19 07:07 83 18 92 Nasal Cannula 2.0 28 04/12/19 07:07 92 Nasal Cannula 2.0 28 04/12/19 04:00 Nasal Cannula 2.0 04/12/19 04:00 98.2 88 19 152/54 (86) 100 04/12/19 03:28 94 04/12/19 00:00 98.4 100 18 139/65 (89) 100 04/12/19 00:00 Nasal Cannula 2.0 04/12/19 00:00 88 04/11/19 20:00 Nasal Cannula 2.0 04/11/19 20:00 99.3 92 17 134/57 (82) 100 04/11/19 19:53 81 18 99 Nasal Cannula 2.0 28 04/11/19 19:52 99 Nasal Cannula 2.0 28 04/11/19 19:45 83 20 100 Nasal Cannula 4.0 36 81 20 99 04/11/19 19:23 83 04/11/19 18:03 84 152/71 04/11/19 16:39 100.9 04/11/19 16:00 101.8 80 16 152/71 (98) 100 04/11/19 16:00 84 04/11/19 16:00 Nasal Cannula 2.0 04/11/19 12:00 Nasal Cannula 2.0 04/11/19 12:00 99.0 88 16 136/68 (90) 98 04/11/19 12:00 86 04/11/19 08:33 77 153/62 Intake and Output 04/11/19 04/12/19 19:00 07:00 Intake Total 1400 ml 675 ml Output Total 500 ml 400 ml Balance 900 ml 275 ml Intake Oral 800 ml IV Total 600 ml 675 ml Output Urine Total 500 ml 400 ml Laboratory Tests 04/11/19 08:50: White Blood Count 18.4H, Red Blood Count 3.92L, Hemoglobin 8.6L, Hematocrit 27.7L, Mean Corpuscular Volume 71L, Mean Corpuscular Hemoglobin 22.0L, Mean Corpuscular Hemoglobin Concent 31.1L, Red Cell Distribution Width 16.7H, Platelet Count 98L, Mean Platelet Volume 8.4, Neutrophils (%) (Auto) , Lymphocytes (%) (Auto) , Monocytes (%) (Auto) , Eosinophils (%) (Auto) , Basophils (%) (Auto) , Differential Total Cells Counted 100, Neutrophils % ( Manual) 82H, Lymphocytes % (Manual) 9L, Monocytes % (Manual) 6, Eosinophils % ( Manual) 0, Basophils % (Manual) 0, Band Neutrophils 3, Platelet Estimate DecreasedL, Platelet Morphology Normal, Hypochromasia 1+, Anisocytosis 1+, Microcytosis 1+, Sodium Level 140, Potassium Level 4.3, Chloride Level 108H, Carbon Dioxide Level 25, Anion Gap 7, Blood Urea Nitrogen 39H, Creatinine 1.2, Estimat Glomerular Filtration Rate , Glucose Level 122H, Calcium Level 7.5L 04/12/19 03:27: White Blood Count 13.1H, Red Blood Count 3.69L, Hemoglobin 8.2L, Hematocrit 25.7L, Mean Corpuscular Volume 70L, Mean Corpuscular Hemoglobin 22.2L, Mean Corpuscular Hemoglobin Concent 31.9L, Red Cell Distribution Width 14.0, Platelet Count 88L, Mean Platelet Volume 8.3, Neutrophils (%) (Auto) , Lymphocytes (%) (Auto) , Monocytes (%) (Auto) , Eosinophils (%) (Auto) , Basophils (%) (Auto) , Sodium Level 140, Potassium Level 4.3, Chloride Level 108H, Carbon Dioxide Level 25, Anion Gap 7, Blood Urea Nitrogen 42H, Creatinine 1.2, Estimat Glomerular Filtration Rate , Glucose Level 108H, Calcium Level 8.1L Height (Feet): 5 Height (Inches): 4.00 Weight (Pounds): 126 Objective HEAD AND NECK: Bitemporal wasting. Extraocular movement intact. Pupils are reactive to light and accommodation. Very dry mucous membranes. LUNGS: Clear to auscultation. CARDIAC: Regular rate and rhythm. S1 and S2. No murmur. No rub. ABDOMEN: Soft, nontender, and nondistended. EXTREMITIES: A 2+ edema. No clubbing. No cyanosis. Yael Giang MD Apr 12, 2019 08:33
[2019-04-12] MEDS: Heparin 5000 units/ml inj SUBQ SCH ×2 (09:00→20:26)
--- NOTE | 2019-04-12 09:44 | General Progress Note ---
Assessment/Plan Problem List: (1) Malnutrition ICD Codes: E46 - Unspecified protein-calorie malnutrition SNOMED: 92600178 (2) Confusion ICD Codes: R41.0 - Disorientation, unspecified SNOMED: 378486948 (3) Renal insufficiency ICD Codes: N28.9 - Disorder of kidney and ureter, unspecified SNOMED: 703764096, 989043640 (4) Urinary tract infection ICD Codes: N39.0 - Urinary tract infection, site not specified SNOMED: 03683622 (5) Severe sepsis ICD Codes: A41.9 - Sepsis, unspecified organism; R65.20 - Severe sepsis without septic shock SNOMED: 34244205 Status: unchanged Assessment/Plan: o2 pulm tx abx pt diet eval cbc bmp am ltach eval Subjective Constitutional: Reports: weakness Allergies: Coded Allergies: PENICILLINS (Verified Allergy, Unknown, 04/08/19) All Systems: reviewed and negative except above Subjective o2nc sleepy Objective Last 24 Hour Vital Signs Date Time Temp Pulse Resp B/P (MAP) Pulse Ox O2 Delivery O2 Flow Rate FiO2 04/12/19 08:00 98.2 92 20 151/71 (97) 97 04/12/19 07:07 83 18 92 Nasal Cannula 2.0 28 04/12/19 07:07 92 Nasal Cannula 2.0 28 04/12/19 04:00 Nasal Cannula 2.0 04/12/19 04:00 98.2 88 19 152/54 (86) 100 04/12/19 03:28 94 04/12/19 00:00 98.4 100 18 139/65 (89) 100 04/12/19 00:00 Nasal Cannula 2.0 04/12/19 00:00 88 04/11/19 20:00 Nasal Cannula 2.0 04/11/19 20:00 99.3 92 17 134/57 (82) 100 04/11/19 19:53 81 18 99 Nasal Cannula 2.0 28 04/11/19 19:52 99 Nasal Cannula 2.0 28 04/11/19 19:45 83 20 100 Nasal Cannula 4.0 36 81 20 99 04/11/19 19:23 83 04/11/19 18:03 84 152/71 04/11/19 16:39 100.9 04/11/19 16:00 101.8 80 16 152/71 (98) 100 04/11/19 16:00 84 04/11/19 16:00 Nasal Cannula 2.0 04/11/19 12:00 Nasal Cannula 2.0 04/11/19 12:00 99.0 88 16 136/68 (90) 98 04/11/19 12:00 86 Intake and Output 04/11/19 04/12/19 19:00 07:00 Intake Total 1400 ml 675 ml Output Total 500 ml 400 ml Balance 900 ml 275 ml Intake Oral 800 ml IV Total 600 ml 675 ml Output Urine Total 500 ml 400 ml Laboratory Tests 04/12/19 03:27: White Blood Count 13.1H, Red Blood Count 3.69L, Hemoglobin 8.2L, Hematocrit 25.7L, Mean Corpuscular Volume 70L, Mean Corpuscular Hemoglobin 22.2L, Mean Corpuscular Hemoglobin Concent 31.9L, Red Cell Distribution Width 14.0, Platelet Count 88L, Mean Platelet Volume 8.3, Neutrophils (%) (Auto) , Lymphocytes (%) (Auto) , Monocytes (%) (Auto) , Eosinophils (%) (Auto) , Basophils (%) (Auto) , Sodium Level 140, Potassium Level 4.3, Chloride Level 108H, Carbon Dioxide Level 25, Anion Gap 7, Blood Urea Nitrogen 42H, Creatinine 1.2, Estimat Glomerular Filtration Rate , Glucose Level 108H, Calcium Level 8.1L Height (Feet): 5 Height (Inches): 4.00 Weight (Pounds): 126 General Appearance: lethargic EENT: normal ENT inspection Neck: normal alignment Cardiovascular: normal peripheral pulses, normal rate, regular rhythm Respiratory/Chest: chest wall non-tender, lungs clear, normal breath sounds Abdomen: normal bowel sounds, non tender, soft Extremities: normal inspection Edema: no edema noted Arm (L), no edema noted Arm (R), no edema noted Leg (L), no edema noted Leg (R), no edema noted Pedal (L), no edema noted Pedal (R), no edema noted Generalized Neurologic: motor weakness Skin: normal pigmentation, warm/dry Braydon Mchugh DO Apr 12, 2019 09:44
[2019-04-12] MEDS: Docusate 100mg/10ml Liq ORAL SCH (09:47)
[2019-04-12] MEDS: Metoprolol 25mg tab ORAL SCH ×2 (09:47→17:10)
[2019-04-12] MEDS ORDERED: Cefepime HCl 2 GM in D5W 55 ML IVPB SCH (10:00)
--- NOTE | 2019-04-12 10:12 | Diagnostic Imaging Report ---
Indication: Acute renal failure, hematuria, urinary tract infection Technique: Grayscale and duplex images of the kidneys, retroperitoneum, and bladder were obtained. Comparison: none Findings: Right kidney measures 10.7 cm in length. Left kidney measures 9.3 cm in length. Both kidneys demonstrate normal echogenicity. No hydronephrosis. There are multiple cysts bilaterally.. Normal inferior vena cava. Bladder is empty, contains a Hansen catheter. The gallbladder demonstrates sludge, stones, and wall thickening. There is a small amount of free fluid in Morison's pouch. 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 Wall thickening of the gallbladder could indicate acute cholecystitis, but is more likely related to the derangements causing the free intraperitoneal fluid and perisplenic varices.
--- NOTE | 2019-04-12 11:30 | Progress Note ---
DATE: 04/12/2019 SUBJECTIVE: This is an 84-year-old female patient with confusion, disorganized thought process, and mood lability. Cognition has declined below baseline. That is why, her attending physician has requested daily psychiatric consultation, but she also has sepsis and respiratory insufficiency. MENTAL STATUS EXAMINATION: This is an 84-year-old female. Appearance is disheveled. Attitude, irritable and agitated. Affect, guarded and restricted. Intellect poor. Mood, depressed and anxious. Motor activity, psychomotor agitation. Insight and judgment is poor. DIAGNOSIS: Major depressive disorder, mild, recurrent with psychotic features, rule out dementia with psychosis. PLAN: A 20 minutes of reality-based supportive psychotherapy. A 20 minutes of cognitive behavioral therapy to help identify automatic negative thoughts and help her convert negative thoughts to more positive thoughts to reduce depression, anxiety, mood lability. Also treat this patient with a medication regimen of Namenda 5 mg daily to prevent any further decline in her cognition and Depakote Sprinkle 125 mg every six hours. She will continue to be followed by Psychiatry throughout hospital course. Chart reviewed. Discussed with staff. Seen and assessed in her room. Wyatt Payne M.D. DR: CADY JOB#: [id number] CC:
[2019-04-12 12:00] VITALS: BP 141/62
--- NOTE | 2019-04-12 12:04 | Diagnostic Imaging Report ---
Indication: Shortness of breath, cough Technique: One view of the chest Comparison: 04/08/2019 Findings: Suboptimal inspiration currently. There may be some retrocardiac consolidation. There may be a small amount of pleural fluid on the left. The remainder the lungs and pleural spaces are grossly clear. The heart size is upper limits of normal. There are degenerative changes of both shoulders noted. Impression: Hypoventilatory exam Possible retrocardiac consolidation Possible left pleural effusion
--- NOTE | 2019-04-12 12:13 | Pulmonology Progress Note ---
Assessment/Plan Assessment/Plan IMPRESSION: 1. Influenza. 2. Hypertension. 3. COPD. 4. Dementia. DISCUSSION: Agree with admission and care. Continue abx. Continue pulmonary hygiene and oxygen. 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 Now DNR, DNI Subjective Interval Events: None new reported Constitutional: Reports: no symptoms HEENT: Repors: no symptoms Respiratory: Reports: no symptoms Cardiovascular: Reports: no symptoms Gastrointestinal/Abdominal: Reports: no symptoms Allergies: Coded Allergies: PENICILLINS (Verified Allergy, Unknown, 04/08/19) Objective Last 24 Hour Vital Signs Date Time Temp Pulse Resp B/P (MAP) Pulse Ox O2 Delivery O2 Flow Rate FiO2 04/12/19 09:47 92 151/71 04/12/19 08:00 98.2 92 20 151/71 (97) 97 04/12/19 08:00 Nasal Cannula 2.0 04/12/19 08:00 91 04/12/19 07:07 83 18 92 Nasal Cannula 2.0 28 04/12/19 07:07 92 Nasal Cannula 2.0 28 04/12/19 04:00 Nasal Cannula 2.0 04/12/19 04:00 98.2 88 19 152/54 (86) 100 04/12/19 03:28 94 04/12/19 00:00 98.4 100 18 139/65 (89) 100 04/12/19 00:00 Nasal Cannula 2.0 04/12/19 00:00 88 04/11/19 20:00 Nasal Cannula 2.0 04/11/19 20:00 99.3 92 17 134/57 (82) 100 04/11/19 19:53 81 18 99 Nasal Cannula 2.0 28 04/11/19 19:52 99 Nasal Cannula 2.0 28 04/11/19 19:45 83 20 100 Nasal Cannula 4.0 36 81 20 99 04/11/19 19:23 83 04/11/19 18:03 84 152/71 04/11/19 16:39 100.9 04/11/19 16:00 101.8 80 16 152/71 (98) 100 04/11/19 16:00 84 04/11/19 16:00 Nasal Cannula 2.0 Intake and Output 04/11/19 04/12/19 19:00 07:00 Intake Total 1400 ml 675 ml Output Total 500 ml 400 ml Balance 900 ml 275 ml Intake Oral 800 ml IV Total 600 ml 675 ml Output Urine Total 500 ml 400 ml General Appearance: no acute distress HEENT: normocephalic Respiratory/Chest: chest wall non-tender, lungs clear Cardiovascular: normal peripheral pulses, normal rate Abdomen: normal bowel sounds Laboratory Tests 04/12/19 03:27: White Blood Count 13.1H, Red Blood Count 3.69L, Hemoglobin 8.2L, Hematocrit 25.7L, Mean Corpuscular Volume 70L, Mean Corpuscular Hemoglobin 22.2L, Mean Corpuscular Hemoglobin Concent 31.9L, Red Cell Distribution Width 14.0, Platelet Count 88L, Mean Platelet Volume 8.3, Neutrophils (%) (Auto) , Lymphocytes (%) (Auto) , Monocytes (%) (Auto) , Eosinophils (%) (Auto) , Basophils (%) (Auto) , Sodium Level 140, Potassium Level 4.3, Chloride Level 108H, Carbon Dioxide Level 25, Anion Gap 7, Blood Urea Nitrogen 42H, Creatinine 1.2, Estimat Glomerular Filtration Rate , Glucose Level 108H, Calcium Level 8.1L Current Medications Medications (Trade) Dose Ordered Sig/Brady Route PRN Reason Start Time Stop Time Status Last Admin Dose Admin Acetaminophen (Tylenol) 650 mg Q4H PRN RECTAL Mild Pain (Pain Scale 1-3) 04/08/19 23:30 05/08/19 23:29 Acetaminophen (Tylenol) 650 mg Q6H PRN ORAL Mild Pain/Temp > 100.5 04/09/19 04:00 05/09/19 03:59 04/11/19 16:09 Albuterol/ Ipratropium (Albuterol/ Ipratropium) 3 ml Q6H PRN HHN Shortness of Breath 04/08/19 23:30 04/13/19 23:29 04/11/19 19:45 Dextrose/Sodium Chloride 1,000 ml @ 75 mls/hr [id number] IV 04/10/19 13:28 05/10/19 13:27 04/11/19 23:41 Divalproex Sodium (Depakote Sprinkles) 125 mg EVERY 6 HOURS ORAL 04/10/19 12:00 05/10/19 11:59 04/12/19 05:26 Docusate Sodium (Colace) 100 mg DAILY ORAL 04/10/19 09:00 05/09/19 08:59 04/12/19 09:47 Heparin Sodium (Porcine) (Heparin 5000 units/ml) 5,000 units EVERY 12 HOURS SUBQ 04/09/19 09:30 05/09/19 09:29 04/09/19 09:35 Hydralazine HCl (Apresoline) 25 mg Q6H PRN ORAL For High Blood Pressure 04/09/19 04:00 05/09/19 03:59 Levofloxacin (Levaquin) 250 mg DAILY ORAL 04/14/19 09:00 04/21/19 08:59 Levofloxacin (Levaquin) 500 mg ONCE ORAL 04/13/19 09:00 04/20/19 08:59 Metoprolol Tartrate (Lopressor) 25 mg BID ORAL 04/10/19 18:15 05/10/19 18:14 04/12/19 09:47 Oseltamivir Phosphate (Tamiflu) 30 mg DAILY ORAL 04/09/19 13:00 04/14/19 12:59 04/12/19 09:47 Tramadol HCl (Ultram) 50 mg Q8H PRN ORAL Severe Pain (Pain Scale 7-10) 04/09/19 04:00 04/16/19 03:59 04/10/19 17:19 Ferny Lawton MD Apr 12, 2019 12:13
[2019-04-12] MEDS ORDERED: Levofloxacin 500mg tab ORAL SCH (15:00)
[2019-04-12 16:00] VITALS: BP 146/66
[2019-04-12] MEDS: D5 1/2NS 1,000 ML IV SCH (19:16)
[2019-04-12 20:00] VITALS: BP 158/71
[2019-04-12] MEDS ORDERED: HydrALAZINE 25mg tab ORAL PRN (22:15)
--- NOTE | 2019-04-12 23:12 | Cardiology Progress Note ---
Assessment/Plan Assessment/Plan 1. Sinus tachycardia, resolved, most likely due to sepsis. Continue IV ABx and hydration. 2D echocardiography had shown normal LV systolic function with normal intracardiac filling pressure. 2. Acute kidney injury, most likely prerenal azotemia, continue on IV fluid. 3. History of GI bleeding in the past. 4. History of hypertension. 5. Mild pulmonary hypertension. Subjective Subjective Sinus rhythm at rate of 86, with frequent APCs and VPCs. Objective Last 24 Hour Vital Signs Date Time Temp Pulse Resp B/P (MAP) Pulse Ox O2 Delivery O2 Flow Rate FiO2 04/12/19 20:00 98.2 86 18 158/71 (100) 99 04/12/19 20:00 Nasal Cannula 2.0 04/12/19 19:18 95 18 98 Nasal Cannula 2.0 28 04/12/19 19:18 98 Nasal Cannula 2.0 28 04/12/19 19:01 99 04/12/19 17:10 89 146/66 04/12/19 16:00 Nasal Cannula 2.0 04/12/19 16:00 98.8 89 19 146/66 (92) 100 04/12/19 16:00 85 04/12/19 12:00 98.2 82 19 141/62 (88) 100 04/12/19 12:00 78 04/12/19 12:00 Nasal Cannula 2.0 04/12/19 09:47 92 151/71 04/12/19 08:00 98.2 92 20 151/71 (97) 97 04/12/19 08:00 Nasal Cannula 2.0 04/12/19 08:00 91 04/12/19 07:07 83 18 92 Nasal Cannula 2.0 28 04/12/19 07:07 92 Nasal Cannula 2.0 28 04/12/19 04:00 Nasal Cannula 2.0 04/12/19 04:00 98.2 88 19 152/54 (86) 100 04/12/19 03:28 94 04/12/19 00:00 98.4 100 18 139/65 (89) 100 04/12/19 00:00 Nasal Cannula 2.0 04/12/19 00:00 88 Intake and Output 04/11/19 04/12/19 19:00 07:00 Intake Total 1400 ml 675 ml Output Total 500 ml 400 ml Balance 900 ml 275 ml Intake Oral 800 ml IV Total 600 ml 675 ml Output Urine Total 500 ml 400 ml 2D Echo: LVEF 55-60%, MIld LVH, Grade LVDD, Mild MR, RVSP 43 mmHg Laboratory Tests Test 04/12/19 03:27 White Blood Count 13.1 K/UL (4.8-10.8) H Red Blood Count 3.69 M/UL (4.20-5.40) L Hemoglobin 8.2 G/DL (12.0-16.0) L Hematocrit 25.7 % (37.0-47.0) L Mean Corpuscular Volume 70 FL (80-99) L Mean Corpuscular Hemoglobin 22.2 PG (27.0-31.0) L Mean Corpuscular Hemoglobin Concent 31.9 G/DL (32.0-36.0) L Red Cell Distribution Width 14.0 % (11.6-14.8) Platelet Count 88 K/UL (150-450) L Mean Platelet Volume 8.3 FL (6.5-10.1) Neutrophils (%) (Auto) % (45.0-75.0) Lymphocytes (%) (Auto) % (20.0-45.0) Monocytes (%) (Auto) % (1.0-10.0) Eosinophils (%) (Auto) % (0.0-3.0) Basophils (%) (Auto) % (0.0-2.0) Sodium Level 140 MMOL/L (136-145) Potassium Level 4.3 MMOL/L (3.5-5.1) Chloride Level 108 MMOL/L (98-107) H Carbon Dioxide Level 25 MMOL/L (21-32) Anion Gap 7 mmol/L (5-15) Blood Urea Nitrogen 42 mg/dL (7-18) H Creatinine 1.2 MG/DL (0.55-1.30) Estimat Glomerular Filtration Rate mL/min (>60) Glucose Level 108 MG/DL (74-106) H Calcium Level 8.1 MG/DL (8.5-10.1) L Objective HEENT: Atraumatic and normocephalic. Anicteric. Pupils are equal, round, and reactive to light and accommodation. Extraocular muscles intact. NECK: JVP less than 5 cm. No carotid bruit. Carotid upstrokes 2+ bilaterally. CARDIOVASCULAR SYSTEM: Normal S1 and S2. Regular rate and rhythm. No murmurs, gallops, or rubs. LUNGS: Clear to auscultation bilaterally. ABDOMEN: Soft, nontender, and nondistended. No hepatosplenomegaly. Positive bowel sounds. EXTREMITIES: No evidence of edema, clubbing, or cyanosis. Maikel Garrett MD Apr 12, 2019 23:12
[2019-04-12] MEDS: HydrALAZINE 25mg tab ORAL PRN (23:53)
[2019-04-13] VITALS: BP 159/70
[2019-04-13 04:00] VITALS: BP 148/76
[2019-04-13 04:36] LABS: HEMATOCRIT 22.9 % (37.0-47.0); HEMOGLOBIN 7.2 G/DL (12.0-16.0); MEAN CORPUSCULAR VOLUME 70 FL (80-99); PLATELET COUNT 74 K/UL (150-450); RED BLOOD COUNT 3.28 M/UL (4.20-5.40); RED CELL DISTRIBUTION WIDTH 14.2 % (11.6-14.8); WHITE BLOOD COUNT 10.5 K/UL (4.8-10.8)
[2019-04-13 04:55] LABS: ANION GAP 6 mmol/L (5-15); BLOOD UREA NITROGEN 34 mg/dL (7-18); CALCIUM 7.8 MG/DL (8.5-10.1); CARBON DIOXIDE 26 MMOL/L (21-32); CHLORIDE 110 MMOL/L (98-107); CREATININE 1.1 MG/DL (0.55-1.30); POTASSIUM 4.5 MMOL/L (3.5-5.1); SODIUM 141 MMOL/L (136-145)
[2019-04-13] MEDS: Depakote 125mg Sprinkles ORAL SCH ×3 (05:23→17:42)
[2019-04-13 08:00] VITALS: BP 154/65
[2019-04-13] MEDS: Heparin 5000 units/ml inj SUBQ SCH ×2 (09:00→21:00)
[2019-04-13] MEDS: D5 1/2NS 1,000 ML IV SCH ×2 (09:44→21:48)
[2019-04-13] MEDS: Docusate 100mg/10ml Liq ORAL SCH (09:45)
[2019-04-13] MEDS: Metoprolol 25mg tab ORAL SCH ×2 (09:45→17:41)
--- NOTE | 2019-04-13 10:19 | Pulmonology Progress Note ---
Assessment/Plan Assessment/Plan IMPRESSION: 1. Influenza. 2. Hypertension. 3. COPD. 4. Dementia. DISCUSSION: Continue abx. Continue pulmonary hygiene and oxygen. I will follow as scratcher. Now DNR, DNI Subjective Interval Events: None new Constitutional: Reports: no symptoms HEENT: Repors: no symptoms Respiratory: Reports: no symptoms Cardiovascular: Reports: no symptoms Allergies: Coded Allergies: PENICILLINS (Verified Allergy, Unknown, 04/08/19) Objective Last 24 Hour Vital Signs Date Time Temp Pulse Resp B/P (MAP) Pulse Ox O2 Delivery O2 Flow Rate FiO2 04/13/19 09:45 96 154/85 04/13/19 08:00 97.7 96 20 154/65 (94) 100 04/13/19 08:00 Nasal Cannula 2.0 04/13/19 04:00 Nasal Cannula 2.0 04/13/19 04:00 97.7 89 20 148/76 (100) 98 04/13/19 03:48 98 04/13/19 00:00 98.0 86 18 159/70 (99) 100 04/13/19 00:00 Nasal Cannula 2.0 04/12/19 23:53 158/71 04/12/19 23:24 95 04/12/19 20:00 98.2 86 18 158/71 (100) 99 04/12/19 20:00 Nasal Cannula 2.0 04/12/19 19:18 95 18 98 Nasal Cannula 2.0 28 04/12/19 19:18 98 Nasal Cannula 2.0 28 04/12/19 19:01 99 04/12/19 17:10 89 146/66 04/12/19 16:00 Nasal Cannula 2.0 04/12/19 16:00 98.8 89 19 146/66 (92) 100 04/12/19 16:00 85 04/12/19 12:00 98.2 82 19 141/62 (88) 100 04/12/19 12:00 78 04/12/19 12:00 Nasal Cannula 2.0 Intake and Output 04/12/19 04/13/19 19:00 07:00 Intake Total 500 ml 880 ml Output Total 550 ml 450 ml Balance -50 ml 430 ml Intake Oral 500 ml IV Total 880 ml Output Urine Total 550 ml 450 ml # Bowel Movements 1 General Appearance: no acute distress HEENT: normocephalic Respiratory/Chest: chest wall non-tender, lungs clear Cardiovascular: normal peripheral pulses Laboratory Tests 04/13/19 03:37: White Blood Count 10.5, Red Blood Count 3.28L, Hemoglobin 7.2L, Hematocrit 22.9L , Mean Corpuscular Volume 70L, Mean Corpuscular Hemoglobin 22.0L, Mean Corpuscular Hemoglobin Concent 31.6L, Red Cell Distribution Width 14.2, Platelet Count 74L, Mean Platelet Volume 6.5, Neutrophils (%) (Auto) , Lymphocytes (%) (Auto) , Monocytes (%) (Auto) , Eosinophils (%) (Auto) , Basophils (%) (Auto) , Differential Total Cells Counted 100, Neutrophils % ( Manual) 69, Lymphocytes % (Manual) 20, Monocytes % (Manual) 10, Eosinophils % ( Manual) 1, Basophils % (Manual) 0, Band Neutrophils 0, Platelet Estimate DecreasedL, Platelet Morphology Normal, Hypochromasia 2+, Anisocytosis 1+, Microcytosis 1+, Sodium Level 141, Potassium Level 4.5, Chloride Level 110H, Carbon Dioxide Level 26, Anion Gap 6, Blood Urea Nitrogen 34H, Creatinine 1.1, Estimat Glomerular Filtration Rate , Glucose Level 98, Calcium Level 7.8L, Valproic Acid (Depakene) Level 36L Current Medications Medications (Trade) Dose Ordered Sig/Brady Route PRN Reason Start Time Stop Time Status Last Admin Dose Admin Acetaminophen (Tylenol) 650 mg Q4H PRN RECTAL Mild Pain (Pain Scale 1-3) 04/08/19 23:30 05/08/19 23:29 Acetaminophen (Tylenol) 650 mg Q6H PRN ORAL Mild Pain/Temp > 100.5 04/09/19 04:00 05/09/19 03:59 04/11/19 16:09 Albuterol/ Ipratropium (Albuterol/ Ipratropium) 3 ml Q6H PRN HHN Shortness of Breath 04/08/19 23:30 04/13/19 23:29 04/11/19 19:45 Dextrose/Sodium Chloride 1,000 ml @ 75 mls/hr [id number] IV 04/10/19 13:28 05/10/19 13:27 04/13/19 09:44 Divalproex Sodium (Depakote Sprinkles) 125 mg EVERY 6 HOURS ORAL 04/10/19 12:00 05/10/19 11:59 04/13/19 05:23 Docusate Sodium (Colace) 100 mg DAILY ORAL 04/10/19 09:00 05/09/19 08:59 04/13/19 09:45 Heparin Sodium (Porcine) (Heparin 5000 units/ml) 5,000 units EVERY 12 HOURS SUBQ 04/09/19 09:30 05/09/19 09:29 04/09/19 09:35 Hydralazine HCl (Apresoline) 25 mg Q6H PRN ORAL For High Blood Pressure 04/09/19 04:00 05/09/19 03:59 04/12/19 23:53 Hydralazine HCl (Apresoline) 25 mg Q6H PRN ORAL For High Blood Pressure 04/12/19 22:15 05/12/19 22:14 Levofloxacin 50 ml @ 50 mls/hr DAILY IVPB 04/13/19 09:00 04/20/19 08:59 04/13/19 09:50 Metoprolol Tartrate (Lopressor) 25 mg BID ORAL 04/10/19 18:15 05/10/19 18:14 04/13/19 09:45 Oseltamivir Phosphate (Tamiflu) 30 mg BID ORAL 04/13/19 09:00 04/18/19 23:59 04/13/19 09:44 Tramadol HCl (Ultram) 50 mg Q8H PRN ORAL Severe Pain (Pain Scale 7-10) 04/09/19 04:00 04/16/19 03:59 04/10/19 17:19 Ferny Lawton MD Apr 13, 2019 10:19
--- NOTE | 2019-04-13 11:45 | Progress Note ---
DATE: 04/13/2019 SUBJECTIVE: This is an 84-year-old female patient. The patient was admitted to the hospital sepsis, urinary tract infection. She also has decline in cognition below her baseline. She still has confusion, disorganized thought process, and that is why her attending physician has requested daily psychiatric consultation. She also has respiratory insufficiency. MENTAL STATUS EXAMINATION: This is an 84-year-old female. Appearance is disheveled. Attitude, irritable and agitated. Affect, guarded and restricted. Intellect poor. Mood, depressed and anxious. Motor activity, psychomotor agitation. Attention span is poor. Orientation x2. Speech is disorganized, nonsensical. Thought process, disorganized and illogical. Insight and judgment is poor. DIAGNOSIS: Major depressive disorder, mild, recurrent with psychotic features, rule out dementia with psychosis. PLAN: A 20 minutes of cognitive behavioral therapy to help identify automatic negative thoughts and help her convert negative thoughts to more positive thoughts to reduce depression, anxiety, mood lability. Also treat with Namenda 5 mg daily, Depakote Sprinkles 125 mg every 6 hours. She will continued to be followed by Psychiatry throughout the hospital course. Chart reviewed. Discussed with staff. Seen and assessed in her room. Wyatt Payne M.D. DR: CADY JOB#: [id number] CC:
[2019-04-13 12:00] VITALS: BP 149/95
--- NOTE | 2019-04-13 12:34 | Infectious Diseases Prog Note ---
Assessment/Plan Assessment/Plan 84yo woman with PMH below presents from long term with fever, worsened confusion, refusal to eat, vomiting. Temp 102 at long term. Per long term staff, pt was vomiting for one day. Pt currently unable to provide history. She states yes to every question. Cannot follow commands. ID consulted for fever. fever, persistent Leukocytosis, SP Lactic acidosis, SP Influenza with possible superimposed bacterial PNA flu A positive On 2L NC CXR: No definite infiltrate or pulmonary vascular congestion identified. The heart is borderline enlarged. The aorta is mildly enlarged consistent with atherosclerotic vascular disease. The bones are osteopenic. 04/12 CXR: Suboptimal inspiration currently. There may be some retrocardiac consolidation. There may be a small amount of pleural fluid on the left. The remainder the lungs and pleural spaces are grossly clear. The heart size is upper limits of normal. There are degenerative changes of both shoulders noted. r/o bacteremia 04/08 BCx: ngtd Possible UTI UA 5-10WBC UCx: NG 03/25/19 HIV Abt negative MRSA screen negative CRE screen negative VRE screen negative PCN Allergy has tolerated Ceftriaxone and Cefepime in the past per long term records Plan: Oseltamivir #5/10 Levaquin #2 04/12 DC Azithromycin #5/5 04/08 SP Vancomycin and Azithromycin #1 f/u bcx f/u ucx elevate HOB, aspiration precaution discussed with RN Thank you for this consult. [facility] will continue to follow the patient with you. Subjective Allergies: Coded Allergies: PENICILLINS (Verified Allergy, Unknown, 04/08/19) Subjective Nurse reported temp of 100.5 that resolved without intervention. Pt was not in any acute distress. Objective Vital Signs Last 24 Hour Vital Signs Date Time Temp Pulse Resp B/P (MAP) Pulse Ox O2 Delivery O2 Flow Rate FiO2 04/13/19 09:45 96 154/85 04/13/19 08:00 97.7 96 20 154/65 (94) 100 04/13/19 08:00 Nasal Cannula 2.0 04/13/19 08:00 110 04/13/19 04:00 Nasal Cannula 2.0 04/13/19 04:00 97.7 89 20 148/76 (100) 98 04/13/19 03:48 98 04/13/19 00:00 98.0 86 18 159/70 (99) 100 04/13/19 00:00 Nasal Cannula 2.0 04/12/19 23:53 158/71 04/12/19 23:24 95 04/12/19 20:00 98.2 86 18 158/71 (100) 99 04/12/19 20:00 Nasal Cannula 2.0 04/12/19 19:18 95 18 98 Nasal Cannula 2.0 28 04/12/19 19:18 98 Nasal Cannula 2.0 28 04/12/19 19:01 99 04/12/19 17:10 89 146/66 04/12/19 16:00 Nasal Cannula 2.0 04/12/19 16:00 98.8 89 19 146/66 (92) 100 04/12/19 16:00 85 Height (Feet): 5 Height (Inches): 4.00 Weight (Pounds): 152 Objective Gen: NAD HEENT: anicteric sclera CV: RRR Resp: RRR. no wheezes Abd: normoactive Bs+. Soft. no TTP Ext: no LE edema Laboratory Tests Test 04/13/19 03:37 White Blood Count 10.5 K/UL (4.8-10.8) Red Blood Count 3.28 M/UL (4.20-5.40) L Hemoglobin 7.2 G/DL (12.0-16.0) L Hematocrit 22.9 % (37.0-47.0) L Mean Corpuscular Volume 70 FL (80-99) L Mean Corpuscular Hemoglobin 22.0 PG (27.0-31.0) L Mean Corpuscular Hemoglobin Concent 31.6 G/DL (32.0-36.0) L Red Cell Distribution Width 14.2 % (11.6-14.8) Platelet Count 74 K/UL (150-450) L Mean Platelet Volume 6.5 FL (6.5-10.1) Neutrophils (%) (Auto) % (45.0-75.0) Lymphocytes (%) (Auto) % (20.0-45.0) Monocytes (%) (Auto) % (1.0-10.0) Eosinophils (%) (Auto) % (0.0-3.0) Basophils (%) (Auto) % (0.0-2.0) Differential Total Cells Counted 100 Neutrophils % (Manual) 69 % (45-75) Lymphocytes % (Manual) 20 % (20-45) Monocytes % (Manual) 10 % (1-10) Eosinophils % (Manual) 1 % (0-3) Basophils % (Manual) 0 % (0-2) Band Neutrophils 0 % (0-8) Platelet Estimate Decreased L Platelet Morphology Normal Hypochromasia 2+ Anisocytosis 1+ Microcytosis 1+ Sodium Level 141 MMOL/L (136-145) Potassium Level 4.5 MMOL/L (3.5-5.1) Chloride Level 110 MMOL/L (98-107) H Carbon Dioxide Level 26 MMOL/L (21-32) Anion Gap 6 mmol/L (5-15) Blood Urea Nitrogen 34 mg/dL (7-18) H Creatinine 1.1 MG/DL (0.55-1.30) Estimat Glomerular Filtration Rate mL/min (>60) Glucose Level 98 MG/DL (74-106) Calcium Level 7.8 MG/DL (8.5-10.1) L Valproic Acid (Depakene) Level 36 MCG/ML (50-100) L Current Medications Medications (Trade) Dose Ordered Sig/Brady Route PRN Reason Start Time Stop Time Status Last Admin Dose Admin Acetaminophen (Tylenol) 650 mg Q4H PRN RECTAL Mild Pain (Pain Scale 1-3) 04/08/19 23:30 05/08/19 23:29 Acetaminophen (Tylenol) 650 mg Q6H PRN ORAL Mild Pain/Temp > 100.5 04/09/19 04:00 05/09/19 03:59 04/11/19 16:09 Albuterol/ Ipratropium (Albuterol/ Ipratropium) 3 ml Q6H PRN HHN Shortness of Breath 04/08/19 23:30 04/13/19 23:29 04/11/19 19:45 Dextrose/Sodium Chloride 1,000 ml @ 75 mls/hr [id number] IV 04/10/19 13:28 05/10/19 13:27 04/13/19 09:44 Divalproex Sodium (Depakote Sprinkles) 125 mg EVERY 6 HOURS ORAL 04/10/19 12:00 05/10/19 11:59 04/13/19 11:56 Docusate Sodium (Colace) 100 mg DAILY ORAL 04/10/19 09:00 05/09/19 08:59 04/13/19 09:45 Heparin Sodium (Porcine) (Heparin 5000 units/ml) 5,000 units EVERY 12 HOURS SUBQ 04/09/19 09:30 05/09/19 09:29 04/09/19 09:35 Hydralazine HCl (Apresoline) 25 mg Q6H PRN ORAL For High Blood Pressure 04/09/19 04:00 05/09/19 03:59 04/12/19 23:53 Hydralazine HCl (Apresoline) 25 mg Q6H PRN ORAL For High Blood Pressure 04/12/19 22:15 05/12/19 22:14 Levofloxacin 50 ml @ 50 mls/hr DAILY IVPB 04/13/19 09:00 04/20/19 08:59 04/13/19 09:50 Metoprolol Tartrate (Lopressor) 25 mg BID ORAL 04/10/19 18:15 05/10/19 18:14 04/13/19 09:45 Oseltamivir Phosphate (Tamiflu) 30 mg BID ORAL 04/13/19 09:00 04/18/19 23:59 04/13/19 09:44 Tramadol HCl (Ultram) 50 mg Q8H PRN ORAL Severe Pain (Pain Scale 7-10) 04/09/19 04:00 04/16/19 03:59 04/10/19 17:19 Tana Steinberg MD Apr 13, 2019 12:34
--- NOTE | 2019-04-13 13:31 | Hematology/Onc Progress Note ---
Assessment/Plan Assessment/Plan # Thrombocytopenia - potential causes multifactorial, evaluate liver and viral etiologies to begin, also could be related to underlying medications patient has received. ++ with spesis initially and with hepatitis C++ --> Hep panel and HIV ordered --> US abd to evaluate for cirrhosis and hsm ordered --> Peripheral smear ordered to evaluate for blasts /schistocytes --> abx and other meds have been reviewed --> ok for ppx if plt >50k w/ either heparin or lovenox --> Transfuse if Plt < 20k and fever, or if Plt < 10k without fever --> plt count 106-->88k-->74k # Anemia of chronic disease (or of iron deficiency) due to underlying chronic medical issues, multifactorial --> Anemia workup has been ordered, rule out gi bleed --> No evidence of hemolysis is noted, peripheral smear has been reviewed. --> Hgb goal >7. Transfuse prn. --> Epogen or iron at this time is not particularly indicated --> Medications have been reviewed --> low threshold for gi evaluation in case has occult + --> bone marrow biopsy is not indicated given the other more likely causes --> hgb trend 10-->9-->8.6-->8.2-->7.2 # Leukocytosis due to sepsis --> as abx per id for pna/influenza # Hypertension. --> sbp goal <140 # COPD. # GERD. # Hepatitis C. # Dementia. # Schizophrenia. # RACHEL The timing of this note does not necessarily reflect the time of the patient was seen. Greatly appreciate consultation. Subjective Constitutional: Denies: no symptoms, chills, fever, malaise, weakness, other HEENT: Denies: no symptoms, eye pain, blurred vision, tearing, double vision, ear pain, ear discharge, nose pain, nose congestion, throat pain, throat swelling, mouth pain, mouth swelling, other Cardiovascular: Denies: no symptoms, chest pain, edema, irregular heart rate, lightheadedness, palpitations, syncope, other Allergies: Coded Allergies: PENICILLINS (Verified Allergy, Unknown, 04/08/19) Subjective 04/13: confused, emily Rn, to get 2 units prbc today, no active bleeding but hgb downtrending Objective Objective Current Medications Medications (Trade) Dose Ordered Sig/Brady Route PRN Reason Start Time Stop Time Status Last Admin Dose Admin Acetaminophen (Tylenol) 650 mg Q4H PRN RECTAL Mild Pain (Pain Scale 1-3) 04/08/19 23:30 05/08/19 23:29 Acetaminophen (Tylenol) 650 mg Q6H PRN ORAL Mild Pain/Temp > 100.5 04/09/19 04:00 05/09/19 03:59 04/11/19 16:09 Albuterol/ Ipratropium (Albuterol/ Ipratropium) 3 ml Q6H PRN HHN Shortness of Breath 04/08/19 23:30 04/13/19 23:29 04/11/19 19:45 Dextrose/Sodium Chloride 1,000 ml @ 75 mls/hr [id number] IV 04/10/19 13:28 05/10/19 13:27 04/13/19 09:44 Divalproex Sodium (Depakote Sprinkles) 125 mg EVERY 6 HOURS ORAL 04/10/19 12:00 05/10/19 11:59 04/13/19 11:56 Docusate Sodium (Colace) 100 mg DAILY ORAL 04/10/19 09:00 05/09/19 08:59 04/13/19 09:45 Heparin Sodium (Porcine) (Heparin 5000 units/ml) 5,000 units EVERY 12 HOURS SUBQ 04/09/19 09:30 05/09/19 09:29 04/09/19 09:35 Hydralazine HCl (Apresoline) 25 mg Q6H PRN ORAL For High Blood Pressure 04/09/19 04:00 05/09/19 03:59 04/12/19 23:53 Hydralazine HCl (Apresoline) 25 mg Q6H PRN ORAL For High Blood Pressure 04/12/19 22:15 05/12/19 22:14 Levofloxacin 50 ml @ 50 mls/hr DAILY IVPB 04/13/19 09:00 04/20/19 08:59 04/13/19 09:50 Metoprolol Tartrate (Lopressor) 25 mg BID ORAL 04/10/19 18:15 05/10/19 18:14 04/13/19 09:45 Oseltamivir Phosphate (Tamiflu) 30 mg BID ORAL 04/13/19 09:00 04/18/19 23:59 04/13/19 09:44 Tramadol HCl (Ultram) 50 mg Q8H PRN ORAL Severe Pain (Pain Scale 7-10) 04/09/19 04:00 04/16/19 03:59 04/10/19 17:19 Last 24 Hour Vital Signs Date Time Temp Pulse Resp B/P (MAP) Pulse Ox O2 Delivery O2 Flow Rate FiO2 04/13/19 09:45 96 154/85 04/13/19 08:00 97.7 96 20 154/65 (94) 100 04/13/19 08:00 Nasal Cannula 2.0 04/13/19 08:00 110 04/13/19 04:00 Nasal Cannula 2.0 04/13/19 04:00 97.7 89 20 148/76 (100) 98 04/13/19 03:48 98 04/13/19 00:00 98.0 86 18 159/70 (99) 100 04/13/19 00:00 Nasal Cannula 2.0 04/12/19 23:53 158/71 04/12/19 23:24 95 04/12/19 20:00 98.2 86 18 158/71 (100) 99 04/12/19 20:00 Nasal Cannula 2.0 04/12/19 19:18 95 18 98 Nasal Cannula 2.0 28 04/12/19 19:18 98 Nasal Cannula 2.0 28 04/12/19 19:01 99 04/12/19 17:10 89 146/66 04/12/19 16:00 Nasal Cannula 2.0 04/12/19 16:00 98.8 89 19 146/66 (92) 100 04/12/19 16:00 85 04/12/19 12:00 98.2 82 19 141/62 (88) 100 04/12/19 12:00 78 04/12/19 12:00 Nasal Cannula 2.0 04/12/19 09:47 92 151/71 04/12/19 08:00 98.2 92 20 151/71 (97) 97 04/12/19 08:00 Nasal Cannula 2.0 04/12/19 08:00 91 04/12/19 07:07 83 18 92 Nasal Cannula 2.0 28 04/12/19 07:07 92 Nasal Cannula 2.0 28 04/12/19 04:00 Nasal Cannula 2.0 04/12/19 04:00 98.2 88 19 152/54 (86) 100 04/12/19 03:28 94 04/12/19 00:00 98.4 100 18 139/65 (89) 100 04/12/19 00:00 Nasal Cannula 2.0 04/12/19 00:00 88 04/11/19 20:00 Nasal Cannula 2.0 04/11/19 20:00 99.3 92 17 134/57 (82) 100 04/11/19 19:53 81 18 99 Nasal Cannula 2.0 28 04/11/19 19:52 99 Nasal Cannula 2.0 28 04/11/19 19:45 83 20 100 Nasal Cannula 4.0 36 81 20 99 04/11/19 19:23 83 04/11/19 18:03 84 152/71 04/11/19 16:39 100.9 04/11/19 16:00 101.8 80 16 152/71 (98) 100 04/11/19 16:00 84 04/11/19 16:00 Nasal Cannula 2.0 Intake and Output 04/12/19 04/13/19 19:00 07:00 Intake Total 500 ml 880 ml Output Total 550 ml 450 ml Balance -50 ml 430 ml Intake Oral 500 ml IV Total 880 ml Output Urine Total 550 ml 450 ml # Bowel Movements 1 Labs Test 04/11/19 08:50 04/12/19 03:27 04/13/19 03:37 White Blood Count 18.4 K/UL (4.8-10.8) 13.1 K/UL (4.8-10.8) 10.5 K/UL (4.8-10.8) Red Blood Count 3.92 M/UL (4.20-5.40) 3.69 M/UL (4.20-5.40) 3.28 M/UL (4.20-5.40) Hemoglobin 8.6 G/DL (12.0-16.0) 8.2 G/DL (12.0-16.0) 7.2 G/DL (12.0-16.0) Hematocrit 27.7 % (37.0-47.0) 25.7 % (37.0-47.0) 22.9 % (37.0-47.0) Mean Corpuscular Volume 71 FL (80-99) 70 FL (80-99) 70 FL (80-99) Mean Corpuscular Hemoglobin 22.0 PG (27.0-31.0) 22.2 PG (27.0-31.0) 22.0 PG (27.0-31.0) Mean Corpuscular Hemoglobin Concent 31.1 G/DL (32.0-36.0) 31.9 G/DL (32.0-36.0) 31.6 G/DL (32.0-36.0) Red Cell Distribution Width 16.7 % (11.6-14.8) 14.0 % (11.6-14.8) 14.2 % (11.6-14.8) Platelet Count 98 K/UL (150-450) 88 K/UL (150-450) 74 K/UL (150-450) Mean Platelet Volume 8.4 FL (6.5-10.1) 8.3 FL (6.5-10.1) 6.5 FL (6.5-10.1) Neutrophils (%) (Auto) % (45.0-75.0) % (45.0-75.0) % (45.0-75.0) Lymphocytes (%) (Auto) % (20.0-45.0) % (20.0-45.0) % (20.0-45.0) Monocytes (%) (Auto) % (1.0-10.0) % (1.0-10.0) % (1.0-10.0) Eosinophils (%) (Auto) % (0.0-3.0) % (0.0-3.0) % (0.0-3.0) Basophils (%) (Auto) % (0.0-2.0) % (0.0-2.0) % (0.0-2.0) Differential Total Cells Counted 100 100 Neutrophils % (Manual) 82 % (45-75) 69 % (45-75) Lymphocytes % (Manual) 9 % (20-45) 20 % (20-45) Monocytes % (Manual) 6 % (1-10) 10 % (1-10) Eosinophils % (Manual) 0 % (0-3) 1 % (0-3) Basophils % (Manual) 0 % (0-2) 0 % (0-2) Band Neutrophils 3 % (0-8) 0 % (0-8) Platelet Estimate Decreased Decreased Platelet Morphology Normal Normal Hypochromasia 1+ 2+ Anisocytosis 1+ 1+ Microcytosis 1+ 1+ Sodium Level 140 MMOL/L (136-145) 140 MMOL/L (136-145) 141 MMOL/L (136-145) Potassium Level 4.3 MMOL/L (3.5-5.1) 4.3 MMOL/L (3.5-5.1) 4.5 MMOL/L (3.5-5.1) Chloride Level 108 MMOL/L (98-107) 108 MMOL/L (98-107) 110 MMOL/L (98-107) Carbon Dioxide Level 25 MMOL/L (21-32) 25 MMOL/L (21-32) 26 MMOL/L (21-32) Anion Gap 7 mmol/L (5-15) 7 mmol/L (5-15) 6 mmol/L (5-15) Blood Urea Nitrogen 39 mg/dL (7-18) 42 mg/dL (7-18) 34 mg/dL (7-18) Creatinine 1.2 MG/DL (0.55-1.30) 1.2 MG/DL (0.55-1.30) 1.1 MG/DL (0.55-1.30) Estimat Glomerular Filtration Rate mL/min (>60) mL/min (>60) mL/min (>60) Glucose Level 122 MG/DL (74-106) 108 MG/DL (74-106) 98 MG/DL (74-106) Calcium Level 7.5 MG/DL (8.5-10.1) 8.1 MG/DL (8.5-10.1) 7.8 MG/DL (8.5-10.1) Valproic Acid (Depakene) Level 36 MCG/ML (50-100) Height (Feet): 5 Height (Inches): 4.00 Weight (Pounds): 152 Objective Physical Exam: Vitals: reviewed General Appearance: ++ confused HEENT: normocephalic, atraumatic Neck: non-tender, normal alignment Respiratory/Chest: normal breath sounds bilaterally Cardiovascular/Chest: normal peripheral pulses, normal rate Abdomen: normal bowel sounds, soft, nontender Extremities: normal range of motion Michele Landaverde MD Apr 13, 2019 13:31
--- NOTE | 2019-04-13 13:40 | GI Initial Consult Note ---
History of Present Illness General Date patient seen: Apr 13, 2019 Time patient seen: 13:35 Reason for Hospitalization: Fever Referring physician: EMILIANO OSMAN Reason for Consultation: ANEMIA Present Illness HPI Patient is an 84-year-old female presents after increased fever [facility]. Patient had prior history of dementia as well as increased debilitation. Patient had been given antipyretic at her facility. Patient was noted to have increased work of breathing as well as increased confusion compared to baseline. Patient had been sent in for further evaluation of fever. She had previous episodes of GI bleeding in the past. Patient was sent by Dr. Osman GI consult for anemia. ROS limited, patient seen alert awake unable to provide any history information at this time. At the time of evaluation, the patient presents with a hemoglobin of 7.2. Discussion with RN reported no signs or symptoms of of any GI bleed. The patient is pending 1 unit of packed RBCs. Unknown history of endoscopic or colonoscopy. Home Meds Reported Medications Cranberry Fruit Concentrate (CRANBERRY) 450 Mg Capsule, 450 MG PO DAILY for UTI PROPHYLAXIS, CAP 04/10/19 Quetiapine Fumarate* (SEROQUEL*) 100 Mg Tablet, 100 MG ORAL QHS for ANXIETY, TAB 04/10/19 Quetiapine Fumarate* (QUETIAPINE FUMARATE*) 50 Mg Tablet, 50 MG ORAL DAILY for ANXIETY, TAB 04/10/19 Lorazepam* (ATIVAN*) 1 Mg Tablet, 1 MG ORAL QID PRN for For Anxiety, TAB 04/10/19 Tramadol Hcl* (ULTRAM*) 50 Mg Tablet, 50 MG ORAL Q8HR PRN for Severe Pain (Pain Scale 7-10), #10 TAB 0 Refills 04/09/19 Hydralazine Hcl* (HYDRALAZINE HCL*) 25 Mg Tablet, 25 MG ORAL EVERY 6 HOURS PRN for For High Blood Pressure, TAB 0 Refills FOR SBP > 140 04/09/19 Docusate Sodium* (COLACE*) 100 Mg Capsule, 100 MG ORAL DAILY for STOOL SOFTENER , CAP HOLD FOR LOOSE BOWEL MOVEMENT 04/09/19 Acetaminophen* (ACETAMINOPHEN 325MG TABLET*) 325 Mg Tablet, 325 MG ORAL Q6H PRN for MILD PAIN/TEMP > 101, TAB 04/09/19 Divalproex Sodium* (DEPAKOTE*) 250 Mg Tablet.dr, 500 MG PO DAILY, TAB 04/09/19 Melatonin (MELATONIN) 3 Mg Tablet, 3 MG ORAL BEDTIME, TAB 04/09/19 Metoprolol Tartrate* (METOPROLOL TARTRATE*) 25 Mg Tablet, 25 MG ORAL BID, TAB HOLD FOR SBP<100, HR<60 04/08/19 Furosemide* (LASIX*) 20 Mg Tablet, 20 MG ORAL DAILY, TAB 04/08/19 Diphenhydramine Hcl* (DIPHENHYDRAMINE HCL*) 25 Mg Capsule, 25 MG ORAL Q6H PRN for Itching, #30 CAP 0 Refills 04/08/19 Albuterol Sulfate* (ALBUTEROL SULFATE MDI*) 8.5 Gm Hfa.aer.ad, 2 PUFF INH QID PRN for WHEEZING, #1 INH 0 Refills 04/08/19 Discontinued Reported Medications Acetaminophen (Tylenol) 325 Mg Tablet, 325 MG ORAL Q6H PRN for Prn Pain/Headache /Temp > 101, #30 TAB 0 Refills 04/08/19 Tramadol Hcl* (ULTRAM*) 50 Mg Tablet, 50 MG ORAL Q6H PRN for For Pain, #12 TAB 0 Refills 04/08/19 Hydralazine Hcl* (HYDRALAZINE HCL*) 25 Mg Tablet, 25 MG ORAL EVERY 8 HOURS, TAB 0 Refills 04/08/19 Divalproex Sodium* (DEPAKOTE*) 250 Mg Tablet.dr, 500 MG PO Q12HR, TAB 04/08/19 Med list reviewed/reconciled: Yes Allergies: Coded Allergies: PENICILLINS (Verified Allergy, Unknown, 04/08/19) Patient History Limited by: medical condition History Provided By: Medical Record PMH Narrative Past Medical History: see triage record Reviewed Nursing Documentation: PMH: Agreed; PSxH: Agreed Social History: Denies: smoking, alcohol use, drug use, other Review of Systems All Other Systems: limited Physical Exam Vital Signs Date Time Temp Pulse Resp B/P (MAP) Pulse Ox O2 Delivery O2 Flow Rate FiO2 04/09/19 07:40 95 Nasal Cannula 2.0 28 04/09/19 07:45 115 20 04/09/19 09:00 99.1 134/76 (95) Sp02 EP Interpretation: reviewed, normal Labs Laboratory Tests Test 04/13/19 03:37 White Blood Count 10.5 K/UL (4.8-10.8) Red Blood Count 3.28 M/UL (4.20-5.40) L Hemoglobin 7.2 G/DL (12.0-16.0) L Hematocrit 22.9 % (37.0-47.0) L Mean Corpuscular Volume 70 FL (80-99) L Mean Corpuscular Hemoglobin 22.0 PG (27.0-31.0) L Mean Corpuscular Hemoglobin Concent 31.6 G/DL (32.0-36.0) L Red Cell Distribution Width 14.2 % (11.6-14.8) Platelet Count 74 K/UL (150-450) L Mean Platelet Volume 6.5 FL (6.5-10.1) Neutrophils (%) (Auto) % (45.0-75.0) Lymphocytes (%) (Auto) % (20.0-45.0) Monocytes (%) (Auto) % (1.0-10.0) Eosinophils (%) (Auto) % (0.0-3.0) Basophils (%) (Auto) % (0.0-2.0) Differential Total Cells Counted 100 Neutrophils % (Manual) 69 % (45-75) Lymphocytes % (Manual) 20 % (20-45) Monocytes % (Manual) 10 % (1-10) Eosinophils % (Manual) 1 % (0-3) Basophils % (Manual) 0 % (0-2) Band Neutrophils 0 % (0-8) Platelet Estimate Decreased L Platelet Morphology Normal Hypochromasia 2+ Anisocytosis 1+ Microcytosis 1+ Sodium Level 141 MMOL/L (136-145) Potassium Level 4.5 MMOL/L (3.5-5.1) Chloride Level 110 MMOL/L (98-107) H Carbon Dioxide Level 26 MMOL/L (21-32) Anion Gap 6 mmol/L (5-15) Blood Urea Nitrogen 34 mg/dL (7-18) H Creatinine 1.1 MG/DL (0.55-1.30) Estimat Glomerular Filtration Rate mL/min (>60) Glucose Level 98 MG/DL (74-106) Calcium Level 7.8 MG/DL (8.5-10.1) L Ferritin Pending Valproic Acid (Depakene) Level 36 MCG/ML (50-100) L Hepatitis A IgM Antibody Pending Hepatitis B Surface Antigen Pending Hepatitis B Core IgM Antibody Pending Hepatitis C Antibody Pending HIV (1&2) Antibody Rapid Pending General Appearance: no apparent distress Head: normocephalic EENT: PERRL/EOMI, normal ENT inspection Neck: supple Respiratory: normal breath sounds, no respiratory distress Cardiovascular: normal rate Gastrointestinal: normal inspection, non tender, soft, normal bowel sounds, non -distended Rectal: deferred Genitourinary: no CVA tenderness Musculoskeletal: normal inspection, back normal Neurologic: alert, responsive Skin: normal inspection, normal color, no rash, warm/dry, palpation normal, well hydrated Lymphatic: normal inspection, no adenopathy Current Medications Current Medications Medications (Trade) Dose Ordered Sig/Brady Route PRN Reason Start Time Stop Time Status Last Admin Dose Admin Acetaminophen (Tylenol) 650 mg Q4H PRN RECTAL Mild Pain (Pain Scale 1-3) 04/08/19 23:30 05/08/19 23:29 Acetaminophen (Tylenol) 650 mg Q6H PRN ORAL Mild Pain/Temp > 100.5 04/09/19 04:00 05/09/19 03:59 04/11/19 16:09 Albuterol/ Ipratropium (Albuterol/ Ipratropium) 3 ml Q6H PRN HHN Shortness of Breath 04/08/19 23:30 04/13/19 23:29 04/11/19 19:45 Dextrose/Sodium Chloride 1,000 ml @ 75 mls/hr [id number] IV 04/10/19 13:28 05/10/19 13:27 04/13/19 09:44 Divalproex Sodium (Depakote Sprinkles) 125 mg EVERY 6 HOURS ORAL 04/10/19 12:00 05/10/19 11:59 04/13/19 11:56 Docusate Sodium (Colace) 100 mg DAILY ORAL 04/10/19 09:00 05/09/19 08:59 04/13/19 09:45 Heparin Sodium (Porcine) (Heparin 5000 units/ml) 5,000 units EVERY 12 HOURS SUBQ 04/09/19 09:30 05/09/19 09:29 04/09/19 09:35 Hydralazine HCl (Apresoline) 25 mg Q6H PRN ORAL For High Blood Pressure 04/09/19 04:00 05/09/19 03:59 04/12/19 23:53 Hydralazine HCl (Apresoline) 25 mg Q6H PRN ORAL For High Blood Pressure 04/12/19 22:15 05/12/19 22:14 Levofloxacin 50 ml @ 50 mls/hr DAILY IVPB 04/13/19 09:00 04/20/19 08:59 04/13/19 09:50 Metoprolol Tartrate (Lopressor) 25 mg BID ORAL 04/10/19 18:15 05/10/19 18:14 04/13/19 09:45 Oseltamivir Phosphate (Tamiflu) 30 mg BID ORAL 04/13/19 09:00 04/18/19 23:59 04/13/19 09:44 Tramadol HCl (Ultram) 50 mg Q8H PRN ORAL Severe Pain (Pain Scale 7-10) 04/09/19 04:00 04/16/19 03:59 04/10/19 17:19 GI: Plan Problems: (1) Anemia (2) Severe sepsis Plan will consider endoscopy pending work up. anemia work up OB stool r/o GI bleed monitor H&H, prn transfusions bowel regimen ppi fu labs Discussed with Dr. Cabrera. Thank you for this patient referral, we will follow. The patient was seen and examined at bedside and all new and available data was reviewed in the patients chart. I agree with the above findings, impression and plan. (Patient seen earlier today. Signature stamp does not reflect patient encounter time.). - MD Randi Worrell,[facility]-[employer] Apr 13, 2019 13:40
--- NOTE | 2019-04-13 14:36 | General Progress Note ---
Assessment/Plan Problem List: (1) Malnutrition ICD Codes: E46 - Unspecified protein-calorie malnutrition SNOMED: 07712425 (2) Confusion ICD Codes: R41.0 - Disorientation, unspecified SNOMED: 557143357 (3) Renal insufficiency ICD Codes: N28.9 - Disorder of kidney and ureter, unspecified SNOMED: 580410442, 752923689 (4) Urinary tract infection ICD Codes: N39.0 - Urinary tract infection, site not specified SNOMED: 46539942 (5) Severe sepsis ICD Codes: A41.9 - Sepsis, unspecified organism; R65.20 - Severe sepsis without septic shock SNOMED: 00317745 Status: unchanged Assessment/Plan: o2 pulm tx abx pt diet eval cbc bmp am ltach eval Subjective Constitutional: Reports: weakness Allergies: Coded Allergies: PENICILLINS (Verified Allergy, Unknown, 04/08/19) All Systems: reviewed and negative except above Subjective o2nc sleepy Objective Last 24 Hour Vital Signs Date Time Temp Pulse Resp B/P (MAP) Pulse Ox O2 Delivery O2 Flow Rate FiO2 04/13/19 13:29 89 04/13/19 12:00 99.1 91 20 149/95 (113) 100 04/13/19 12:00 Nasal Cannula 2.0 04/13/19 09:45 96 154/85 04/13/19 08:24 89 18 99 Nasal Cannula 2.0 28 04/13/19 08:24 99 Nasal Cannula 2.0 28 04/13/19 08:00 97.7 96 20 154/65 (94) 100 04/13/19 08:00 Nasal Cannula 2.0 04/13/19 08:00 110 04/13/19 04:00 Nasal Cannula 2.0 04/13/19 04:00 97.7 89 20 148/76 (100) 98 04/13/19 03:48 98 04/13/19 00:00 98.0 86 18 159/70 (99) 100 04/13/19 00:00 Nasal Cannula 2.0 04/12/19 23:53 158/71 04/12/19 23:24 95 04/12/19 20:00 98.2 86 18 158/71 (100) 99 04/12/19 20:00 Nasal Cannula 2.0 04/12/19 19:18 95 18 98 Nasal Cannula 2.0 28 04/12/19 19:18 98 Nasal Cannula 2.0 28 04/12/19 19:01 99 04/12/19 17:10 89 146/66 04/12/19 16:00 Nasal Cannula 2.0 04/12/19 16:00 98.8 89 19 146/66 (92) 100 04/12/19 16:00 85 Intake and Output 04/12/19 04/13/19 19:00 07:00 Intake Total 500 ml 880 ml Output Total 550 ml 450 ml Balance -50 ml 430 ml Intake Oral 500 ml IV Total 880 ml Output Urine Total 550 ml 450 ml # Bowel Movements 1 Laboratory Tests 04/13/19 03:37: White Blood Count 10.5, Red Blood Count 3.28L, Hemoglobin 7.2L, Hematocrit 22.9L , Mean Corpuscular Volume 70L, Mean Corpuscular Hemoglobin 22.0L, Mean Corpuscular Hemoglobin Concent 31.6L, Red Cell Distribution Width 14.2, Platelet Count 74L, Mean Platelet Volume 6.5, Neutrophils (%) (Auto) , Lymphocytes (%) (Auto) , Monocytes (%) (Auto) , Eosinophils (%) (Auto) , Basophils (%) (Auto) , Differential Total Cells Counted 100, Neutrophils % ( Manual) 69, Lymphocytes % (Manual) 20, Monocytes % (Manual) 10, Eosinophils % ( Manual) 1, Basophils % (Manual) 0, Band Neutrophils 0, Platelet Estimate DecreasedL, Platelet Morphology Normal, Hypochromasia 2+, Anisocytosis 1+, Microcytosis 1+, Sodium Level 141, Potassium Level 4.5, Chloride Level 110H, Carbon Dioxide Level 26, Anion Gap 6, Blood Urea Nitrogen 34H, Creatinine 1.1, Estimat Glomerular Filtration Rate , Glucose Level 98, Calcium Level 7.8L, Ferritin 751H, Valproic Acid (Depakene) Level 36L, Hepatitis A IgM Antibody [ Pending], Hepatitis B Surface Antigen [Pending], Hepatitis B Core IgM Antibody [ Pending], Hepatitis C Antibody [Pending], HIV (1&2) Antibody Rapid Negative Height (Feet): 5 Height (Inches): 4.00 Weight (Pounds): 152 General Appearance: lethargic EENT: normal ENT inspection Neck: normal alignment Cardiovascular: normal peripheral pulses, normal rate, regular rhythm Respiratory/Chest: chest wall non-tender, lungs clear, normal breath sounds Abdomen: normal bowel sounds, non tender, soft Extremities: normal inspection Neurologic: motor weakness Skin: normal pigmentation, warm/dry Braydon Mchugh DO Apr 13, 2019 14:36
[2019-04-13] MEDS: Acetaminophen 650 MG SUPP RECTAL PRN ×2 (14:55→21:49)
[2019-04-13 16:00] VITALS: BP 159/72
[2019-04-13 20:00] VITALS: BP 162/82
[2019-04-13] MEDS: HydrALAZINE 25mg tab ORAL PRN (20:34)
--- NOTE | 2019-04-13 23:59 | Cardiology Progress Note ---
Assessment/Plan Assessment/Plan 1. Sinus tachycardia, resolved, most likely due to sepsis. Continue IV ABx and hydration. 2D echocardiography had shown normal LV systolic function with normal intracardiac filling pressure. DC digoxin. 2. Acute kidney injury, most likely prerenal azotemia, continue on IV fluid. 3. History of GI bleeding in the past. 4. History of hypertension. 5. Mild pulmonary hypertension. Subjective Subjective Sinus rhythm at rate of 87, with frequent APCs and VPCs. On NC oxygen. Objective Last 24 Hour Vital Signs Date Time Temp Pulse Resp B/P (MAP) Pulse Ox O2 Delivery O2 Flow Rate FiO2 04/13/19 21:00 87 18 99 Nasal Cannula 2.0 28 04/13/19 21:00 99 Nasal Cannula 2.0 28 04/13/19 20:34 162/82 04/13/19 17:41 88 156/87 04/13/19 16:00 Nasal Cannula 2.0 04/13/19 16:00 98.4 77 20 159/72 (101) 100 04/13/19 15:36 90 04/13/19 15:25 98.5 04/13/19 13:29 89 04/13/19 12:00 99.1 91 20 149/95 (113) 100 04/13/19 12:00 Nasal Cannula 2.0 04/13/19 09:45 96 154/85 04/13/19 08:24 89 18 99 Nasal Cannula 2.0 28 04/13/19 08:24 99 Nasal Cannula 2.0 28 04/13/19 08:00 97.7 96 20 154/65 (94) 100 04/13/19 08:00 Nasal Cannula 2.0 04/13/19 08:00 110 04/13/19 04:00 Nasal Cannula 2.0 04/13/19 04:00 97.7 89 20 148/76 (100) 98 04/13/19 03:48 98 04/13/19 00:00 98.0 86 18 159/70 (99) 100 04/13/19 00:00 Nasal Cannula 2.0 Intake and Output 04/12/19 04/13/19 19:00 07:00 Intake Total 500 ml 880 ml Output Total 550 ml 450 ml Balance -50 ml 430 ml Intake Oral 500 ml IV Total 880 ml Output Urine Total 550 ml 450 ml # Bowel Movements 1 2D Echo: LVEF 55-60%, MIld LVH, Grade LVDD, Mild MR, RVSP 43 mmHg Laboratory Tests Test 04/13/19 03:37 04/13/19 15:30 04/13/19 21:20 White Blood Count 10.5 K/UL (4.8-10.8) Red Blood Count 3.28 M/UL (4.20-5.40) L Hemoglobin 7.2 G/DL (12.0-16.0) L Hematocrit 22.9 % (37.0-47.0) L Mean Corpuscular Volume 70 FL (80-99) L Mean Corpuscular Hemoglobin 22.0 PG (27.0-31.0) L Mean Corpuscular Hemoglobin Concent 31.6 G/DL (32.0-36.0) L Red Cell Distribution Width 14.2 % (11.6-14.8) Platelet Count 74 K/UL (150-450) L Mean Platelet Volume 6.5 FL (6.5-10.1) Neutrophils (%) (Auto) % (45.0-75.0) Lymphocytes (%) (Auto) % (20.0-45.0) Monocytes (%) (Auto) % (1.0-10.0) Eosinophils (%) (Auto) % (0.0-3.0) Basophils (%) (Auto) % (0.0-2.0) Differential Total Cells Counted 100 Neutrophils % (Manual) 69 % (45-75) Lymphocytes % (Manual) 20 % (20-45) Monocytes % (Manual) 10 % (1-10) Eosinophils % (Manual) 1 % (0-3) Basophils % (Manual) 0 % (0-2) Band Neutrophils 0 % (0-8) Platelet Estimate Decreased L Platelet Morphology Normal Hypochromasia 2+ Anisocytosis 1+ Microcytosis 1+ Sodium Level 141 MMOL/L (136-145) Potassium Level 4.5 MMOL/L (3.5-5.1) Chloride Level 110 MMOL/L (98-107) H Carbon Dioxide Level 26 MMOL/L (21-32) Anion Gap 6 mmol/L (5-15) Blood Urea Nitrogen 34 mg/dL (7-18) H Creatinine 1.1 MG/DL (0.55-1.30) Estimat Glomerular Filtration Rate mL/min (>60) Glucose Level 98 MG/DL (74-106) Calcium Level 7.8 MG/DL (8.5-10.1) L Ferritin 751 NG/ML (8-388) H Valproic Acid (Depakene) Level 36 MCG/ML (50-100) L Hepatitis A IgM Antibody Pending Hepatitis B Surface Antigen Pending Hepatitis B Core IgM Antibody Pending Hepatitis C Antibody Pending HIV (1&2) Antibody Rapid Negative (NEGATIVE) Stool Occult Blood Pending Pending Objective HEENT: Atraumatic and normocephalic. Anicteric. Pupils are equal, round, and reactive to light and accommodation. Extraocular muscles intact. NECK: JVP less than 5 cm. No carotid bruit. Carotid upstrokes 2+ bilaterally. CARDIOVASCULAR SYSTEM: Normal S1 and S2. Regular rate and rhythm. No murmurs, gallops, or rubs. LUNGS: Clear to auscultation bilaterally. ABDOMEN: Soft, nontender, and nondistended. No hepatosplenomegaly. Positive bowel sounds. EXTREMITIES: No evidence of edema, clubbing, or cyanosis. Maikel Garrett MD Apr 13, 2019 23:59
[2019-04-14] VITALS: BP 149/79
[2019-04-14] MEDS: Depakote 125mg Sprinkles ORAL SCH ×4 (00:54→18:26)
[2019-04-14 04:00] VITALS: BP 148/79
[2019-04-14 05:30] LABS: BASOPHILS % (AUTO) 1.1 % (0.0-2.0); EOSINOPHILS % (AUTO) 0.9 % (0.0-3.0); HEMATOCRIT 30.4 % (37.0-47.0); HEMOGLOBIN 9.9 G/DL (12.0-16.0); LYMPHOCYTES % (AUTO) 6.3 % (20.0-45.0); MEAN CORPUSCULAR VOLUME 74 FL (80-99); MONOCYTES % (AUTO) 16.1 % (1.0-10.0); NEUTROPHILS % (AUTO) 75.8 % (45.0-75.0); PLATELET COUNT 113 K/UL (150-450); RED BLOOD COUNT 4.11 M/UL (4.20-5.40); RED CELL DISTRIBUTION WIDTH 18.3 % (11.6-14.8); WHITE BLOOD COUNT 11.8 K/UL (4.8-10.8)
[2019-04-14 05:37] LABS: INR 1.3 (0.9-1.1)
[2019-04-14 05:52] LABS: ALANINE AMINOTRANSFERASE 19 U/L (12-78); ALBUMIN 1.6 G/DL (3.4-5.0); ALBUMIN/GLOBULIN RATIO 0.3 (1.0-2.7); ALKALINE PHOSPHATASE 80 U/L (46-116); ANION GAP 2 mmol/L (5-15); ASPARTATE AMINO TRANSFERASE 41 U/L (15-37); BILIRUBIN,TOTAL 2.3 MG/DL (0.2-1.0); BLOOD UREA NITROGEN 31 mg/dL (7-18); CALCIUM 7.7 MG/DL (8.5-10.1); CARBON DIOXIDE 28 MMOL/L (21-32); CHLORIDE 109 MMOL/L (98-107); CREATININE 0.9 MG/DL (0.55-1.30); POTASSIUM 4.4 MMOL/L (3.5-5.1); SODIUM 139 MMOL/L (136-145)
--- NOTE | 2019-04-14 05:57 | Hematology/Onc Progress Note ---
Assessment/Plan Assessment/Plan # Thrombocytopenia - potential causes multifactorial, evaluate liver and viral etiologies to begin, also could be related to underlying medications patient has received. ++ with spesis initially and with hepatitis C++ --> Hep panel and HIV ordered --> US abd to evaluate for cirrhosis and hsm ordered --> Peripheral smear ordered to evaluate for blasts /schistocytes --> abx and other meds have been reviewed --> ok for ppx if plt >50k w/ either heparin or lovenox --> Transfuse if Plt < 20k and fever, or if Plt < 10k without fever --> plt count 106-->88k-->74k-->113k # Anemia of chronic disease (or of iron deficiency) due to underlying chronic medical issues, multifactorial --> Anemia workup has been ordered, rule out gi bleed --> No evidence of hemolysis is noted, peripheral smear has been reviewed. --> Hgb goal >7. Transfuse prn. --> Epogen or iron at this time is not particularly indicated --> Medications have been reviewed --> low threshold for gi evaluation in case has occult + --> bone marrow biopsy is not indicated given the other more likely causes --> hgb trend 10-->9-->8.6-->8.2-->7.2-->9.9 # Leukocytosis due to sepsis --> as abx per id for pna/influenza # Hypertension. --> sbp goal <140 # COPD. # GERD. # Hepatitis C # Dementia. # Schizophrenia. # RACHEL The timing of this note does not necessarily reflect the time of the patient was seen. Greatly appreciate consultation. Subjective Constitutional: Denies: no symptoms, chills, fever, malaise, weakness, other HEENT: Denies: no symptoms, eye pain, blurred vision, tearing, double vision, ear pain, ear discharge, nose pain, nose congestion, throat pain, throat swelling, mouth pain, mouth swelling, other Cardiovascular: Denies: no symptoms, chest pain, edema, irregular heart rate, lightheadedness, palpitations, syncope, other Respiratory: Denies: no symptoms, cough, shortness of breath, SOB with excertion, SOB at rest, sputum, wheezing, other Gastrointestinal/Abdominal: Denies: no symptoms, abdomen distended, abdominal pain, black stools, tarry stools, blood in stool, constipated, diarrhea, difficulty swallowing, nausea, poor appetite, poor fluid intake, rectal bleeding , vomiting, other Genitourinary: Denies: no symptoms, burning, discharge, frequency, flank pain, hematuria, incontinence, pain, urgency, other Neurologic/Psychiatric: Denies: no symptoms, anxiety, depressed, emotional problems, headache, numbness, paresthesia, pre-existing deficit, seizure, tingling, tremors, weakness, other Endocrine: Denies: no symptoms, excessive sweating, flushing, intolerance to cold, intolerance to heat, increased hunger, increased thirst, increased urine, unexplained weight gain, unexplained weight loss, other Allergies: Coded Allergies: PENICILLINS (Verified Allergy, Unknown, 04/08/19) Subjective 04/13: confused, dw Rn, to get 2 units prbc today, no active bleeding but hgb downtrending 04/14: labs better today, on ivf, hgb is higher, plts as well, no resp distress Objective Objective Current Medications Medications (Trade) Dose Ordered Sig/Brady Route PRN Reason Start Time Stop Time Status Last Admin Dose Admin Acetaminophen (Tylenol) 650 mg Q4H PRN RECTAL Mild Pain (Pain Scale 1-3) 04/08/19 23:30 05/08/19 23:29 04/13/19 21:49 Acetaminophen (Tylenol) 650 mg Q6H PRN ORAL Mild Pain/Temp > 100.5 04/09/19 04:00 05/09/19 03:59 04/11/19 16:09 Dextrose/Sodium Chloride 1,000 ml @ 75 mls/hr [id number] IV 04/10/19 13:28 05/10/19 13:27 04/13/19 21:48 Divalproex Sodium (Depakote Sprinkles) 125 mg EVERY 6 HOURS ORAL 04/10/19 12:00 05/10/19 11:59 04/14/19 00:54 Docusate Sodium (Colace) 100 mg DAILY ORAL 04/10/19 09:00 05/09/19 08:59 04/13/19 09:45 Heparin Sodium (Porcine) (Heparin 5000 units/ml) 5,000 units EVERY 12 HOURS SUBQ 04/09/19 09:30 05/09/19 09:29 04/09/19 09:35 Hydralazine HCl (Apresoline) 25 mg Q6H PRN ORAL For High Blood Pressure 04/09/19 04:00 05/09/19 03:59 04/13/19 20:34 Hydralazine HCl (Apresoline) 25 mg Q6H PRN ORAL For High Blood Pressure 04/12/19 22:15 05/12/19 22:14 Levofloxacin 50 ml @ 50 mls/hr DAILY IVPB 04/13/19 09:00 04/20/19 08:59 04/13/19 09:50 Metoprolol Tartrate (Lopressor) 25 mg BID ORAL 04/10/19 18:15 05/10/19 18:14 04/13/19 17:41 Oseltamivir Phosphate (Tamiflu) 30 mg BID ORAL 04/13/19 09:00 04/18/19 23:59 04/13/19 17:41 Tramadol HCl (Ultram) 50 mg Q8H PRN ORAL Severe Pain (Pain Scale 7-10) 04/09/19 04:00 04/16/19 03:59 04/10/19 17:19 Last 24 Hour Vital Signs Date Time Temp Pulse Resp B/P (MAP) Pulse Ox O2 Delivery O2 Flow Rate FiO2 04/14/19 04:00 85 04/14/19 04:00 Nasal Cannula 2.0 04/14/19 00:00 98.8 87 20 149/79 (102) 99 04/14/19 00:00 85 04/14/19 00:00 Nasal Cannula 2.0 04/13/19 21:00 87 18 99 Nasal Cannula 2.0 28 04/13/19 21:00 99 Nasal Cannula 2.0 28 04/13/19 20:34 162/82 04/13/19 20:00 99.9 89 20 162/82 (108) 100 04/13/19 20:00 Nasal Cannula 2.0 04/13/19 20:00 89 04/13/19 17:41 88 156/87 04/13/19 16:00 Nasal Cannula 2.0 04/13/19 16:00 98.4 77 20 159/72 (101) 100 04/13/19 15:36 90 04/13/19 15:25 98.5 04/13/19 13:29 89 04/13/19 12:00 99.1 91 20 149/95 (113) 100 04/13/19 12:00 Nasal Cannula 2.0 04/13/19 09:45 96 154/85 04/13/19 08:24 89 18 99 Nasal Cannula 2.0 28 04/13/19 08:24 99 Nasal Cannula 2.0 28 04/13/19 08:00 97.7 96 20 154/65 (94) 100 04/13/19 08:00 Nasal Cannula 2.0 04/13/19 08:00 110 04/13/19 04:00 Nasal Cannula 2.0 04/13/19 04:00 97.7 89 20 148/76 (100) 98 04/13/19 03:48 98 04/13/19 00:00 98.0 86 18 159/70 (99) 100 04/13/19 00:00 Nasal Cannula 2.0 04/12/19 23:53 158/71 04/12/19 23:24 95 04/12/19 20:00 98.2 86 18 158/71 (100) 99 04/12/19 20:00 Nasal Cannula 2.0 04/12/19 19:18 95 18 98 Nasal Cannula 2.0 28 04/12/19 19:18 98 Nasal Cannula 2.0 28 04/12/19 19:01 99 04/12/19 17:10 89 146/66 04/12/19 16:00 Nasal Cannula 2.0 04/12/19 16:00 98.8 89 19 146/66 (92) 100 04/12/19 16:00 85 04/12/19 12:00 98.2 82 19 141/62 (88) 100 04/12/19 12:00 78 04/12/19 12:00 Nasal Cannula 2.0 04/12/19 09:47 92 151/71 04/12/19 08:00 98.2 92 20 151/71 (97) 97 04/12/19 08:00 Nasal Cannula 2.0 04/12/19 08:00 91 04/12/19 07:07 83 18 92 Nasal Cannula 2.0 28 04/12/19 07:07 92 Nasal Cannula 2.0 28 Intake and Output 04/13/19 04/14/19 19:00 07:00 Intake Total 500 ml Output Total 550 ml Balance -50 ml Intake Oral 500 ml Output Urine Total 550 ml # Bowel Movements 1 Labs Test 04/11/19 08:50 04/12/19 03:27 04/13/19 03:37 04/13/19 15:30 White Blood Count 18.4 K/UL (4.8-10.8) 13.1 K/UL (4.8-10.8) 10.5 K/UL (4.8-10.8) Red Blood Count 3.92 M/UL (4.20-5.40) 3.69 M/UL (4.20-5.40) 3.28 M/UL (4.20-5.40) Hemoglobin 8.6 G/DL (12.0-16.0) 8.2 G/DL (12.0-16.0) 7.2 G/DL (12.0-16.0) Hematocrit 27.7 % (37.0-47.0) 25.7 % (37.0-47.0) 22.9 % (37.0-47.0) Mean Corpuscular Volume 71 FL (80-99) 70 FL (80-99) 70 FL (80-99) Mean Corpuscular Hemoglobin 22.0 PG (27.0-31.0) 22.2 PG (27.0-31.0) 22.0 PG (27.0-31.0) Mean Corpuscular Hemoglobin Concent 31.1 G/DL (32.0-36.0) 31.9 G/DL (32.0-36.0) 31.6 G/DL (32.0-36.0) Red Cell Distribution Width 16.7 % (11.6-14.8) 14.0 % (11.6-14.8) 14.2 % (11.6-14.8) Platelet Count 98 K/UL (150-450) 88 K/UL (150-450) 74 K/UL (150-450) Mean Platelet Volume 8.4 FL (6.5-10.1) 8.3 FL (6.5-10.1) 6.5 FL (6.5-10.1) Neutrophils (%) (Auto) % (45.0-75.0) % (45.0-75.0) % (45.0-75.0) Lymphocytes (%) (Auto) % (20.0-45.0) % (20.0-45.0) % (20.0-45.0) Monocytes (%) (Auto) % (1.0-10.0) % (1.0-10.0) % (1.0-10.0) Eosinophils (%) (Auto) % (0.0-3.0) % (0.0-3.0) % (0.0-3.0) Basophils (%) (Auto) % (0.0-2.0) % (0.0-2.0) % (0.0-2.0) Differential Total Cells Counted 100 100 Neutrophils % (Manual) 82 % (45-75) 69 % (45-75) Lymphocytes % (Manual) 9 % (20-45) 20 % (20-45) Monocytes % (Manual) 6 % (1-10) 10 % (1-10) Eosinophils % (Manual) 0 % (0-3) 1 % (0-3) Basophils % (Manual) 0 % (0-2) 0 % (0-2) Band Neutrophils 3 % (0-8) 0 % (0-8) Platelet Estimate Decreased Decreased Platelet Morphology Normal Normal Hypochromasia 1+ 2+ Anisocytosis 1+ 1+ Microcytosis 1+ 1+ Sodium Level 140 MMOL/L (136-145) 140 MMOL/L (136-145) 141 MMOL/L (136-145) Potassium Level 4.3 MMOL/L (3.5-5.1) 4.3 MMOL/L (3.5-5.1) 4.5 MMOL/L (3.5-5.1) Chloride Level 108 MMOL/L (98-107) 108 MMOL/L (98-107) 110 MMOL/L (98-107) Carbon Dioxide Level 25 MMOL/L (21-32) 25 MMOL/L (21-32) 26 MMOL/L (21-32) Anion Gap 7 mmol/L (5-15) 7 mmol/L (5-15) 6 mmol/L (5-15) Blood Urea Nitrogen 39 mg/dL (7-18) 42 mg/dL (7-18) 34 mg/dL (7-18) Creatinine 1.2 MG/DL (0.55-1.30) 1.2 MG/DL (0.55-1.30) 1.1 MG/DL (0.55-1.30) Estimat Glomerular Filtration Rate mL/min (>60) mL/min (>60) mL/min (>60) Glucose Level 122 MG/DL (74-106) 108 MG/DL (74-106) 98 MG/DL (74-106) Calcium Level 7.5 MG/DL (8.5-10.1) 8.1 MG/DL (8.5-10.1) 7.8 MG/DL (8.5-10.1) Ferritin 751 NG/ML (8-388) Valproic Acid (Depakene) Level 36 MCG/ML (50-100) HIV (1&2) Antibody Rapid Negative (NEGATIVE) Test 04/13/19 21:20 04/14/19 04:40 White Blood Count 11.8 K/UL (4.8-10.8) Red Blood Count 4.11 M/UL (4.20-5.40) Hemoglobin 9.9 G/DL (12.0-16.0) Hematocrit 30.4 % (37.0-47.0) Mean Corpuscular Volume 74 FL (80-99) Mean Corpuscular Hemoglobin 24.2 PG (27.0-31.0) Mean Corpuscular Hemoglobin Concent 32.7 G/DL (32.0-36.0) Red Cell Distribution Width 18.3 % (11.6-14.8) Platelet Count 113 K/UL (150-450) Mean Platelet Volume 8.5 FL (6.5-10.1) Neutrophils (%) (Auto) 75.8 % (45.0-75.0) Lymphocytes (%) (Auto) 6.3 % (20.0-45.0) Monocytes (%) (Auto) 16.1 % (1.0-10.0) Eosinophils (%) (Auto) 0.9 % (0.0-3.0) Basophils (%) (Auto) 1.1 % (0.0-2.0) Prothrombin Time 14.0 SEC (9.30-11.50) Prothromb Time International Ratio 1.3 (0.9-1.1) Activated Partial Thromboplast Time 33 SEC (23-33) Sodium Level 139 MMOL/L (136-145) Potassium Level 4.4 MMOL/L (3.5-5.1) Chloride Level 109 MMOL/L (98-107) Carbon Dioxide Level 28 MMOL/L (21-32) Anion Gap 2 mmol/L (5-15) Blood Urea Nitrogen 31 mg/dL (7-18) Creatinine 0.9 MG/DL (0.55-1.30) Estimat Glomerular Filtration Rate mL/min (>60) Glucose Level 96 MG/DL (74-106) Calcium Level 7.7 MG/DL (8.5-10.1) Total Bilirubin 2.3 MG/DL (0.2-1.0) Aspartate Amino Transf (AST/SGOT) 41 U/L (15-37) Alanine Aminotransferase (ALT/SGPT) 19 U/L (12-78) Alkaline Phosphatase 80 U/L (46-116) Total Protein 6.7 G/DL (6.4-8.2) Albumin 1.6 G/DL (3.4-5.0) Globulin 5.1 g/dL Albumin/Globulin Ratio 0.3 (1.0-2.7) Thyroid Stimulating Hormone (TSH) 3.990 uiU/mL (0.358-3.740) Free Thyroxine 1.31 NG/DL (0.76-1.46) Height (Feet): 5 Height (Inches): 4.00 Weight (Pounds): 152 Objective Physical Exam: Vitals: reviewed General Appearance: ++ confused HEENT: normocephalic, atraumatic Neck: non-tender, normal alignment Respiratory/Chest: normal breath sounds bilaterally Cardiovascular/Chest: normal peripheral pulses, normal rate Abdomen: normal bowel sounds, soft, nontender Extremities: normal range of motion Michele Landaverde MD Apr 14, 2019 05:57
[2019-04-14 06:02] LABS: BILIRUBIN,DIRECT 1.1 MG/DL (0.0-0.3)
[2019-04-14 06:17] LABS: % IRON SATURATION 46 % (15-50); IRON 71 ug/dL (50-175); TOTAL IRON BINDING CAPACITY 156 ug/dL (250-450)
[2019-04-14 08:00] VITALS: BP 168/69
--- NOTE | 2019-04-14 08:29 | Cardiology Report ---
APPROVED REPORT EKG Measurement Heart [id number] 130P40 [id number] Normal sinus rhythm Voltage criteria for left ventricular hypertrophy Possible Lateral infarct, age undetermined Abnormal ECG
--- NOTE | 2019-04-14 08:34 | Infectious Diseases Prog Note ---
Assessment/Plan Assessment/Plan 84yo woman with PMH below presents from prison with fever, worsened confusion, refusal to eat, vomiting. Temp 102 at prison. Per prison staff, pt was vomiting for one day. Pt currently unable to provide history. She states yes to every question. Cannot follow commands. ID consulted for fever. fever, intermittent Leukocytosis, fluctuating Lactic acidosis, SP Influenza with possible superimposed bacterial PNA flu A positive On 2L NC CXR: No definite infiltrate or pulmonary vascular congestion identified. The heart is borderline enlarged. The aorta is mildly enlarged consistent with atherosclerotic vascular disease. The bones are osteopenic. 04/12 CXR: Suboptimal inspiration currently. There may be some retrocardiac consolidation. There may be a small amount of pleural fluid on the left. The remainder the lungs and pleural spaces are grossly clear. The heart size is upper limits of normal. There are degenerative changes of both shoulders noted. r/o bacteremia 04/08 BCx: Staph hominis, likely contaminant 04/12 BCx: ngtd Possible UTI UA 5-10WBC UCx: NG 03/25/19 HIV Abt negative MRSA screen negative CRE screen negative VRE screen negative PCN Allergy possible received Ceftriaxone and Cefepime previously Plan: Oseltamivir #6/10 Levaquin #3/7 04/12 SP Azithromycin #5/5 04/08 SP Vancomycin and Azithromycin #1 f/u bcx f/u ucx monitor CXR elevate HOB, aspiration precaution discussed with RN Thank you for this consult. [facility] will continue to follow the patient with you. Subjective Allergies: Coded Allergies: PENICILLINS (Verified Allergy, Unknown, 04/08/19) Subjective Afebrile. 2L. Slight uptrend WBC. Objective Vital Signs Last 24 Hour Vital Signs Date Time Temp Pulse Resp B/P (MAP) Pulse Ox O2 Delivery O2 Flow Rate FiO2 04/14/19 08:00 98.1 87 20 168/69 (102) 100 04/14/19 06:53 99 Nasal Cannula 2.0 28 04/14/19 06:52 86 20 99 Nasal Cannula 2.0 28 04/14/19 04:00 85 04/14/19 04:00 Nasal Cannula 2.0 04/14/19 04:00 98.6 87 22 148/79 (102) 100 04/14/19 00:00 98.8 87 20 149/79 (102) 99 04/14/19 00:00 85 04/14/19 00:00 Nasal Cannula 2.0 04/13/19 21:00 87 18 99 Nasal Cannula 2.0 28 04/13/19 21:00 99 Nasal Cannula 2.0 28 04/13/19 20:34 162/82 04/13/19 20:00 99.9 89 20 162/82 (108) 100 04/13/19 20:00 Nasal Cannula 2.0 04/13/19 20:00 89 04/13/19 17:41 88 156/87 04/13/19 16:00 Nasal Cannula 2.0 04/13/19 16:00 98.4 77 20 159/72 (101) 100 04/13/19 15:36 90 04/13/19 15:25 98.5 04/13/19 13:29 89 04/13/19 12:00 99.1 91 20 149/95 (113) 100 04/13/19 12:00 Nasal Cannula 2.0 04/13/19 09:45 96 154/85 Height (Feet): 5 Height (Inches): 4.00 Weight (Pounds): 152 Objective Gen: NAD HEENT: anicteric sclera CV: RRR Resp: RRR. no wheezes Abd: normoactive Bs+. Soft. no TTP Ext: no LE edema Microbiology Date/Time Source Procedure Growth Status 04/12/19 16:40 Blood Blood Culture - Preliminary NO GROWTH AFTER 24 HOURS Resulted 04/12/19 16:25 Blood Blood Culture - Preliminary NO GROWTH AFTER 24 HOURS Resulted Laboratory Tests Test 04/13/19 15:30 04/13/19 21:20 04/14/19 04:40 Stool Occult Blood Pending Pending White Blood Count 11.8 K/UL (4.8-10.8) H Red Blood Count 4.11 M/UL (4.20-5.40) L Hemoglobin 9.9 G/DL (12.0-16.0) #L Hematocrit 30.4 % (37.0-47.0) #L Mean Corpuscular Volume 74 FL (80-99) L Mean Corpuscular Hemoglobin 24.2 PG (27.0-31.0) L Mean Corpuscular Hemoglobin Concent 32.7 G/DL (32.0-36.0) Red Cell Distribution Width 18.3 % (11.6-14.8) H Platelet Count 113 K/UL (150-450) #L Mean Platelet Volume 8.5 FL (6.5-10.1) Neutrophils (%) (Auto) 75.8 % (45.0-75.0) H Lymphocytes (%) (Auto) 6.3 % (20.0-45.0) L Monocytes (%) (Auto) 16.1 % (1.0-10.0) H Eosinophils (%) (Auto) 0.9 % (0.0-3.0) Basophils (%) (Auto) 1.1 % (0.0-2.0) Reticulocyte Count Pending Prothrombin Time 14.0 SEC (9.30-11.50) H Prothromb Time International Ratio 1.3 (0.9-1.1) H Activated Partial Thromboplast Time 33 SEC (23-33) Sodium Level 139 MMOL/L (136-145) Potassium Level 4.4 MMOL/L (3.5-5.1) Chloride Level 109 MMOL/L (98-107) H Carbon Dioxide Level 28 MMOL/L (21-32) Anion Gap 2 mmol/L (5-15) L Blood Urea Nitrogen 31 mg/dL (7-18) H Creatinine 0.9 MG/DL (0.55-1.30) Estimat Glomerular Filtration Rate mL/min (>60) Glucose Level 96 MG/DL (74-106) Calcium Level 7.7 MG/DL (8.5-10.1) L Iron Level 71 ug/dL (50-175) Total Iron Binding Capacity 156 ug/dL (250-450) L Percent Iron Saturation 46 % (15-50) Unsaturated Iron Binding 85 ug/dL (112-346) L Total Bilirubin 2.3 MG/DL (0.2-1.0) H Direct Bilirubin 1.1 MG/DL (0.0-0.3) H Aspartate Amino Transf (AST/SGOT) 41 U/L (15-37) H Alanine Aminotransferase (ALT/SGPT) 19 U/L (12-78) Alkaline Phosphatase 80 U/L (46-116) Total Protein 6.7 G/DL (6.4-8.2) Albumin 1.6 G/DL (3.4-5.0) L Globulin 5.1 g/dL Albumin/Globulin Ratio 0.3 (1.0-2.7) L Vitamin B12 Level 1623 PG/ML (193-986) H Folate 13.5 NG/ML (8.6-58.9) Thyroid Stimulating Hormone (TSH) 3.990 uiU/mL (0.358-3.740) Free Thyroxine 1.31 NG/DL (0.76-1.46) Current Medications Medications (Trade) Dose Ordered Sig/Brady Route PRN Reason Start Time Stop Time Status Last Admin Dose Admin Acetaminophen (Tylenol) 650 mg Q4H PRN RECTAL Mild Pain (Pain Scale 1-3) 04/08/19 23:30 05/08/19 23:29 04/13/19 21:49 Acetaminophen (Tylenol) 650 mg Q6H PRN ORAL Mild Pain/Temp > 100.5 04/09/19 04:00 05/09/19 03:59 04/11/19 16:09 Dextrose/Sodium Chloride 1,000 ml @ 75 mls/hr [id number] IV 04/10/19 13:28 05/10/19 13:27 04/13/19 21:48 Divalproex Sodium (Depakote Sprinkles) 125 mg EVERY 6 HOURS ORAL 04/10/19 12:00 05/10/19 11:59 04/14/19 06:09 Docusate Sodium (Colace) 100 mg DAILY ORAL 04/10/19 09:00 05/09/19 08:59 04/13/19 09:45 Heparin Sodium (Porcine) (Heparin 5000 units/ml) 5,000 units EVERY 12 HOURS SUBQ 04/09/19 09:30 05/09/19 09:29 04/09/19 09:35 Hydralazine HCl (Apresoline) 25 mg Q6H PRN ORAL For High Blood Pressure 04/09/19 04:00 05/09/19 03:59 04/13/19 20:34 Hydralazine HCl (Apresoline) 25 mg Q6H PRN ORAL For High Blood Pressure 04/12/19 22:15 05/12/19 22:14 Levofloxacin 50 ml @ 50 mls/hr DAILY IVPB 04/13/19 09:00 04/20/19 08:59 04/13/19 09:50 Metoprolol Tartrate (Lopressor) 25 mg BID ORAL 04/10/19 18:15 05/10/19 18:14 04/13/19 17:41 Oseltamivir Phosphate (Tamiflu) 30 mg BID ORAL 04/13/19 09:00 04/18/19 23:59 04/13/19 17:41 Tramadol HCl (Ultram) 50 mg Q8H PRN ORAL Severe Pain (Pain Scale 7-10) 04/09/19 04:00 04/16/19 03:59 04/10/19 17:19 Tana Steinberg MD Apr 14, 2019 08:34
--- NOTE | 2019-04-14 08:45 | Pulmonology Progress Note ---
Assessment/Plan Assessment/Plan IMPRESSION: 1. Influenza. 2. Hypertension. 3. COPD. 4. Dementia. DISCUSSION: Continue abx. Continue pulmonary hygiene and oxygen. I will follow as personal care assistant. Now DNR, DNI Subjective Interval Events: None new Constitutional: Reports: no symptoms HEENT: Repors: no symptoms Respiratory: Reports: no symptoms Cardiovascular: Reports: no symptoms Allergies: Coded Allergies: PENICILLINS (Verified Allergy, Unknown, 04/08/19) Objective Last 24 Hour Vital Signs Date Time Temp Pulse Resp B/P (MAP) Pulse Ox O2 Delivery O2 Flow Rate FiO2 04/14/19 08:00 98.1 87 20 168/69 (102) 100 04/14/19 06:53 99 Nasal Cannula 2.0 28 04/14/19 06:52 86 20 99 Nasal Cannula 2.0 28 04/14/19 04:00 85 04/14/19 04:00 Nasal Cannula 2.0 04/14/19 04:00 98.6 87 22 148/79 (102) 100 04/14/19 00:00 98.8 87 20 149/79 (102) 99 04/14/19 00:00 85 04/14/19 00:00 Nasal Cannula 2.0 04/13/19 21:00 87 18 99 Nasal Cannula 2.0 28 04/13/19 21:00 99 Nasal Cannula 2.0 28 04/13/19 20:34 162/82 04/13/19 20:00 99.9 89 20 162/82 (108) 100 04/13/19 20:00 Nasal Cannula 2.0 04/13/19 20:00 89 04/13/19 17:41 88 156/87 04/13/19 16:00 Nasal Cannula 2.0 04/13/19 16:00 98.4 77 20 159/72 (101) 100 04/13/19 15:36 90 04/13/19 15:25 98.5 04/13/19 13:29 89 04/13/19 12:00 99.1 91 20 149/95 (113) 100 04/13/19 12:00 Nasal Cannula 2.0 04/13/19 09:45 96 154/85 Intake and Output 04/13/19 04/14/19 19:00 07:00 Intake Total 500 ml 60 ml Output Total 550 ml 600 ml Balance -50 ml -540 ml Intake Oral 500 ml 60 ml Output Urine Total 550 ml 600 ml # Bowel Movements 2 General Appearance: no acute distress HEENT: normocephalic Respiratory/Chest: chest wall non-tender, lungs clear Cardiovascular: normal peripheral pulses, normal rate Microbiology Date/Time Source Procedure Growth Status 04/12/19 16:40 Blood Blood Culture - Preliminary NO GROWTH AFTER 24 HOURS Resulted 04/12/19 16:25 Blood Blood Culture - Preliminary NO GROWTH AFTER 24 HOURS Resulted Laboratory Tests 04/13/19 15:30: Stool Occult Blood [Pending] 04/13/19 21:20: Stool Occult Blood [Pending] 04/14/19 04:40: White Blood Count 11.8H, Red Blood Count 4.11L, Hemoglobin 9.9#L, Hematocrit 30.4#L, Mean Corpuscular Volume 74L, Mean Corpuscular Hemoglobin 24.2L, Mean Corpuscular Hemoglobin Concent 32.7, Red Cell Distribution Width 18.3H, Platelet Count 113#L, Mean Platelet Volume 8.5, Neutrophils (%) (Auto) 75.8H, Lymphocytes (%) (Auto) 6.3L, Monocytes (%) (Auto) 16.1H, Eosinophils (%) (Auto) 0.9, Basophils (%) (Auto) 1.1, Reticulocyte Count [Pending], Prothrombin Time 14.0H, Prothromb Time International Ratio 1.3H, Activated Partial Thromboplast Time 33, Sodium Level 139, Potassium Level 4.4, Chloride Level 109H, Carbon Dioxide Level 28, Anion Gap 2L, Blood Urea Nitrogen 31H, Creatinine 0.9, Estimat Glomerular Filtration Rate , Glucose Level 96, Calcium Level 7.7L, Iron Level 71, Total Iron Binding Capacity 156L, Percent Iron Saturation 46, Unsaturated Iron Binding 85L, Total Bilirubin 2.3H, Direct Bilirubin 1.1H, Aspartate Amino Transf (AST/SGOT) 41H, Alanine Aminotransferase (ALT/SGPT) 19, Alkaline Phosphatase 80, Total Protein 6.7, Albumin 1.6L, Globulin 5.1, Albumin/ Globulin Ratio 0.3L, Vitamin B12 Level 1623H, Folate 13.5, Thyroid Stimulating Hormone (TSH) 3.990H, Free Thyroxine 1.31 Current Medications Medications (Trade) Dose Ordered Sig/Brady Route PRN Reason Start Time Stop Time Status Last Admin Dose Admin Acetaminophen (Tylenol) 650 mg Q4H PRN RECTAL Mild Pain (Pain Scale 1-3) 04/08/19 23:30 05/08/19 23:29 04/13/19 21:49 Acetaminophen (Tylenol) 650 mg Q6H PRN ORAL Mild Pain/Temp > 100.5 04/09/19 04:00 05/09/19 03:59 04/11/19 16:09 Dextrose/Sodium Chloride 1,000 ml @ 75 mls/hr [id number] IV 04/10/19 13:28 05/10/19 13:27 04/13/19 21:48 Divalproex Sodium (Depakote Sprinkles) 125 mg EVERY 6 HOURS ORAL 04/10/19 12:00 05/10/19 11:59 04/14/19 06:09 Docusate Sodium (Colace) 100 mg DAILY ORAL 04/10/19 09:00 05/09/19 08:59 04/13/19 09:45 Heparin Sodium (Porcine) (Heparin 5000 units/ml) 5,000 units EVERY 12 HOURS SUBQ 04/09/19 09:30 05/09/19 09:29 04/09/19 09:35 Hydralazine HCl (Apresoline) 25 mg Q6H PRN ORAL For High Blood Pressure 04/09/19 04:00 05/09/19 03:59 04/13/19 20:34 Hydralazine HCl (Apresoline) 25 mg Q6H PRN ORAL For High Blood Pressure 04/12/19 22:15 05/12/19 22:14 Levofloxacin 50 ml @ 50 mls/hr DAILY IVPB 04/13/19 09:00 04/20/19 08:59 04/13/19 09:50 Metoprolol Tartrate (Lopressor) 25 mg BID ORAL 04/10/19 18:15 05/10/19 18:14 04/13/19 17:41 Oseltamivir Phosphate (Tamiflu) 30 mg BID ORAL 04/13/19 09:00 04/18/19 23:59 04/13/19 17:41 Tramadol HCl (Ultram) 50 mg Q8H PRN ORAL Severe Pain (Pain Scale 7-10) 04/09/19 04:00 04/16/19 03:59 04/10/19 17:19 Ferny Lawton MD Apr 14, 2019 08:45
[2019-04-14] MEDS: Metoprolol 25mg tab ORAL SCH ×2 (09:07→18:27)
[2019-04-14] MEDS: Docusate 100mg/10ml Liq ORAL SCH (09:08)
[2019-04-14] MEDS: Heparin 5000 units/ml inj SUBQ SCH (09:14)
[2019-04-14] MEDS: D5 1/2NS 1,000 ML IV SCH (10:48)
[2019-04-14 12:00] VITALS: BP 156/85
--- NOTE | 2019-04-14 13:36 | GI Progress Note ---
Assessment/Plan Problems: (1) Anemia ICD Codes: D64.9 - Anemia, unspecified SNOMED: 471113602 (2) Severe sepsis ICD Codes: A41.9 - Sepsis, unspecified organism; R65.20 - Severe sepsis without septic shock SNOMED: 70623651 (3) Malnutrition ICD Codes: E46 - Unspecified protein-calorie malnutrition SNOMED: 85608397 Status: unchanged Status Narrative Discussed with Dr. Cabrera. Assessment/Plan Fecal occult blood stool negative x2 Anemia work-up reviewed cardiac diet tolerated No plans for GI procedures at this time, only if emergent monitor H&H, prn transfusions bowel regimen ppi PO hydration + electrolye correction fu labs The patient was seen and examined at bedside and all new and available data was reviewed in the patients chart. I agree with the above findings, impression and plan. (Patient seen earlier today. Signature stamp does not reflect patient encounter time.). - Richard Cabrera MD Subjective Subjective limited Objective Last 24 Hour Vital Signs Date Time Temp Pulse Resp B/P (MAP) Pulse Ox O2 Delivery O2 Flow Rate FiO2 04/14/19 09:07 87 168/69 04/14/19 08:00 Nasal Cannula 2.0 04/14/19 08:00 81 04/14/19 08:00 98.1 87 20 168/69 (102) 100 04/14/19 06:53 99 Nasal Cannula 2.0 28 04/14/19 06:52 86 20 99 Nasal Cannula 2.0 28 04/14/19 04:00 85 04/14/19 04:00 Nasal Cannula 2.0 04/14/19 04:00 98.6 87 22 148/79 (102) 100 04/14/19 00:00 98.8 87 20 149/79 (102) 99 04/14/19 00:00 85 04/14/19 00:00 Nasal Cannula 2.0 04/13/19 21:00 87 18 99 Nasal Cannula 2.0 28 04/13/19 21:00 99 Nasal Cannula 2.0 28 04/13/19 20:34 162/82 04/13/19 20:00 99.9 89 20 162/82 (108) 100 04/13/19 20:00 Nasal Cannula 2.0 04/13/19 20:00 89 04/13/19 17:41 88 156/87 04/13/19 16:00 Nasal Cannula 2.0 04/13/19 16:00 98.4 77 20 159/72 (101) 100 04/13/19 15:36 90 04/13/19 15:25 98.5 Intake and Output 04/13/19 04/14/19 19:00 07:00 Intake Total 500 ml 60 ml Output Total 550 ml 600 ml Balance -50 ml -540 ml Intake Oral 500 ml 60 ml Output Urine Total 550 ml 600 ml # Bowel Movements 2 Laboratory Tests Test 04/13/19 15:30 04/13/19 21:20 04/14/19 04:40 Stool Occult Blood Negative (NEGATIVE) Negative (NEGATIVE) White Blood Count 11.8 K/UL (4.8-10.8) H Red Blood Count 4.11 M/UL (4.20-5.40) L Hemoglobin 9.9 G/DL (12.0-16.0) #L Hematocrit 30.4 % (37.0-47.0) #L Mean Corpuscular Volume 74 FL (80-99) L Mean Corpuscular Hemoglobin 24.2 PG (27.0-31.0) L Mean Corpuscular Hemoglobin Concent 32.7 G/DL (32.0-36.0) Red Cell Distribution Width 18.3 % (11.6-14.8) H Platelet Count 113 K/UL (150-450) #L Mean Platelet Volume 8.5 FL (6.5-10.1) Neutrophils (%) (Auto) 75.8 % (45.0-75.0) H Lymphocytes (%) (Auto) 6.3 % (20.0-45.0) L Monocytes (%) (Auto) 16.1 % (1.0-10.0) H Eosinophils (%) (Auto) 0.9 % (0.0-3.0) Basophils (%) (Auto) 1.1 % (0.0-2.0) Reticulocyte Count 0.6 % (0.5-2.0) Prothrombin Time 14.0 SEC (9.30-11.50) H Prothromb Time International Ratio 1.3 (0.9-1.1) H Activated Partial Thromboplast Time 33 SEC (23-33) Sodium Level 139 MMOL/L (136-145) Potassium Level 4.4 MMOL/L (3.5-5.1) Chloride Level 109 MMOL/L (98-107) H Carbon Dioxide Level 28 MMOL/L (21-32) Anion Gap 2 mmol/L (5-15) L Blood Urea Nitrogen 31 mg/dL (7-18) H Creatinine 0.9 MG/DL (0.55-1.30) Estimat Glomerular Filtration Rate mL/min (>60) Glucose Level 96 MG/DL (74-106) Calcium Level 7.7 MG/DL (8.5-10.1) L Iron Level 71 ug/dL (50-175) Total Iron Binding Capacity 156 ug/dL (250-450) L Percent Iron Saturation 46 % (15-50) Unsaturated Iron Binding 85 ug/dL (112-346) L Total Bilirubin 2.3 MG/DL (0.2-1.0) H Direct Bilirubin 1.1 MG/DL (0.0-0.3) H Aspartate Amino Transf (AST/SGOT) 41 U/L (15-37) H Alanine Aminotransferase (ALT/SGPT) 19 U/L (12-78) Alkaline Phosphatase 80 U/L (46-116) Total Protein 6.7 G/DL (6.4-8.2) Albumin 1.6 G/DL (3.4-5.0) L Globulin 5.1 g/dL Albumin/Globulin Ratio 0.3 (1.0-2.7) L Vitamin B12 Level 1623 PG/ML (193-986) H Folate 13.5 NG/ML (8.6-58.9) Thyroid Stimulating Hormone (TSH) 3.990 uiU/mL (0.358-3.740) Free Thyroxine 1.31 NG/DL (0.76-1.46) Height (Feet): 5 Height (Inches): 4.00 Weight (Pounds): 152 General Appearance: alert Cardiovascular: normal rate Respiratory/Chest: normal breath sounds, no respiratory distress Abdominal Exam: soft Usha Bryan HOLISTIC HEALTH PRACTITIONER Apr 14, 2019 13:36
--- NOTE | 2019-04-14 14:49 | General Progress Note ---
Assessment/Plan Problem List: (1) Malnutrition ICD Codes: E46 - Unspecified protein-calorie malnutrition SNOMED: 52107534 (2) Confusion ICD Codes: R41.0 - Disorientation, unspecified SNOMED: 945461204 (3) Renal insufficiency ICD Codes: N28.9 - Disorder of kidney and ureter, unspecified SNOMED: 445145484, 275063215 (4) Urinary tract infection ICD Codes: N39.0 - Urinary tract infection, site not specified SNOMED: 00848684 (5) Severe sepsis ICD Codes: A41.9 - Sepsis, unspecified organism; R65.20 - Severe sepsis without septic shock SNOMED: 23101691 Status: unchanged Assessment/Plan: o2 pulm tx abx pt diet eval cbc bmp am ltach eval Subjective Constitutional: Reports: weakness Allergies: Coded Allergies: PENICILLINS (Verified Allergy, Unknown, 04/08/19) All Systems: reviewed and negative except above Subjective o2nc sleepy Objective Last 24 Hour Vital Signs Date Time Temp Pulse Resp B/P (MAP) Pulse Ox O2 Delivery O2 Flow Rate FiO2 04/14/19 12:00 Nasal Cannula 2.0 04/14/19 12:00 98.6 89 18 156/85 (108) 100 04/14/19 12:00 90 04/14/19 09:07 87 168/69 04/14/19 08:00 Nasal Cannula 2.0 04/14/19 08:00 81 04/14/19 08:00 98.1 87 20 168/69 (102) 100 04/14/19 06:53 99 Nasal Cannula 2.0 28 04/14/19 06:52 86 20 99 Nasal Cannula 2.0 28 04/14/19 04:00 85 04/14/19 04:00 Nasal Cannula 2.0 04/14/19 04:00 98.6 87 22 148/79 (102) 100 04/14/19 00:00 98.8 87 20 149/79 (102) 99 04/14/19 00:00 85 04/14/19 00:00 Nasal Cannula 2.0 04/13/19 21:00 87 18 99 Nasal Cannula 2.0 28 04/13/19 21:00 99 Nasal Cannula 2.0 28 04/13/19 20:34 162/82 04/13/19 20:00 99.9 89 20 162/82 (108) 100 04/13/19 20:00 Nasal Cannula 2.0 04/13/19 20:00 89 04/13/19 17:41 88 156/87 04/13/19 16:00 Nasal Cannula 2.0 04/13/19 16:00 98.4 77 20 159/72 (101) 100 04/13/19 15:36 90 04/13/19 15:25 98.5 Intake and Output 04/13/19 04/14/19 19:00 07:00 Intake Total 500 ml 135 ml Output Total 550 ml 600 ml Balance -50 ml -465 ml Intake Oral 500 ml 60 ml IV Total 75 ml Output Urine Total 550 ml 600 ml # Bowel Movements 2 Laboratory Tests 04/13/19 15:30: Stool Occult Blood Negative 04/13/19 21:20: Stool Occult Blood Negative 04/14/19 04:40: White Blood Count 11.8H, Red Blood Count 4.11L, Hemoglobin 9.9#L, Hematocrit 30.4#L, Mean Corpuscular Volume 74L, Mean Corpuscular Hemoglobin 24.2L, Mean Corpuscular Hemoglobin Concent 32.7, Red Cell Distribution Width 18.3H, Platelet Count 113#L, Mean Platelet Volume 8.5, Neutrophils (%) (Auto) 75.8H, Lymphocytes (%) (Auto) 6.3L, Monocytes (%) (Auto) 16.1H, Eosinophils (%) (Auto) 0.9, Basophils (%) (Auto) 1.1, Reticulocyte Count 0.6, Prothrombin Time 14.0H, Prothromb Time International Ratio 1.3H, Activated Partial Thromboplast Time 33 , Sodium Level 139, Potassium Level 4.4, Chloride Level 109H, Carbon Dioxide Level 28, Anion Gap 2L, Blood Urea Nitrogen 31H, Creatinine 0.9, Estimat Glomerular Filtration Rate , Glucose Level 96, Calcium Level 7.7L, Iron Level 71 , Total Iron Binding Capacity 156L, Percent Iron Saturation 46, Unsaturated Iron Binding 85L, Total Bilirubin 2.3H, Direct Bilirubin 1.1H, Aspartate Amino Transf (AST/SGOT) 41H, Alanine Aminotransferase (ALT/SGPT) 19, Alkaline Phosphatase 80, Total Protein 6.7, Albumin 1.6L, Globulin 5.1, Albumin/Globulin Ratio 0.3L, Vitamin B12 Level 1623H, Folate 13.5, Thyroid Stimulating Hormone ( TSH) 3.990H, Free Thyroxine 1.31 Height (Feet): 5 Height (Inches): 4.00 Weight (Pounds): 152 General Appearance: lethargic EENT: normal ENT inspection Neck: normal alignment Cardiovascular: normal peripheral pulses, normal rate, regular rhythm Respiratory/Chest: chest wall non-tender, lungs clear, normal breath sounds Abdomen: normal bowel sounds, non tender, soft Extremities: normal inspection Edema: no edema noted Arm (L), no edema noted Arm (R), no edema noted Leg (L), no edema noted Leg (R), no edema noted Pedal (L), no edema noted Pedal (R), no edema noted Generalized Neurologic: sensory deficit Skin: normal pigmentation, warm/dry Braydon Mchugh DO Apr 14, 2019 14:49
[2019-04-14 16:00] VITALS: BP 149/78
--- NOTE | 2019-04-14 17:45 | Progress Note ---
DATE: 04/14/2019 SUBJECTIVE: This is a female patient. She is 84 years old. She has severe sepsis. She has got confusion, disorganized thought process, and decline in cognition below baseline. That is why, attending has requested daily psychiatric consultation for this patient. The patient has history of urinary tract infection, but also altered mental status, decline in cognition, declined thought process, disorganized. She does require daily psychiatric consultation. MENTAL STATUS EXAMINATION: This is an 84-year-old female. Appearance is disheveled. Attitude, irritable and agitated. Affect, guarded and restricted. Intellect poor. Mood, depressed, anxious. Motor activity, psychomotor agitation. Attention span is poor. Orientation x2. Speech is pressured. Thought process, disorganized and illogical. Insight and judgment is poor. DIAGNOSIS: Major depressive disorder, mild recurrent with psychotic features, rule out dementia. PLAN: 20 minutes of cognitive behavioral therapy to help her identify automatic negative thoughts and help her convert those negative thoughts to more positive thoughts to reduce depression, anxiety, mood lability. Namenda 5 mg twice a day, Depakote Sprinkles 125 mg every 6 hours. The patient will continued to be followed by Psychiatry throughout hospital course. Chart reviewed. Discussed with staff. Seen and assessed at bedside. Wyatt Payne M.D. DR: GENE JOB#: [id number] CC:
[2019-04-14 20:00] VITALS: BP 142/86
--- NOTE | 2019-04-14 23:58 | Cardiology Progress Note ---
Assessment/Plan Assessment/Plan 1. Sinus tachycardia, resolved, most likely due to sepsis. Continue IV ABx and hydration. 2D echocardiography had shown normal LV systolic function with normal intracardiac filling pressure. Off digoxin. 2. Acute kidney injury, most likely prerenal azotemia, continue on IV fluid. 3. History of GI bleeding in the past. 4. History of hypertension. 5. Mild pulmonary hypertension. Subjective Subjective Sinus rhythm at rate of 81. On NC oxygen. Objective Last 24 Hour Vital Signs Date Time Temp Pulse Resp B/P (MAP) Pulse Ox O2 Delivery O2 Flow Rate FiO2 04/14/19 20:00 98.4 94 24 142/86 (104) 100 04/14/19 20:00 100 04/14/19 20:00 Nasal Cannula 2.0 04/14/19 18:27 95 149/78 04/14/19 16:00 95 04/14/19 16:00 Nasal Cannula 2.0 04/14/19 16:00 98.5 95 19 149/78 (101) 99 04/14/19 12:00 Nasal Cannula 2.0 04/14/19 12:00 98.6 89 18 156/85 (108) 100 04/14/19 12:00 90 04/14/19 09:07 87 168/69 04/14/19 08:00 Nasal Cannula 2.0 04/14/19 08:00 81 04/14/19 08:00 98.1 87 20 168/69 (102) 100 04/14/19 06:53 99 Nasal Cannula 2.0 28 04/14/19 06:52 86 20 99 Nasal Cannula 2.0 28 04/14/19 04:00 85 04/14/19 04:00 Nasal Cannula 2.0 04/14/19 04:00 98.6 87 22 148/79 (102) 100 04/14/19 00:00 98.8 87 20 149/79 (102) 99 04/14/19 00:00 85 04/14/19 00:00 Nasal Cannula 2.0 Intake and Output 04/13/19 04/14/19 18:59 06:59 Intake Total 575 ml 60 ml Output Total 550 ml 600 ml Balance 25 ml -540 ml Intake Oral 500 ml 60 ml IV Total 75 ml Output Urine Total 550 ml 600 ml # Bowel Movements 2 2D Echo: LVEF 55-60%, MIld LVH, Grade LVDD, Mild MR, RVSP 43 mmHg Laboratory Tests Test 04/14/19 04:40 White Blood Count 11.8 K/UL (4.8-10.8) H Red Blood Count 4.11 M/UL (4.20-5.40) L Hemoglobin 9.9 G/DL (12.0-16.0) #L Hematocrit 30.4 % (37.0-47.0) #L Mean Corpuscular Volume 74 FL (80-99) L Mean Corpuscular Hemoglobin 24.2 PG (27.0-31.0) L Mean Corpuscular Hemoglobin Concent 32.7 G/DL (32.0-36.0) Red Cell Distribution Width 18.3 % (11.6-14.8) H Platelet Count 113 K/UL (150-450) #L Mean Platelet Volume 8.5 FL (6.5-10.1) Neutrophils (%) (Auto) 75.8 % (45.0-75.0) H Lymphocytes (%) (Auto) 6.3 % (20.0-45.0) L Monocytes (%) (Auto) 16.1 % (1.0-10.0) H Eosinophils (%) (Auto) 0.9 % (0.0-3.0) Basophils (%) (Auto) 1.1 % (0.0-2.0) Reticulocyte Count 0.6 % (0.5-2.0) Prothrombin Time 14.0 SEC (9.30-11.50) H Prothromb Time International Ratio 1.3 (0.9-1.1) H Activated Partial Thromboplast Time 33 SEC (23-33) Sodium Level 139 MMOL/L (136-145) Potassium Level 4.4 MMOL/L (3.5-5.1) Chloride Level 109 MMOL/L (98-107) H Carbon Dioxide Level 28 MMOL/L (21-32) Anion Gap 2 mmol/L (5-15) L Blood Urea Nitrogen 31 mg/dL (7-18) H Creatinine 0.9 MG/DL (0.55-1.30) Estimat Glomerular Filtration Rate mL/min (>60) Glucose Level 96 MG/DL (74-106) Calcium Level 7.7 MG/DL (8.5-10.1) L Iron Level 71 ug/dL (50-175) Total Iron Binding Capacity 156 ug/dL (250-450) L Percent Iron Saturation 46 % (15-50) Unsaturated Iron Binding 85 ug/dL (112-346) L Total Bilirubin 2.3 MG/DL (0.2-1.0) H Direct Bilirubin 1.1 MG/DL (0.0-0.3) H Aspartate Amino Transf (AST/SGOT) 41 U/L (15-37) H Alanine Aminotransferase (ALT/SGPT) 19 U/L (12-78) Alkaline Phosphatase 80 U/L (46-116) Total Protein 6.7 G/DL (6.4-8.2) Albumin 1.6 G/DL (3.4-5.0) L Globulin 5.1 g/dL Albumin/Globulin Ratio 0.3 (1.0-2.7) L Vitamin B12 Level 1623 PG/ML (193-986) H Folate 13.5 NG/ML (8.6-58.9) Thyroid Stimulating Hormone (TSH) 3.990 uiU/mL (0.358-3.740) Free Thyroxine 1.31 NG/DL (0.76-1.46) Microbiology Date/Time Source Procedure Growth Status 04/12/19 16:40 Blood Blood Culture - Preliminary NO GROWTH AFTER 24 HOURS Resulted 04/12/19 16:25 Blood Blood Culture - Preliminary NO GROWTH AFTER 24 HOURS Resulted Objective HEENT: Atraumatic and normocephalic. Anicteric. Pupils are equal, round, and reactive to light and accommodation. Extraocular muscles intact. NECK: JVP less than 5 cm. No carotid bruit. Carotid upstrokes 2+ bilaterally. CARDIOVASCULAR SYSTEM: Normal S1 and S2. Regular rate and rhythm. No murmurs, gallops, or rubs. LUNGS: Clear to auscultation bilaterally. ABDOMEN: Soft, nontender, and nondistended. No hepatosplenomegaly. Positive bowel sounds. EXTREMITIES: No evidence of edema, clubbing, or cyanosis. Maikel Garrett MD Apr 14, 2019 23:58
--- NOTE | 2019-04-15 08:53 | Discharge Summary ---
Discharge Summary Discharge Summary _ DATE OF ADMISSION: 04/08/2019 DATE OF DISCHARGE: 04/14/2019 DISCHARGED BY: Dr. Mchugh REASON FOR ADMISSION: 84 years old female, resident of [facility] facility, with past medical history of hypertension, COPD, seizure disorder, dementia, was sent for evaluation due to fever Upon evaluation in emergency department patient was febrile and tachycardic with heart rate 155. Laboratory work-up revealed leukocytosis WBC 17.7, hemoglobin 12.3, hematocrit 39.5. Platelet count 131. Lactic acid 3.3. Repeated lactic acid 4.7 Stable electrolytes. BUN 37, creatinine 1.6. Glucose 108. Troponin 0.037. EKG revealed sinus tachycardia, no acute ischemic changes. Urinalysis revealed no evidence of UTI , but showed +2 protein. Depakote level was subtherapeutic 26. Influenza swab was positive for influenza A. Chest x-ray demonstrated no acute cardiopulmonary pathology. Patient was admitted for further management. CONSULTANTS: armature repairer Dr. Garrett pulmonary Dr. Lawton ID specialist Dr. Steinberg GI specialist Dr. Cabrera bulk plant agent Dr. Giang funeral home makeup artist/oncologist Dr. Landaverde psychiatrist Dr. Payne [facility]: Patient admitted to [facility]. Patient was placed on isolation . Patient was started on IV fluids, Tamiflu and empiric antibiotic as per ID specialist recommendation. ID specialist followed Blood culture revealed Staph hominis. Urine culture was negative. Patient was follow-up with a chest x-ray. Leukocytosis initially worsened, then resolved on 04/13 and minimally elevated at 04/14 -11.8. Intermittent fevers continued and then stopped. Per ID specialist, initial blood culture were likely contaminant. Repeated blood culture on 1117 were negative. Patient completed treatment with azithromycin and will need to continue Levaquin to complete the course. Echocardiogram revealed preserved ejection fraction 55 to 60% with mild left ventricular hypertrophy. No evidence of wall motion abnormality. Right ventricular systolic pressure of 43 consistent with a mild pulmonary hypertension. Per armature repairer sinus tachycardia was most likely due to sepsis and resolved with IV hydration. Blood pressure was closely monitored and managed with metoprolol. Hydralazine was on board as needed for spiking blood pressure. DVT prophylaxis provided. Supplemental oxygen titrated to keep pulse oximetry above 92%. No evidence of COPD exacerbation. Garage Construction Equipment Mechanic closely followed. Renal ultrasound revealed no evidence of hydronephrosis. Noted perisplenic varices raising concern for portal hypertension. Gallbladder sludge and stones. Renal parameters and electrolytes were closely monitored. Electrolytes corrected as needed and nephrotoxic's were avoided. Lactic acidosis resolved on 04/09 -1.9. Acute kidney injury resolved. Upon discharge BUN from 37 down to 31 and creatinine from 1.6 down to 0.9. All electrolytes stable. CODE STATUS was changed to DNR/DNI on 04/10. GI specialist followed. Hepatitis panel revealed evidence of hepatitis C. Stool for occult blood was negative x2. Hemoglobin and hematocrit were closely monitored with goal to keep hemoglobin above 7. Anemia work-up was consistent with anemia of chronic disease. Epogen or iron were not particularly indicated. Ferritin 761. Prior to discharge hemoglobin 9.9, hematocrit 30.4. Patient was able to tolerate diet. No plans for GI procedure at this time , unless emergent. Patient passed swallow evaluation. Diet texture test provided as per speech therapist recommendation.. Strict aspiration/reflux precautions maintained with one-to-one supervision with feeding. Patient had a silent aspiration risk due to dementia. Speech therapist recommended video swallow evaluation , which can be done as outpatient. Protein supplement implemented in plan of care as per registered dietic Psychiatrist followed per psychiatrist patient had major depressive disorder moderate recurrent with psychotic features. Cognitive behavioral therapy provided. Psychiatric medication regimen optimized. Patient undergone transfusion of 2 units of packed red blood cells while in the hospital. Prior to discharge hemoglobin 9.9 hematocrit 30.4 Bowel regimen instituted. Oral hydration was encouraged. GI prophylaxis provided. Seizure precaution maintained. Depakote continued. No evidence of seizure activity while in the hospital. Supportive care provided. Patient required transfer to long-term acute care [facility] for further management. Patient was accepted at [facility]. Patient was stable for transfer. FINAL DIAGNOSES: Sepsis ( with intermittent fevers, fluctuating leukocytosis, initial fever and tachycardia, lactic acidosis) Influenza with possible superimposed bacterial pneumonia Possible UTI Sinus tachycardia, resolved ( likely due to sepsis) Acute kidney injury (most likely prerenal azotemia)-resolved History of GI bleeding Hypertension Mild pulmonary hypertension Anemia Malnutrition COPD GERD Hepatitis C Dementia Major depressive disorder, mild recurrent with psychotic features DISCHARGE MEDICATIONS: List of medication was sent to accepting facility DISCHARGE INSTRUCTIONS: Patient was discharged to termite inspector acute [facility] [place]. Follow-up with medical provider at the facility. I have been assigned to dictate discharge summary for this account. I was not involved in the patient's management. Juanita Doll NP Apr 15, 2019 08:53
== END 2019-04-14 22:20 | DRG 871 ==
LOC: EDBD 19:20 → EMR 21:00 → EDBEDREQ 21:40 → 2W 21:57
PROC: 30233N1 Transfusion of Nonautologous Red Blood Cells into Peripheral Vein, Percutaneous Approach (ICD-10-PCS; principal; 2019-04-13)
DX: A41.9 Sepsis, unspecified organism (principal); J11.00 Influenza due to unidentified influenza virus with unspecified type of pneumonia; N39.0 Urinary tract infection, site not specified; E46 Unspecified protein-calorie malnutrition; N17.9 Acute kidney failure, unspecified; F33.0 Major depressive disorder, recurrent, mild; R65.20 Severe sepsis without septic shock; Z88.0 Allergy status to penicillin; Z66 Do not resuscitate; I10 Essential (primary) hypertension; I27.20 Pulmonary hypertension, unspecified; D64.9 Anemia, unspecified; J44.9 Chronic obstructive pulmonary disease, unspecified; K21.9 Gastro-esophageal reflux disease without esophagitis; B19.20 Unspecified viral hepatitis C without hepatic coma; F03.90 Unspecified dementia, unspecified severity, without behavioral disturbance, psychotic disturbance, mood disturbance, and anxiety; F20.9 Schizophrenia, unspecified; H91.90 Unspecified hearing loss, unspecified ear; M19.90 Unspecified osteoarthritis, unspecified site; E86.0 Dehydration; E83.51 Hypocalcemia
CPT/HCPCS: 36415; 71045; 76770; 80048; 80053; 80164; 81003; 82043; 82044; 82164; 82248; 82270; 82553; 82570; 82607; 82728; 82746; 83540; 83550; 83605; 83735; 84439; 84443; 84484; 85007; 85025; 85044; 85610; 85730; 86703; 86705; 86709; 86710; 86803; 86850; 86900; 86901; 86920; 87040; 87081; 87086; 87181; 87340; 89050; 92610; 93005; 93306; 94640; 94664; 96365; 96367; 96375; 99285; J7030; J7620